=== PATIENT | female | born 1945 | race Caucasian/White ===

== ENCOUNTER 2016-06-19 21:03 | Emergency (ER) | payer MEDICARE, BC ==
[2016-06-19] MEDS ORDERED: ASPIRIN 81 MG CHEW TABLET As Ordered ONE (21:38)
[2016-06-19 21:44] LABS: MEAN CORPUSCULAR HEMOGLOBIN 30.6 pg (27.0-33.0); MEAN CORPUSCULAR HGB CONC 33.1 g/dl (32.0-36.5); MEAN CORPUSCULAR VOLUME 92.3 fl (80.0-96.0); RED CELL DISTRIBUTION WIDTH 12.3 % (11.5-14.5); WHITE BLOOD COUNT 8.7 K/mm3 (4.0-10.0)
[2016-06-19 21:48] LABS: INR 0.93
[2016-06-19 21:56] LABS: ANION GAP 6 MEQ/L (8-16); BLOOD UREA NITROGEN 14 MG/DL (7-18); CALCIUM LEVEL 8.6 MG/DL (8.8-10.2); CARBON DIOXIDE LEVEL 30 MEQ/L (21-32); CHLORIDE LEVEL 107 MEQ/L (98-107); CREATININE FOR GFR 0.75 MG/DL (0.55-1.02); GLOMERULAR FILTRATION RATE > 60.0 (>39); GLUCOSE, FASTING 93 MG/DL (83-110); SODIUM LEVEL 143 MEQ/L (136-145)
[2016-06-20] MEDS ORDERED: ISOVUE-370 76% 100ML VIAL (Q9967) As Ordered ONE (00:23)
--- NOTE | 2016-06-20 01:10 | REPUSA ---
CLINICAL HISTORY: Dyspnea, exclude PE. TECHNIQUE: Multiple incremental axial, coronal and oblique images are obtained from the thoracic inle t to the upper abdomen. Intravenous contrast material was administered as per pulmonary embolism prot ocol. COMMENTS: There is excellent opacification of pulmonary arterial system without evidence for pulmonary embolism . Aorta is of normal caliber without evidence for dissection or aneurysm. There is no evidence of pleural or parenchymal mass. Mild pulmonary emphysema. There are no pleural e ffusions. There is no evidence of hilar or mediastinal lymphadenopathy. The heart and great vessels a re within normal limits. Images of the upper abdomen demonstrate no evidence of adrenal mass. The bony structures are free of lytic or blastic lesions. Multilevel degenerative changes are seen in volving the visualized thoracolumbar spine. Scattered calcifications are seen involving the aorta and major branches compatible with atherosclero sis. 2.6 cm well-defined hypodense lesion of the right hepatic lobe. Small sliding hiatal hernia. IMPRESSION: No evidence for pulmonary embolism. Mild pulmonary emphysema. A well defined hypodense lesion of the right hepatic lobe. Thank you for your kind referral of this patient.
--- NOTE | 2016-06-20 03:08 | REP ---
Clinical: Acute chest pain . Comparison: 05/25/2016 . Technique: PA and lateral. Findings: The mediastinum and cardiac silhouette are normal. The lung [place] are relatively clear and without acute consolidation, effusion, or pneumothorax. The skeletal structures are intact and normal. Impression: 1. No acute cardiopulmonary process. Or focal consolidation appreciated. Signed by Tam Cunningham MD 06/20/2016 03:00 A
--- NOTE | 2016-06-20 04:07 | EDDOCDS ---
Nurse's Notes [facility] Name: Gaby Johnson Age: 71 yrs Sex: Female : 1945 Arrival Date: 06/19/2016 Time: 21:03 Bed OBSERVATION Private MD: Ally Sotelo L. Diagnosis: Chest pain, unspecified Presentation: 06/19 21:09 Presenting complaint: Patient states: chest pain radiating down left arm, intermittent af2 for 2-3 hours. denies n/v, SOB. Adult Sepsis Screening: The patient does not have new or worsening altered mentation. Patient's respiratory rate is less than 22. Systolic blood pressure is greater than 100. Patient has a qSOFA score of 0- Negative Sepsis Screen. Suicide/Homicide risk assessment- the patient denies having any suicidal and/or homicidal ideations and does not present with any other emotional, behavioral or mental health complaints. Status: Patient is not a service inspector or dependent. Transition of care: patient was not received from another setting of care. 21:09 Acuity: LUCIAN Level 2 af2 21:09 Method Of Arrival: Walkin/Carried/Asstd af2 21:13 Presenting complaint: pt states she was seen here for atrial fib last week. Aspirin was af2 not taken prior to arrival. Triage Assessment: 21:14 General: Appears in no apparent distress, Behavior is inappropriate for age. Pain: af2 Denies pain. Cardiovascular: Rhythm is sinus bradycardia No ectopy. Chest pain is denied. Respiratory: Airway is patent Respiratory effort is even, unlabored. GI: Denies nausea, vomiting. Derm: Skin is pink, warm & dry. Historical: - Allergies: Avelox (CHRISTENSEN); CEPHALOSPORINS; Ciprofloxacin (Swelling); Codeine Sulfate (Unknown); Crestor (hallucinations); Lipitor (hallucinations); Nitrofurantoin Macrocrystal (body aches); Novocain (heart races); Oxycodone-Acetaminophen; PENICILLINS; pravastatin (Anaphylaxis); SULFA (SULFONAMIDES) (Unknown); - Home Meds: 1. amlodipine 10 mg Oral tab 1 tab once daily 2. aspirin 81 mg Oral TbEC 1 tab once daily 3. atenolol 25 mg Oral tab 2 tabs 2 times per day 4. docusate sodium 100 mg Oral cap 1 cap once daily 5. Tylenol 325 mg Oral tab 2 tabs every 4-6 hours 6. wild yam 425 mg daily 7. Vitamin D3 1,000 unit oral chew 8. PreserVision Lutein 226-200-5-0.8 uh-bqno-hu-mg oral cap 9. nizatidine 150 mg oral cap 1 cap 2 times per day - PMHx: Asthma; Hypertension; Atrial Fib; - PSHx: Hysterectomy; Appendectomy; right foot; - Social history: Smoking status: Patient states former smoker of tobacco. No barriers to communication noted, The patient speaks fluent Czech. - Family history: Not pertinent. - : The pt / caregiver states he / she is not on anticoagulants. Home medication list is obtained from the patient. - Exposure Risk Screening:: None identified. Screenin:15 Screening information is obtained from the patient. Fall risk: At risk due to age. af2 Assistance ADL's: requires no assistance with activities of daily living. Abuse/DV Screen: The patient / caregiver reports he/she is: not in a situation that causes fear, pain or injury. Nutritional screening: No deficits noted. Advance Directives: There is no active DNR order. home support is adequate. Assessment: 21:16 General: Appears in no apparent distress, comfortable, Behavior is appropriate for age, af2 cooperative. Pain: Denies pain. Neurological: Level of Consciousness is awake, alert, obeys commands, Oriented to person, place, time. Cardiovascular: Heart tones S1 S2 present Rhythm is sinus bradycardia No ectopy. Respiratory: Airway is patent Respiratory effort is even, unlabored, Breath sounds are clear bilaterally. Derm: Skin is normal. 22:15 General: Appears in no apparent distress, comfortable, Behavior is appropriate for age, af2 cooperative. Neurological: Level of Consciousness is awake, alert, obeys commands, Oriented to person, place, time. Respiratory: Airway is patent Respiratory effort is even, unlabored. Derm: Skin is normal. 23:15 General: Appears in no apparent distress, comfortable, Behavior is appropriate for age, af2 cooperative. Neurological: Level of Consciousness is awake, alert, obeys commands, Oriented to person, place, time. Respiratory: Airway is patent Respiratory effort is even, unlabored. Derm: Skin is normal. 06/20 00:15 General: Appears in no apparent distress, comfortable, Behavior is appropriate for age, af2 cooperative. Neurological: Level of Consciousness is awake, alert, obeys commands, Oriented to person, place, time. Respiratory: Airway is patent Respiratory effort is even, unlabored. Derm: Skin is normal. 01:42 General: Appears in no apparent distress, comfortable, Behavior is appropriate for age, af2 cooperative. Neurological: Level of Consciousness is awake, alert, obeys commands, Oriented to person, place, time. Respiratory: Airway is patent Respiratory effort is even, unlabored. Derm: Skin is normal. 02:45 General: Appears in no apparent distress, comfortable, Behavior is agitated, pt states af2 she needs to leave soon, offered pt to leave AMA after speaking with provider. pt states she would like to stay for the rest of testing.. Cardiovascular: Rhythm is sinus bradycardia No ectopy. Respiratory: Airway is patent Respiratory effort is even, unlabored. Derm: Skin is normal. 04:05 General: Appears in no apparent distress, Discharge instructions reviewed with pt sls1 including medication use and follow up with cardiology, pt verbalizes understanding of all instructions . Pain: Denies pain. Neurological: Level of Consciousness is awake, alert. Respiratory: No deficits noted. Vital Signs: 06/19 20:48 BP 139 / 65 (auto/); af2 20:48 Pulse 84 MON; Pulse Ox 96% ; af2 21:04 BP 166 / 86; Pulse 57; Resp 18; Pulse Ox 100% on R/A; Weight 66.68 kg (R); Height 5 ft. elp 4 in. (162.56 cm) (R); Pain 5/10; 21:27 BP 154 / 71 (auto/); af2 21:27 Pulse 54 MON; Pulse Ox 99% ; af2 21:40 BP 166 / 67 (auto/); af2 21:40 Pulse 90 MON; Pulse Ox 93% ; af2 06/20 00:32 Pulse 54 MON; Pulse Ox 97% ; af2 02:13 BP 131 / 63 (auto/); af2 02:15 BP 131 / 63; salty 02:52 BP 150 / 118 (auto/); af2 02:52 Pulse 52 MON; Resp 18 S; Pulse Ox 96% on R/A; af2 03:55 BP 129 / 66; Pulse 58; Resp 18; Temp 97.0(TE); Pulse Ox 95% on R/A; Pain 0/10; salty 06/19 21:04 Body Mass Index 25.23 (66.68 kg, 162.56 cm) elp Vitals: 06/19 21:04 Log In Time: June 19, 2016 at 21:02. RN notified that patient meets Red Flag elp criteria. ED Course: 21:04 Patient visited by Rosa Maria Bertrand PCA. elp 21:04 Ally Sotelo is Private Physician. elp 21:04 Patient moved to Waiting elp 21:05 Magnolia Hernandez RN is Primary Nurse. cz 21:05 Patient moved to 6 cz 21:06 Jace Cramer DO is Attending Physician. cs11 21:06 Patient visited by Jace Cramer DO. cs11 21:11 Triage Initiated af2 21:12 EKG done. (by ED staff). Reviewed by Jace Cramer DO. salty 21:13 Pt greeted and oriented to ED. Patient advised of names of staff involved in care, salty location of call sanchez, wait times and NPO status. Patient has correct armband on for positive identification. Placed in gown. Bed in low position. Call light in reach. Side rails up X2. athletic monitor on. Pulse ox on. NIBP on. 21:16 The patient / caregiver is instructed regarding the plan of care and ED course. af2 21:18 Patient visited by Magnolia Hernandez RN. af2 21:39 Patient moved to OBSERVATION cs11 22:16 [facility] Payment Agreement was scanned into [facility] [employer] and attached to record. zo 22:56 Patient visited by Magnolia Hernandez RN. af2 06/20 01:20 CT Chest Angio R/O PE Returned. EDMS 01:43 Patient visited by Magnolia Hernandez RN. af2 02:12 Patient visited by Magnolia Hernandez RN. af2 02:54 Patient visited by Alicia Langford PCA. salty 02:54 CARDIAC MARKER PANEL Sent. salty 02:54 EKG done. (by ED staff). Reviewed by Jace Cramer DO. salty 03:19 Chest, 2 View (pa\E\lat) Returned. EDMS 03:34 Patient visited by Magnolia Hernandez RN. af2 03:50 Rodolfo Herndon is Referral Physician. cs11 03:55 Patient visited by Alicia Langford PCA. salty 04:05 No IV's were initiated during this patient's visit. No procedures done that require sls1 assistance. Administered Medications: 06/19 21:45 Drug: Aspirin 324 mg [aspirin 81 mg chewable tablet (4 tabs)] Route: PO; af2 Order Results: Lab Order: CBC; SPEC'M 06/19/16 21:17 Test: WHITE BLOOD COUNT; Value: 8.7; Range: 4.0-10.0; Units: K/mm3; Status: F Test: RED BLOOD COUNT; Value: 4.48; Range: 4.00-5.40; Units: M/mm3; Status: F Test: HEMOGLOBIN; Value: 13.7; Range: 12.0-16.0; Units: g/dl; Status: F Test: HEMATOCRIT; Value: 41.4; Range: 36.0-47.0; Units: %; Status: F Test: MEAN CORPUSCULAR VOLUME; Value: 92.3; Range: 80.0-96.0; Units: fl; Status: F Test: MEAN CORPUSCULAR HEMOGLOBIN; Value: 30.6; Range: 27.0-33.0; Units: pg; Status: F Test: MEAN CORPUSCULAR HGB CONC; Value: 33.1; Range: 32.0-36.5; Units: g/dl; Status: F Test: RED CELL DISTRIBUTION WIDTH; Value: 12.3; Range: 11.5-14.5; Units: %; Status: F Test: PLATELET COUNT, AUTOMATED; Value: 198; Range: 150-450; Units: k/mm3; Status: F Lab Order: MED Profile; SPEC'M 06/19/16 21:17 Test: GLUCOSE, FASTING; Value: 93; Range: 83-110; Units: MG/DL; Status: F Test: BLOOD UREA NITROGEN; Value: 14; Range: 7-18; Units: MG/DL; Status: F Test: CREATININE FOR GFR; Value: 0.75; Range: 0.55-1.02; Units: MG/DL; Status: F Test: GLOMERULAR FILTRATION RATE; Value: > 60.0; Range: >39; Status: F Test: SODIUM LEVEL; Value: 143; Range: 136-145; Units: MEQ/L; Status: F Test: POTASSIUM SERUM; Value: 4.0; Range: 3.5-5.1; Units: MEQ/L; Status: F Test: CHLORIDE LEVEL; Value: 107; Range: 98-107; Units: MEQ/L; Status: F Test: CARBON DIOXIDE LEVEL; Value: 30; Range: 21-32; Units: MEQ/L; Status: F Test: ANION GAP; Value: 6; Range: 8-16; Abnormal: Below low normal; Units: MEQ/L; Status: F Test: CALCIUM LEVEL; Value: 8.6; Range: 8.8-10.2; Abnormal: Below low normal; Units: MG/DL; Status: F Test Note: ; Units are mL/min/1.73 m2 Chronic Kidney Disease Staging per NKF: Stage I & II GFR >=60 Normal to Mildly Decreased Stage III GFR 30-59 Moderately Decreased Stage IV GFR 15-29 Severely Decreased Stage V GFR <15 Very Little GFR Left ESRD GFR <15 on SEARCH ENGINE MARKETING SPECIALIST Lab Order: Cardiac Marker Panel; SPEC'M 06/19/16 21:17 Test: CPK CREATINE PHOSPHOKINASE; Value: 96; Range: 26-192; Units: U/L; Status: F Test: CK-MB VALUE MASS; Value: 2.3; Range: 0.0-3.6; Units: NG/ML; Status: F Test: MB/CK RELATIVE INDEX; Value: 2.39; Range: < OR =4; Status: F Test: TROPONIN I; Value: < 0.02; Range: < 0.10; Units: NG/ML; Status: F Test Note: ; DIAGNOSIS CRITERIA MMB ng/ml Relative Index (RI) NON-AMI < or = 5 N/A SUNG ZONE > 5 < or = 4 AMI > 5 > 4 Lab Order: Pt & Aptt; SPEC'M 06/19/16 21:17 Test: PROTHROMBIN TIME; Value: 12.6; Range: 12.3-14.5; Units: SECONDS; Status: F Test: INR; Value: 0.93; Status: F Test: PARTIAL THROMBOPLASTIN TIME; Value: 28.2; Range: 26.6-37.1; Units: SECONDS; Status: F Test Note: ; THERAPUTIC HUMAN INR VALUES INDICATIONS NORMAL RANGES PROPHYLAXIS/TREATMENT OF: VENOUS THROMBOSIS 2.0-3.0 PULMONARY EMBOLISM 2.0-3.0 PREVENTION OF SYSTEMIC EMBOLISM FROM: TISSUE HEART VALVES 2.0-3.0 ACUTE MYOCARDIAL INFARCTION 2.0-3.0 VALVULAR HEART DISEASE 2.0-3.0 ATRIAL FIBRILLATION 2.0-3.0 MECHANICAL VALVES(HIGH RISK) 2.5-3.5 RECURRENT MYOCARDIAL INFARCTION 2.5-3.5 Lab Order: CARDIAC MARKER PANEL; SPEC'M 06/20/16 02:51 Test: CPK CREATINE PHOSPHOKINASE; Value: 76; Range: 26-192; Units: U/L; Status: F Test: CK-MB VALUE MASS; Value: 1.9; Range: 0.0-3.6; Units: NG/ML; Status: F Test: MB/CK RELATIVE INDEX; Value: 2.50; Range: < OR =4; Status: F Test: TROPONIN I; Value: < 0.02; Range: < 0.10; Units: NG/ML; Status: F Test Note: ; DIAGNOSIS CRITERIA MMB ng/ml Relative Index (RI) NON-AMI < or = 5 N/A SUNG ZONE > 5 < or = 4 AMI > 5 > 4 Radiology Order: Chest, 2 View (pa\E\lat) Test: Chest, 2 View (pa\E\lat) REASON FOR EXAMINATION: Chest Pain; Clinical: Acute chest pain .; ; Comparison: 05/25/2016 .; ; Technique: PA and lateral.; ; Findings:; The mediastinum and cardiac silhouette are normal. The lung [place] are; relatively clear and without acute consolidation, effusion, or pneumothorax. The; skeletal structures are intact and normal.; ; Impression:; 1. No acute cardiopulmonary process. Or focal consolidation appreciated.; ; ; Signed by; Tam Cunningham MD 06/20/2016 03:00 A; Radiology Order: CT Chest Angio R/O PE Test: CT Chest Angio R/O PE REASON FOR EXAMINATION: Chest Pain; ; CLINICAL HISTORY: Dyspnea, exclude PE.; TECHNIQUE: Multiple incremental axial, coronal and oblique images are obtained from the thoracic inle; t to the upper abdomen. Intravenous contrast material was administered as per pulmonary embolism prot; ocol.; COMMENTS:; There is excellent opacification of pulmonary arterial system without evidence for pulmonary embolism; . Aorta is of normal caliber without evidence for dissection or aneurysm.; There is no evidence of pleural or parenchymal mass. Mild pulmonary emphysema. There are no pleural e; ffusions. There is no evidence of hilar or mediastinal lymphadenopathy. The heart and great vessels a; re within normal limits.; Images of the upper abdomen demonstrate no evidence of adrenal mass.; The bony structures are free of lytic or blastic lesions. Multilevel degenerative changes are seen in; volving the visualized thoracolumbar spine.; Scattered calcifications are seen involving the aorta and major branches compatible with atherosclero; sis.; 2.6 cm well-defined hypodense lesion of the right hepatic lobe.; Small sliding hiatal hernia.; IMPRESSION:; No evidence for pulmonary embolism.; Mild pulmonary emphysema.; A well defined hypodense lesion of the right hepatic lobe.; Thank you for your kind referral of this patient.; ; Outcome: 06/20 03:51 Discharge ordered by Provider. 11 04:05 Discharge Assessment: Patient awake, alert and oriented x 3. No cognitive and/or sls1 functional deficits noted. Patient verbalized understanding of disposition instructions. patient administered narcotics - no. The following High Risk Discharge criteria are identified: None. Discharged to home ambulatory. Condition: stable. CT Study completed. Property :Personal belongings accompany Pt. 04:06 Patient left the ED. sls1 Signatures: Dispatcher [employer] EDMS Rupesh Carver RN RN cz Olin, Zoeann zo Ewald, Destiny, ACTIVITIES DIRECTOR SCOUTING ACTIVITIES DIRECTOR SCOUTING Jen Lopez RN RN sls1 Jace Carmer DO DO cs11 Rosa Maria Bertrand, ACTIVITIES DIRECTOR SCOUTING ACTIVITIES DIRECTOR SCOUTING Magnolia Mary RN RN af2 MTDD
--- NOTE | 2016-06-20 04:07 | EDDOCDS ---
Physician Documentation [facility] Name: Gaby Johnson Age: 71 yrs Sex: Female : 1945 Arrival Date: 06/19/2016 Time: 21:03 Bed OBSERVATION Private MD: Ally Sotelo L. Disposition: 06/20/16 03:51 Discharged to Home/Self Care. Impression: Chest pain, unspecified. - Condition is Stable. - Prescriptions for Aspirin 81 mg - take 1 tablet by ORAL route once daily; 90 tablet. - Medication Reconciliation, Local Pharmacy Hours form. - Follow up: Rodolfo Herndon; When: Call to arrange an appointment; Reason: Recheck today's complaints. - Problem is new. - Symptoms have improved. Historical: - Allergies: Avelox (CHRISTENSEN); CEPHALOSPORINS; Ciprofloxacin (Swelling); Codeine Sulfate (Unknown); Crestor (hallucinations); Lipitor (hallucinations); Nitrofurantoin Macrocrystal (body aches); Novocain (heart races); Oxycodone-Acetaminophen; PENICILLINS; pravastatin (Anaphylaxis); SULFA (SULFONAMIDES) (Unknown); - Home Meds: 1. amlodipine 10 mg Oral tab 1 tab once daily 2. aspirin 81 mg Oral TbEC 1 tab once daily 3. atenolol 25 mg Oral tab 2 tabs 2 times per day 4. docusate sodium 100 mg Oral cap 1 cap once daily 5. Tylenol 325 mg Oral tab 2 tabs every 4-6 hours 6. wild yam 425 mg daily 7. Vitamin D3 1,000 unit oral chew 8. PreserVision Lutein 226-200-5-0.8 fb-neft-zn-mg oral cap 9. nizatidine 150 mg oral cap 1 cap 2 times per day - PMHx: Asthma; Hypertension; Atrial Fib; - PSHx: Hysterectomy; Appendectomy; right foot; - Social history: Smoking status: Patient states former smoker of tobacco. No barriers to communication noted, The patient speaks fluent Macedonian. - Family history: Not pertinent. - : The pt / caregiver states he / she is not on anticoagulants. Home medication list is obtained from the patient. - Exposure Risk Screening:: None identified. Vital Signs: 06/19 20:48 BP 139 / 65 (auto/); af2 20:48 Pulse 84 MON; Pulse Ox 96% ; af2 21:04 BP 166 / 86; Pulse 57; Resp 18; Pulse Ox 100% on R/A; Weight 66.68 kg / 147 lbs (R); elp Height 5 ft. 4 in. (162.56 cm) (R); Pain 5/10; 21:27 BP 154 / 71 (auto/); af2 21:27 Pulse 54 MON; Pulse Ox 99% ; af2 21:40 BP 166 / 67 (auto/); af2 21:40 Pulse 90 MON; Pulse Ox 93% ; af2 06/20 00:32 Pulse 54 MON; Pulse Ox 97% ; af2 02:13 BP 131 / 63 (auto/); af2 02:15 BP 131 / 63; salty 02:52 BP 150 / 118 (auto/); af2 02:52 Pulse 52 MON; Resp 18 S; Pulse Ox 96% on R/A; af2 03:55 BP 129 / 66; Pulse 58; Resp 18; Temp 97.0(TE); Pulse Ox 95% on R/A; Pain 0/10; salty 06/19 21:04 Body Mass Index 25.23 (66.68 kg, 162.56 cm) elp MDM: 06/19 21:07 ECG WITH READING ER PHYS+CARDIAG ordered. EDMS 21:20 Aspirin 324 mg PO once ordered. cs11 21:22 Chest, 2 View (pa\E\lat) Ordered. EDMS 21:33 IV Saline Lock ordered. cs11 21:34 CBC Ordered. EDMS 21:34 MED Profile Ordered. EDMS 21:34 Cardiac Marker Panel Ordered. EDMS 21:34 Pt & Aptt Ordered. EDMS 22:15 Financial registration complete. zo 22:16 [facility] Payment Agreement was scanned into [employer] and attached to record. zo 23:01 MED Profile Reviewed. cs11 23:01 CBC Reviewed. cs11 23:01 Cardiac Marker Panel Reviewed. cs11 23:01 Pt & Aptt Reviewed. cs11 23:04 CT Chest Angio R/O PE Ordered. EDMS 06/20 02:44 Misc Sanitation Worker Hosing Machinery Order ordered. cs11 02:48 Misc Sanitation Worker Hosing Machinery Order complete. tmm1 02:48 ECG WITH READING ER PHYS ordered. EDMS 02:49 CARDIAC MARKER PANEL Ordered. EDMS 03:49 CARDIAC MARKER PANEL Reviewed. cs11 03:49 Chest, 2 View (pa\E\lat) Reviewed. cs11 03:49 CT Chest Angio R/O PE Reviewed. cs11 Administered Medications: 06/19 21:45 Drug: Aspirin 324 mg [aspirin 81 mg chewable tablet (4 tabs)] Route: PO; af2 Signatures: Dispatcher [employer] Radha Solorzaon Shannon RN RN sls1 Jace Cramer DO DO cs11 Kisha Ashford, BEAD PICKER BEAD PICKER tmm1 Magnolia Hernandez RN RN af2 The chart was reviewed and I authenticate all verbal orders and agree with the evaluation and treatment provided.Attachments: 22:16 [facility] [place] zo MTDD
--- NOTE | 2016-06-20 12:56 | ECGEPIP ---
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
--- NOTE | 2016-06-20 13:01 | ECGEPIP ---
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
--- NOTE | 2016-06-22 05:07 | EDDOCDS ---
Physician Documentation [facility] Name: Gaby Johnson Age: 71 yrs Sex: Female : 1945 Arrival Date: 06/19/2016 Time: 21:03 Bed OBSERVATION Private MD: Ally Clements L. Disposition: 06/20/16 03:51 Discharged to Home/Self Care. Impression: Chest pain, unspecified. - Condition is Stable. - Prescriptions for Aspirin 81 mg - take 1 tablet by ORAL route once daily; 90 tablet. - Medication Reconciliation, Local Pharmacy Hours form. - Follow up: Rodolfo Herndon; When: Call to arrange an appointment; Reason: Recheck today's complaints. - Problem is new. - Symptoms have improved. Historical: - Allergies: Avelox (CHRISTENSEN); CEPHALOSPORINS; Ciprofloxacin (Swelling); Codeine Sulfate (Unknown); Crestor (hallucinations); Lipitor (hallucinations); Nitrofurantoin Macrocrystal (body aches); Novocain (heart races); Oxycodone-Acetaminophen; PENICILLINS; pravastatin (Anaphylaxis); SULFA (SULFONAMIDES) (Unknown); - Home Meds: 1. amlodipine 10 mg Oral tab 1 tab once daily 2. aspirin 81 mg Oral TbEC 1 tab once daily 3. atenolol 25 mg Oral tab 2 tabs 2 times per day 4. docusate sodium 100 mg Oral cap 1 cap once daily 5. Tylenol 325 mg Oral tab 2 tabs every 4-6 hours 6. wild yam 425 mg daily 7. Vitamin D3 1,000 unit oral chew 8. PreserVision Lutein 226-200-5-0.8 rz-crnc-vj-mg oral cap 9. nizatidine 150 mg oral cap 1 cap 2 times per day - PMHx: Asthma; Hypertension; Atrial Fib; - PSHx: Hysterectomy; Appendectomy; right foot; - Social history: Smoking status: Patient states former smoker of tobacco. No barriers to communication noted, The patient speaks fluent Frisian. - Family history: Not pertinent. - : The pt / caregiver states he / she is not on anticoagulants. Home medication list is obtained from the patient. - Exposure Risk Screening:: None identified. Vital Signs: 06/19 20:48 BP 139 / 65 (auto/); af2 20:48 Pulse 84 MON; Pulse Ox 96% ; af2 21:04 BP 166 / 86; Pulse 57; Resp 18; Pulse Ox 100% on R/A; Weight 66.68 kg / 147 lbs (R); elp Height 5 ft. 4 in. (162.56 cm) (R); Pain 5/10; 21:27 BP 154 / 71 (auto/); af2 21:27 Pulse 54 MON; Pulse Ox 99% ; af2 21:40 BP 166 / 67 (auto/); af2 21:40 Pulse 90 MON; Pulse Ox 93% ; af2 06/20 00:32 Pulse 54 MON; Pulse Ox 97% ; af2 02:13 BP 131 / 63 (auto/); af2 02:15 BP 131 / 63; salty 02:52 BP 150 / 118 (auto/); af2 02:52 Pulse 52 MON; Resp 18 S; Pulse Ox 96% on R/A; af2 03:55 BP 129 / 66; Pulse 58; Resp 18; Temp 97.0(TE); Pulse Ox 95% on R/A; Pain 0/10; salty 06/19 21:04 Body Mass Index 25.23 (66.68 kg, 162.56 cm) elp MDM: 06/19 21:07 ECG WITH READING ER PHYS+CARDIAG ordered. EDMS 21:20 Aspirin 324 mg PO once ordered. cs11 21:22 Chest, 2 View (pa\E\lat) Ordered. EDMS 21:33 IV Saline Lock ordered. cs11 21:34 CBC Ordered. EDMS 21:34 MED Profile Ordered. EDMS 21:34 Cardiac Marker Panel Ordered. EDMS 21:34 Pt & Aptt Ordered. EDMS 22:15 Financial registration complete. zo 22:16 [facility] Payment Agreement was scanned into Pic[employer] and attached to record. zo 23:01 MED Profile Reviewed. cs11 23:01 CBC Reviewed. cs11 23:01 Cardiac Marker Panel Reviewed. cs11 23:01 Pt & Aptt Reviewed. cs11 23:04 CT Chest Angio R/O PE Ordered. EDMS 06/20 02:44 Misc Car Wash Manager Order ordered. cs11 02:48 Misc Car Wash Manager Order complete. tmm1 02:48 ECG WITH READING ER PHYS ordered. EDMS 02:49 CARDIAC MARKER PANEL Ordered. EDMS 03:49 CARDIAC MARKER PANEL Reviewed. cs11 03:49 Chest, 2 View (pa\E\lat) Reviewed. cs11 03:49 CT Chest Angio R/O PE Reviewed. cs11 12:41 T-Sheet-- Draft Copy was scanned into [employer] and attached to record. gb 12:41 ECG/EKG was scanned into MEDHOST and attached to record. gb 12:42 Radiology Report was scanned into MEDHOST and attached to record. gb 06/21 20:24 ED course: ally clements faxed formal report of cta for fu mlg. ml Administered Medications: 06/19 21:45 Drug: Aspirin 324 mg [aspirin 81 mg chewable tablet (4 tabs)] Route: PO; af2 Signatures: Dispatcher Med[employer] EDMS Faisal Bustamante MD MD ml Leslie Roblero, Reg Reg gb Radha He Shannon, RN RN sls1 Jace Cramer, DO cs11 Makeda, Kisha, ROLLER INSPECTOR AND MENDER ROLLER INSPECTOR AND MENDER tmm1 Magnolia Hernandez,RN RN af2 The chart was reviewed and I authenticate all verbal orders and agree with the evaluation and treatment provided.Attachments: 22:16 [facility] Payment Agreement zo 06/20 12:41 T-Sheet-- Draft Copy gb 12:41 ECG/EKG gb Chart Complete MTDD
--- NOTE | 2016-06-22 05:07 | EDDOCDS ---
Physician Documentation [facility] Name: Gaby Johnson Age: 71 yrs Sex: Female : 1945 Arrival Date: 06/19/2016 Time: 21:03 Bed OBSERVATION Private MD: Ally Clements L. Disposition: 06/20/16 03:51 Discharged to Home/Self Care. Impression: Chest pain, unspecified. - Condition is Stable. - Prescriptions for Aspirin 81 mg - take 1 tablet by ORAL route once daily; 90 tablet. - Medication Reconciliation, Local Pharmacy Hours form. - Follow up: Rodolfo Herndon; When: Call to arrange an appointment; Reason: Recheck today's complaints. - Problem is new. - Symptoms have improved. Historical: - Allergies: Avelox (CHRISTENSEN); CEPHALOSPORINS; Ciprofloxacin (Swelling); Codeine Sulfate (Unknown); Crestor (hallucinations); Lipitor (hallucinations); Nitrofurantoin Macrocrystal (body aches); Novocain (heart races); Oxycodone-Acetaminophen; PENICILLINS; pravastatin (Anaphylaxis); SULFA (SULFONAMIDES) (Unknown); - Home Meds: 1. amlodipine 10 mg Oral tab 1 tab once daily 2. aspirin 81 mg Oral TbEC 1 tab once daily 3. atenolol 25 mg Oral tab 2 tabs 2 times per day 4. docusate sodium 100 mg Oral cap 1 cap once daily 5. Tylenol 325 mg Oral tab 2 tabs every 4-6 hours 6. wild yam 425 mg daily 7. Vitamin D3 1,000 unit oral chew 8. PreserVision Lutein 226-200-5-0.8 fr-baow-zn-mg oral cap 9. nizatidine 150 mg oral cap 1 cap 2 times per day - PMHx: Asthma; Hypertension; Atrial Fib; - PSHx: Hysterectomy; Appendectomy; right foot; - Social history: Smoking status: Patient states former smoker of tobacco. No barriers to communication noted, The patient speaks fluent Korean. - Family history: Not pertinent. - : The pt / caregiver states he / she is not on anticoagulants. Home medication list is obtained from the patient. - Exposure Risk Screening:: None identified. Vital Signs: 06/19 20:48 BP 139 / 65 (auto/); af2 20:48 Pulse 84 MON; Pulse Ox 96% ; af2 21:04 BP 166 / 86; Pulse 57; Resp 18; Pulse Ox 100% on R/A; Weight 66.68 kg / 147 lbs (R); elp Height 5 ft. 4 in. (162.56 cm) (R); Pain 5/10; 21:27 BP 154 / 71 (auto/); af2 21:27 Pulse 54 MON; Pulse Ox 99% ; af2 21:40 BP 166 / 67 (auto/); af2 21:40 Pulse 90 MON; Pulse Ox 93% ; af2 06/20 00:32 Pulse 54 MON; Pulse Ox 97% ; af2 02:13 BP 131 / 63 (auto/); af2 02:15 BP 131 / 63; salty 02:52 BP 150 / 118 (auto/); af2 02:52 Pulse 52 MON; Resp 18 S; Pulse Ox 96% on R/A; af2 03:55 BP 129 / 66; Pulse 58; Resp 18; Temp 97.0(TE); Pulse Ox 95% on R/A; Pain 0/10; salty 06/19 21:04 Body Mass Index 25.23 (66.68 kg, 162.56 cm) elp MDM: 06/19 21:07 ECG WITH READING ER PHYS+CARDIAG ordered. EDMS 21:20 Aspirin 324 mg PO once ordered. cs11 21:22 Chest, 2 View (pa\E\lat) Ordered. EDMS 21:33 IV Saline Lock ordered. cs11 21:34 CBC Ordered. EDMS 21:34 MED Profile Ordered. EDMS 21:34 Cardiac Marker Panel Ordered. EDMS 21:34 Pt & Aptt Ordered. EDMS 22:15 Financial registration complete. zo 22:16 [facility] Payment Agreement was scanned into [employer] and attached to record. zo 23:01 MED Profile Reviewed. cs11 23:01 CBC Reviewed. cs11 23:01 Cardiac Marker Panel Reviewed. cs11 23:01 Pt & Aptt Reviewed. cs11 23:04 CT Chest Angio R/O PE Ordered. EDMS 06/20 02:44 Misc Transportation Maintenance Worker Order ordered. cs11 02:48 Misc Transportation Maintenance Worker Order complete. tmm1 02:48 ECG WITH READING ER PHYS ordered. EDMS 02:49 CARDIAC MARKER PANEL Ordered. EDMS 03:49 CARDIAC MARKER PANEL Reviewed. cs11 03:49 Chest, 2 View (pa\E\lat) Reviewed. cs11 03:49 CT Chest Angio R/O PE Reviewed. cs11 12:41 T-Sheet-- Draft Copy was scanned into [employer] and attached to record. gb 12:41 ECG/EKG was scanned into MEDHOST and attached to record. gb 12:42 Radiology Report was scanned into MEDHOST and attached to record. gb 06/21 20:24 ED course: ally clements faxed formal report of cta for fu mlg. ml Administered Medications: 06/19 21:45 Drug: Aspirin 324 mg [aspirin 81 mg chewable tablet (4 tabs)] Route: PO; af2 Signatures: Dispatcher Med[employer] EDMS Faisal Bustamante MD MD ml Leslie Roblero, Reg Reg gb Radha He Shannon, RN RN sls1 Jace Cramer, DO cs11 Makeda, Kisha, HEALTH AND SAFETY COORDINATOR HEALTH AND SAFETY COORDINATOR tmm1 Magnolia Hernandez,RN RN af2 The chart was reviewed and I authenticate all verbal orders and agree with the evaluation and treatment provided.Attachments: 22:16 [facility] Payment Agreement zo 06/20 12:41 T-Sheet-- Draft Copy gb 12:41 ECG/EKG gb Chart Complete MTDD
--- NOTE | 2016-06-22 05:07 | EDDOCDS ---
Nurse's Notes [facility] Name: Remigio Johnson Age: 71 yrs Sex: Female : 1945 Arrival Date: 06/19/2016 Time: 21:03 Bed OBSERVATION Private MD: Ally Sotelo L. Diagnosis: Chest pain, unspecified Presentation: 06/19 21:09 Presenting complaint: Patient states: chest pain radiating down left arm, intermittent af2 for 2-3 hours. denies n/v, SOB. Adult Sepsis Screening: The patient does not have new or worsening altered mentation. Patient's respiratory rate is less than 22. Systolic blood pressure is greater than 100. Patient has a qSOFA score of 0- Negative Sepsis Screen. Suicide/Homicide risk assessment- the patient denies having any suicidal and/or homicidal ideations and does not present with any other emotional, behavioral or mental health complaints. Status: Patient is not a claims customer service representative or dependent. Transition of care: patient was not received from another setting of care. 21:09 Acuity: LUCIAN Level 2 af2 21:09 Method Of Arrival: Walkin/Carried/Asstd af2 21:13 Presenting complaint: pt states she was seen here for atrial fib last week. Aspirin was af2 not taken prior to arrival. Triage Assessment: 21:14 General: Appears in no apparent distress, Behavior is inappropriate for age. Pain: af2 Denies pain. Cardiovascular: Rhythm is sinus bradycardia No ectopy. Chest pain is denied. Respiratory: Airway is patent Respiratory effort is even, unlabored. GI: Denies nausea, vomiting. Derm: Skin is pink, warm & dry. Historical: - Allergies: Avelox (CHRISTENSEN); CEPHALOSPORINS; Ciprofloxacin (Swelling); Codeine Sulfate (Unknown); Crestor (hallucinations); Lipitor (hallucinations); Nitrofurantoin Macrocrystal (body aches); Novocain (heart races); Oxycodone-Acetaminophen; PENICILLINS; pravastatin (Anaphylaxis); SULFA (SULFONAMIDES) (Unknown); - Home Meds: 1. amlodipine 10 mg Oral tab 1 tab once daily 2. aspirin 81 mg Oral TbEC 1 tab once daily 3. atenolol 25 mg Oral tab 2 tabs 2 times per day 4. docusate sodium 100 mg Oral cap 1 cap once daily 5. Tylenol 325 mg Oral tab 2 tabs every 4-6 hours 6. wild yam 425 mg daily 7. Vitamin D3 1,000 unit oral chew 8. PreserVision Lutein 226-200-5-0.8 kt-[id number]-[id number]-mg oral cap 9. nizatidine 150 mg oral cap 1 cap 2 times per day - PMHx: Asthma; Hypertension; Atrial Fib; - PSHx: Hysterectomy; Appendectomy; right foot; - Social history: Smoking status: Patient states former smoker of tobacco. No barriers to communication noted, The patient speaks fluent Japanese. - Family history: Not pertinent. - : The pt / caregiver states he / she is not on anticoagulants. Home medication list is obtained from the patient. - Exposure Risk Screening:: None identified. Screenin:15 Screening information is obtained from the patient. Fall risk: At risk due to age. af2 Assistance ADL's: requires no assistance with activities of daily living. Abuse/DV Screen: The patient / caregiver reports he/she is: not in a situation that causes fear, pain or injury. Nutritional screening: No deficits noted. Advance Directives: There is no active DNR order. home support is adequate. Assessment: 21:16 General: Appears in no apparent distress, comfortable, Behavior is appropriate for age, af2 cooperative. Pain: Denies pain. Neurological: Level of Consciousness is awake, alert, obeys commands, Oriented to person, place, time. Cardiovascular: Heart tones S1 S2 present Rhythm is sinus bradycardia No ectopy. Respiratory: Airway is patent Respiratory effort is even, unlabored, Breath sounds are clear bilaterally. Derm: Skin is normal. 22:15 General: Appears in no apparent distress, comfortable, Behavior is appropriate for age, af2 cooperative. Neurological: Level of Consciousness is awake, alert, obeys commands, Oriented to person, place, time. Respiratory: Airway is patent Respiratory effort is even, unlabored. Derm: Skin is normal. 23:15 General: Appears in no apparent distress, comfortable, Behavior is appropriate for age, af2 cooperative. Neurological: Level of Consciousness is awake, alert, obeys commands, Oriented to person, place, time. Respiratory: Airway is patent Respiratory effort is even, unlabored. Derm: Skin is normal. 06/20 00:15 General: Appears in no apparent distress, comfortable, Behavior is appropriate for age, af2 cooperative. Neurological: Level of Consciousness is awake, alert, obeys commands, Oriented to person, place, time. Respiratory: Airway is patent Respiratory effort is even, unlabored. Derm: Skin is normal. 01:42 General: Appears in no apparent distress, comfortable, Behavior is appropriate for age, af2 cooperative. Neurological: Level of Consciousness is awake, alert, obeys commands, Oriented to person, place, time. Respiratory: Airway is patent Respiratory effort is even, unlabored. Derm: Skin is normal. 02:45 General: Appears in no apparent distress, comfortable, Behavior is agitated, pt states af2 she needs to leave soon, offered pt to leave AMA after speaking with provider. pt states she would like to stay for the rest of testing.. Cardiovascular: Rhythm is sinus bradycardia No ectopy. Respiratory: Airway is patent Respiratory effort is even, unlabored. Derm: Skin is normal. 04:05 General: Appears in no apparent distress, Discharge instructions reviewed with pt sls1 including medication use and follow up with cardiology, pt verbalizes understanding of all instructions . Pain: Denies pain. Neurological: Level of Consciousness is awake, alert. Respiratory: No deficits noted. Vital Signs: 06/19 20:48 BP 139 / 65 (auto/); af2 20:48 Pulse 84 MON; Pulse Ox 96% ; af2 21:04 BP 166 / 86; Pulse 57; Resp 18; Pulse Ox 100% on R/A; Weight 66.68 kg (R); Height 5 ft. elp 4 in. (162.56 cm) (R); Pain 5/10; 21:27 BP 154 / 71 (auto/); af2 21:27 Pulse 54 MON; Pulse Ox 99% ; af2 21:40 BP 166 / 67 (auto/); af2 21:40 Pulse 90 MON; Pulse Ox 93% ; af2 06/20 00:32 Pulse 54 MON; Pulse Ox 97% ; af2 02:13 BP 131 / 63 (auto/); af2 02:15 BP 131 / 63; salty 02:52 BP 150 / 118 (auto/); af2 02:52 Pulse 52 MON; Resp 18 S; Pulse Ox 96% on R/A; af2 03:55 BP 129 / 66; Pulse 58; Resp 18; Temp 97.0(TE); Pulse Ox 95% on R/A; Pain 0/10; salty 06/19 21:04 Body Mass Index 25.23 (66.68 kg, 162.56 cm) elp Vitals: 06/19 21:04 Log In Time: June 19, 2016 at 21:02. RN notified that patient meets Red Flag elp criteria. ED Course: 21:04 Patient visited by Rosa Maria Bertrand PCA. elp 21:04 Ally Sotelo is Private Physician. elp 21:04 Patient moved to Waiting elp 21:05 Magnolia Hernandez RN is Primary Nurse. cz 21:05 Patient moved to 6 cz 21:06 Van Díaz DO is Attending Physician. cs11 21:06 Patient visited by Van Díaz DO. cs11 21:11 Triage Initiated af2 21:12 EKG done. (by ED staff). Reviewed by Van Díaz DO. salty 21:13 Pt greeted and oriented to ED. Patient advised of names of staff involved in care, salty location of call sanchez, wait times and NPO status. Patient has correct armband on for positive identification. Placed in gown. Bed in low position. Call light in reach. Side rails up X2. magazine publisher on. Pulse ox on. NIBP on. 21:16 The patient / caregiver is instructed regarding the plan of care and ED course. af2 21:18 Patient visited by Magnolia Hernandez RN. af2 21:39 Patient moved to OBSERVATION cs11 22:16 [facility] Payment Agreement was scanned into [employer] and attached to record. zo 22:56 Patient visited by Magnolia Hernandez RN. af2 06/20 01:20 CT Chest Angio R/O PE Returned. EDMS 01:43 Patient visited by Magnolia Hernandez RN. af2 02:12 Patient visited by Magnolia Hernandez RN. af2 02:54 Patient visited by Alicia Langford PCA. salty 02:54 CARDIAC MARKER PANEL Sent. salty 02:54 EKG done. (by ED staff). Reviewed by Van Díaz DO. salty 03:19 Chest, 2 View (pa\E\lat) Returned. EDMS 03:34 Patient visited by Magnolia Hernandez RN. af2 03:50 Rodolfo Herndon is Referral Physician. cs11 03:55 Patient visited by Alicia Langford PCA. salty 04:05 No IV's were initiated during this patient's visit. No procedures done that require sls1 assistance. 12:41 T-Sheet-- Draft Copy was scanned into [employer] and attached to record. gb 12:41 ECG/EKG was scanned into [employer] and attached to record. gb 12:42 Radiology Report was scanned into [employer] and attached to record. gb 13:09 EKG-ADULT Returned. EDMS 13:09 ECG WITH READING ER PHYS Returned. EDMS Administered Medications: 06/19 21:45 Drug: Aspirin 324 mg [aspirin 81 mg chewable tablet (4 tabs)] Route: PO; af2 Order Results: Lab Order: CBC; SPEC'M 06/19/16 21:17 Test: WHITE BLOOD COUNT; Value: 8.7; Range: 4.0-10.0; Units: K/mm3; Status: F Test: RED BLOOD COUNT; Value: 4.48; Range: 4.00-5.40; Units: M/mm3; Status: F Test: HEMOGLOBIN; Value: 13.7; Range: 12.0-16.0; Units: g/dl; Status: F Test: HEMATOCRIT; Value: 41.4; Range: 36.0-47.0; Units: %; Status: F Test: MEAN CORPUSCULAR VOLUME; Value: 92.3; Range: 80.0-96.0; Units: fl; Status: F Test: MEAN CORPUSCULAR HEMOGLOBIN; Value: 30.6; Range: 27.0-33.0; Units: pg; Status: F Test: MEAN CORPUSCULAR HGB CONC; Value: 33.1; Range: 32.0-36.5; Units: g/dl; Status: F Test: RED CELL DISTRIBUTION WIDTH; Value: 12.3; Range: 11.5-14.5; Units: %; Status: F Test: PLATELET COUNT, AUTOMATED; Value: 198; Range: 150-450; Units: k/mm3; Status: F Lab Order: MED Profile; SPEC'M 06/19/16 21:17 Test: GLUCOSE, FASTING; Value: 93; Range: 83-110; Units: MG/DL; Status: F Test: BLOOD UREA NITROGEN; Value: 14; Range: 7-18; Units: MG/DL; Status: F Test: CREATININE FOR GFR; Value: 0.75; Range: 0.55-1.02; Units: MG/DL; Status: F Test: GLOMERULAR FILTRATION RATE; Value: > 60.0; Range: >39; Status: F Test: SODIUM LEVEL; Value: 143; Range: 136-145; Units: MEQ/L; Status: F Test: POTASSIUM SERUM; Value: 4.0; Range: 3.5-5.1; Units: MEQ/L; Status: F Test: CHLORIDE LEVEL; Value: 107; Range: 98-107; Units: MEQ/L; Status: F Test: CARBON DIOXIDE LEVEL; Value: 30; Range: 21-32; Units: MEQ/L; Status: F Test: ANION GAP; Value: 6; Range: 8-16; Abnormal: Below low normal; Units: MEQ/L; Status: F Test: CALCIUM LEVEL; Value: 8.6; Range: 8.8-10.2; Abnormal: Below low normal; Units: MG/DL; Status: F Test Note: ; Units are mL/min/1.73 m2 Chronic Kidney Disease Staging per NKF: Stage I & II GFR >=60 Normal to Mildly Decreased Stage III GFR 30-59 Moderately Decreased Stage IV GFR 15-29 Severely Decreased Stage V GFR <15 Very Little GFR Left ESRD GFR <15 on CUTCH CLEANER Lab Order: Cardiac Marker Panel; SPEC'M 06/19/16 21:17 Test: CPK CREATINE PHOSPHOKINASE; Value: 96; Range: 26-192; Units: U/L; Status: F Test: CK-MB VALUE MASS; Value: 2.3; Range: 0.0-3.6; Units: NG/ML; Status: F Test: MB/CK RELATIVE INDEX; Value: 2.39; Range: < OR =4; Status: F Test: TROPONIN I; Value: < 0.02; Range: < 0.10; Units: NG/ML; Status: F Test Note: ; DIAGNOSIS CRITERIA MMB ng/ml Relative Index (RI) NON-AMI < or = 5 N/A SUNG ZONE > 5 < or = 4 AMI > 5 > 4 Lab Order: Pt & Aptt; SPEC'M 06/19/16 21:17 Test: PROTHROMBIN TIME; Value: 12.6; Range: 12.3-14.5; Units: SECONDS; Status: F Test: INR; Value: 0.93; Status: F Test: PARTIAL THROMBOPLASTIN TIME; Value: 28.2; Range: 26.6-37.1; Units: SECONDS; Status: F Test Note: ; THERAPUTIC HUMAN INR VALUES INDICATIONS NORMAL RANGES PROPHYLAXIS/TREATMENT OF: VENOUS THROMBOSIS 2.0-3.0 PULMONARY EMBOLISM 2.0-3.0 PREVENTION OF SYSTEMIC EMBOLISM FROM: TISSUE HEART VALVES 2.0-3.0 ACUTE MYOCARDIAL INFARCTION 2.0-3.0 VALVULAR HEART DISEASE 2.0-3.0 ATRIAL FIBRILLATION 2.0-3.0 MECHANICAL VALVES(HIGH RISK) 2.5-3.5 RECURRENT MYOCARDIAL INFARCTION 2.5-3.5 Lab Order: CARDIAC MARKER PANEL; [facility]' 06/20/16 02:51 Test: CPK CREATINE PHOSPHOKINASE; Value: 76; Range: 26-192; Units: U/L; Status: F Test: CK-MB VALUE MASS; Value: 1.9; Range: 0.0-3.6; Units: NG/ML; Status: F Test: MB/CK RELATIVE INDEX; Value: 2.50; Range: < OR =4; Status: F Test: TROPONIN I; Value: < 0.02; Range: < 0.10; Units: NG/ML; Status: F Test Note: ; DIAGNOSIS CRITERIA MMB ng/ml Relative Index (RI) NON-AMI < or = 5 N/A SUNG ZONE > 5 < or = 4 AMI > 5 > 4 Radiology Order: EKG-ADULT Test: EKG-ADULT REASON FOR EXAMINATION: Chest Pain; Stationary ECG Study; [facility] - ED; ; Test Date: 2016-06-19; Pat Name: REMIGIO JOHNSON Department:; Room: -; Gender: F 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; : 1945 Requested By: VAN DÍAZ; Order Number: [id number] Reading MD: Nimisha Pittman; Measurements; Intervals [place]; Rate: 55 P: 48; CO: 164 QRS: 28; QRSD: 88 T: 34; QT: 421; QTc: 403; Interpretive Statements; SINUS BRADYCARDIA; MODERATE ST DEPRESSION; SIMILAR 05/26/16; Electronically Signed On 06-20-2016 12:56:18 EST by Nimisha Pittman; Radiology Order: Chest, 2 View (pa\E\lat) Test: Chest, 2 View (pa\E\lat) REASON FOR EXAMINATION: Chest Pain; Clinical: Acute chest pain .; ; Comparison: 05/25/2016 .; ; Technique: PA and lateral.; ; Findings:; The mediastinum and cardiac silhouette are normal. The lung [place] are; relatively clear and without acute consolidation, effusion, or pneumothorax. The; skeletal structures are intact and normal.; ; Impression:; 1. No acute cardiopulmonary process. Or focal consolidation appreciated.; ; ; Signed by; Tam Cunningham MD 06/20/2016 03:00 A; Radiology Order: CT Chest Angio R/O PE Test: CT Chest Angio R/O PE REASON FOR EXAMINATION: Chest Pain; ; CLINICAL HISTORY: Dyspnea, exclude PE.; TECHNIQUE: Multiple incremental axial, coronal and oblique images are obtained from the thoracic inle; t to the upper abdomen. Intravenous contrast material was administered as per pulmonary embolism prot; ocol.; COMMENTS:; There is excellent opacification of pulmonary arterial system without evidence for pulmonary embolism; . Aorta is of normal caliber without evidence for dissection or aneurysm.; There is no evidence of pleural or parenchymal mass. Mild pulmonary emphysema. There are no pleural e; ffusions. There is no evidence of hilar or mediastinal lymphadenopathy. The heart and great vessels a; re within normal limits.; Images of the upper abdomen demonstrate no evidence of adrenal mass.; The bony structures are free of lytic or blastic lesions. Multilevel degenerative changes are seen in; volving the visualized thoracolumbar spine.; Scattered calcifications are seen involving the aorta and major branches compatible with atherosclero; sis.; 2.6 cm well-defined hypodense lesion of the right hepatic lobe.; Small sliding hiatal hernia.; IMPRESSION:; No evidence for pulmonary embolism.; Mild pulmonary emphysema.; A well defined hypodense lesion of the right hepatic lobe.; Thank you for your kind referral of this patient.; ; Radiology Order: ECG WITH READING ER PHYS Test: ECG WITH READING ER PHYS REASON FOR EXAMINATION: CHEST PAIN; Stationary ECG Study; [facility] - ED; ; Test Date: 2016-06-20; Pat Name: REMIGIO JOHNSON Department:; Room: -; Gender: F 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 cs11 04:05 Discharge Assessment: Patient awake, alert and oriented x 3. No cognitive and/or sls1 functional deficits noted. Patient verbalized understanding of disposition instructions. patient administered narcotics - no. The following High Risk Discharge criteria are identified: None. Discharged to home ambulatory. Condition: stable. CT Study completed. Property :Personal belongings accompany Pt. 04:06 Patient left the ED. sls1 Signatures: Dispatcher [employer] EDMS Rupesh Carver, BERTA RN Leslie Martínez, Roque Reg Radha Vickers Destiny, COAL TRAMMER COAL TRAMMER Jen Lopez RN RN sls1 Van Díaz, DO cs11 Rosa Maria Bertrand, COAL TRAMMER COAL TRAMMER Magnolia MayrRN RN af2 Chart Complete MTDD
== END 2016-06-20 04:06 | disposition home or self-care (01) ==
LOC: M ED 21:03
DX: R07.9 Chest pain, unspecified (principal); I10 Essential (primary) hypertension; I48.91 Unspecified atrial fibrillation; J45.909 Unspecified asthma, uncomplicated; Z79.899 Other long term (current) drug therapy; Z79.82 Long term (current) use of aspirin; Z88.0 Allergy status to penicillin; Z88.1 Allergy status to other antibiotic agents; Z88.2 Allergy status to sulfonamides; Z88.5 Allergy status to narcotic agent; Z88.6 Allergy status to analgesic agent; Z88.8 Allergy status to other drugs, medicaments and biological substances; Z87.891 Personal history of nicotine dependence
CPT/HCPCS: 36415; 71020; 71275; 80048; 82550; 82553; 84484; 85027; 85610; 85730; 93005; 99285; Q9967

== ENCOUNTER 2016-06-27 09:58 | Emergency (ER) | payer OTHER, MEDICARE, BC ==
--- NOTE | 2016-06-27 11:54 | EDDOCDS ---
Physician Documentation [facility] Name: Gaby Johnson Age: 71 yrs Sex: Female : 1945 Arrival Date: 06/27/2016 Time: 09:58 Bed TR8 Private MD: Ally Sotelo L. Disposition: 06/27/16 11:07 Discharged to Home/Self Care. Impression: Strain of muscle and tendon of back wall of thorax. - Condition is Stable. - Discharge Instructions: Muscle Strain. - Prescriptions for Cyclobenzaprine 5 mg Oral Tablet - take 1 tablet by ORAL route 3 times per day As needed; 15 tablet. - Medication Reconciliation, Local Pharmacy Hours, Work Release Form - 3 day form. - Follow up: Ally Sotelo; When: As previously arranged; Reason: Recheck today's complaints, Continuance of care. Follow up: Alirio Viramontes; When: As needed; Reason: Recheck today's complaints. - Problem is new. - Symptoms are unchanged. - Notes: avoid ibuprofen, naproxen or other NSAIDS because of the blood thinners you are taking. Historical: - Allergies: Avelox (CHRISTENSEN); CEPHALOSPORINS; Ciprofloxacin (Swelling); Codeine Sulfate (Unknown); Crestor (hallucinations); Lipitor (hallucinations); Nitrofurantoin Macrocrystal (body aches); Novocain (heart races); Oxycodone-Acetaminophen; PENICILLINS; pravastatin (Anaphylaxis); SULFA (SULFONAMIDES) (Unknown); - Home Meds: 1. aspirin 81 mg Oral TbEC 1 tab twice a day 2. atenolol 25 mg Oral tab 0.5 tab 2 times per day 3. PreserVision Lutein 226-200-5-0.8 ek-kacg-hn-mg oral cap 4. Vitamin D3 1,000 unit oral chew 5. Tylenol 325 mg Oral tab 2 tabs every 4-6 hours (Last dose: 06/26/2016 08:00) 6. docusate sodium 100 mg Oral cap 1 cap once daily 7. amlodipine 10 mg Oral tab 1 tab once daily 8. nizatidine 150 mg oral cap 1 cap 2 times per day 9. Eliquis 5 mg oral tab 1 tab 2 times per day has not started taking it - PMHx: Asthma; Atrial Fib; Hypertension; - PSHx: Hysterectomy; Appendectomy; right foot; - Social history: Smoking status: Patient states former smoker of tobacco. No barriers to communication noted, The patient speaks fluent Setswana, Speaks appropriately for age. - Family history: Not pertinent. - : The pt / caregiver states he / she is not on anticoagulants. Home medication list is obtained from the patient. - Exposure Risk Screening:: None identified. Vital Signs: 06/27 10:01 BP 138 / 68 RA Sitting (auto/reg); Pulse 59; Resp 18; Temp 96.5(O); Pulse Ox 100% ; jrd Weight 65.77 kg / 145 lbs; Height 5 ft. 3 in. (160.02 cm); Pain 9/10; 11:25 BP 133 / 84; Pulse 62; Resp 18; Pulse Ox 98% on R/A; Pain 2/10; ml6 10:01 Body Mass Index 25.69 (65.77 kg, 160.02 cm) jrd MDM: 11:39 Financial registration complete. lg 11:40 [facility] Payment Agreement was scanned into [employer] and attached to record. [id number] Signatures: John Stevens, Reg Reg lg Nestor Emery, LIZZIE SAMUEL ar2 Justin Andrade RN RN ml6 Tracy Stephenson RN RN hs1 Reese Becerra mm15 The chart was reviewed and I authenticate all verbal orders and agree with the evaluation and treatment provided.Attachments: 11:40 [facility] Payment Agreement mm15 MTDD
--- NOTE | 2016-06-27 11:54 | EDDOCDS ---
Nurse's Notes [facility] Name: Gaby Johnson Age: 71 yrs Sex: Female : 1945 Arrival Date: 06/27/2016 Time: 09:58 Bed TR8 Private MD: Ally Sotelo L. Diagnosis: Strain of muscle and tendon of back wall of thorax Presentation: 06/27 10:06 Presenting complaint: Patient states: patient was working at the [employer] and hs1 patient pulled on a clothing rack and then her back started hurting. Patient reports pain between shoulder blades and describes pain as burning. Acute neurological deficits are not present. Mechanism of Injury: pulling. Adult Sepsis Screening: The patient does not have new or worsening altered mentation. Patient's respiratory rate is less than 22. Systolic blood pressure is greater than 100. Patient has a qSOFA score of 0- Negative Sepsis Screen. Suicide/Homicide risk assessment- the patient denies having any suicidal and/or homicidal ideations and does not present with any other emotional, behavioral or mental health complaints. 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 Transition of care: patient was not received from another setting of care. 10:06 Acuity: LUCIAN Level 4 hs1 10:06 Method Of Arrival: Walkin/Carried/Asstd hs1 Triage Assessment: 10:13 General: Appears in no apparent distress, Behavior is appropriate for age, cooperative. hs1 Pain: Location: thoracic area Pain currently is 7 out of 10 on a pain scale. Quality of pain is described as aching. Musculoskeletal: Reports Pain is 7 out of 10 on a pain scale. Historical: - Allergies: Avelox (CHRISTENSEN); CEPHALOSPORINS; Ciprofloxacin (Swelling); Codeine Sulfate (Unknown); Crestor (hallucinations); Lipitor (hallucinations); Nitrofurantoin Macrocrystal (body aches); Novocain (heart races); Oxycodone-Acetaminophen; PENICILLINS; pravastatin (Anaphylaxis); SULFA (SULFONAMIDES) (Unknown); - Home Meds: 1. aspirin 81 mg Oral TbEC 1 tab twice a day 2. atenolol 25 mg Oral tab 0.5 tab 2 times per day 3. PreserVision Lutein 226-200-5-0.8 ah-zbyx-lj-mg oral cap 4. Vitamin D3 1,000 unit oral chew 5. Tylenol 325 mg Oral tab 2 tabs every 4-6 hours (Last dose: 06/26/2016 08:00) 6. docusate sodium 100 mg Oral cap 1 cap once daily 7. amlodipine 10 mg Oral tab 1 tab once daily 8. nizatidine 150 mg oral cap 1 cap 2 times per day 9. Eliquis 5 mg oral tab 1 tab 2 times per day has not started taking it - PMHx: Asthma; Atrial Fib; Hypertension; - PSHx: Hysterectomy; Appendectomy; right foot; - Social history: Smoking status: Patient states former smoker of tobacco. No barriers to communication noted, The patient speaks fluent Sudanese, Speaks appropriately for age. - Family history: Not pertinent. - : The pt / caregiver states he / she is not on anticoagulants. Home medication list is obtained from the patient. - Exposure Risk Screening:: None identified. Screenin:14 Screening information is obtained from the patient. Fall risk: No risks identified. hs1 Assistance ADL's: requires no assistance with activities of daily living. Abuse/DV Screen: The patient / caregiver reports he/she is: not in a situation that causes fear, pain or injury. Nutritional screening: No deficits noted. Advance Directives: There is no active DNR order. home support is adequate. Assessment: 11:25 General: Appears in no apparent distress, Behavior is appropriate for age, cooperative. ml6 Pain: Denies pain. Neurological: No deficits noted. Level of Consciousness is awake, alert, Oriented to person, place, time. Cardiovascular: No deficits noted. Capillary refill < 3 seconds is brisk in bilateral fingers toes. Respiratory: No deficits noted. Airway is patent Respiratory effort is even, unlabored, Respiratory pattern is regular, symmetrical, Breath sounds are clear bilaterally. GI: No deficits noted. Vital Signs: 10:01 BP 138 / 68 RA Sitting (auto/reg); Pulse 59; Resp 18; Temp 96.5(O); Pulse Ox 100% ; jrd Weight 65.77 kg; Height 5 ft. 3 in. (160.02 cm); Pain 9/10; 11:25 BP 133 / 84; Pulse 62; Resp 18; Pulse Ox 98% on R/A; Pain 2/10; ml6 10:01 Body Mass Index 25.69 (65.77 kg, 160.02 cm) d Vitals: 10:01 Log In Time: June 27, 2016 at 09:55. jrd ED Course: 09:59 Patient visited by Wang Felder PCA. jrd 09:59 Patient moved to Waiting jrd 10:00 Ally Sotelo is Private Physician. jrd 10:02 Patient visited by Wang Felder PCA. jrd 10:02 Patient moved to Pre RCE jrd 10:09 Triage Initiated hs1 10:25 Patient moved to Triage 2 hs1 10:29 Nestor Emery PA-C is PHCP. ar2 10:29 Faisal Bustamante MD is Attending Physician. ar2 10:47 Patient visited by Nestor Emery PA-C. ar2 11:06 Ally Sotelo is Referral Physician. ar2 11:06 Alirio Viramontes is Referral Physician. ar2 11:30 Patient moved to TR8 ml6 11:40 [facility] Payment Agreement was scanned into [employer] and attached to record. mm15 11:52 The patient / caregiver is instructed regarding the plan of care and ED course. ml6 11:52 No IV's were initiated during this patient's visit. No procedures done that require ml6 assistance. Order Results: There are currently no results for this order. Outcome: 11:07 Discharge ordered by Provider. ar2 11:52 Discharge Assessment: patient administered narcotics - no. The following High Risk ml6 Discharge criteria are identified: None. Discharged to home ambulatory. Condition: improved. Discharge instructions given to patient, Instructed on discharge instructions, follow up and referral plans. medication usage, no driving heavy equipment, Demonstrated understanding of instructions, medications, Prescriptions given X 1, Work note provided to patient. No special radiology studies were completed. Property sent home with patient. :Personal belongings accompany Pt. 11:53 Patient left the ED. ml6 Signatures: Nestor Emery PA-C PA-C ar2 Justin Andrade RN RN ml6 Tracy Stephenson RN RN hs1 Reese Becerra mm15 Wang Felder PCA PCA jrd MTDD
--- NOTE | 2016-06-29 12:54 | EDDOCDS ---
Physician Documentation [facility] Name: Gaby Johnson Age: 71 yrs Sex: Female : 1945 Arrival Date: 06/27/2016 Time: 09:58 Bed TR8 Private MD: Ally Sotelo L. Disposition: 06/27/16 11:07 Discharged to Home/Self Care. Impression: Strain of muscle and tendon of back wall of thorax. - Condition is Stable. - Discharge Instructions: Muscle Strain. - Prescriptions for Cyclobenzaprine 5 mg Oral Tablet - take 1 tablet by ORAL route 3 times per day As needed; 15 tablet. - Medication Reconciliation, Local Pharmacy Hours, Work Release Form - 3 day form. - Follow up: Ally Sotelo; When: As previously arranged; Reason: Recheck today's complaints, Continuance of care. Follow up: Alirio Viramontes; When: As needed; Reason: Recheck today's complaints. - Problem is new. - Symptoms are unchanged. - Notes: avoid ibuprofen, naproxen or other NSAIDS because of the blood thinners you are taking. Historical: - Allergies: Avelox (CHRISTENSEN); CEPHALOSPORINS; Ciprofloxacin (Swelling); Codeine Sulfate (Unknown); Crestor (hallucinations); Lipitor (hallucinations); Nitrofurantoin Macrocrystal (body aches); Novocain (heart races); Oxycodone-Acetaminophen; PENICILLINS; pravastatin (Anaphylaxis); SULFA (SULFONAMIDES) (Unknown); - Home Meds: 1. aspirin 81 mg Oral TbEC 1 tab twice a day 2. atenolol 25 mg Oral tab 0.5 tab 2 times per day 3. PreserVision Lutein 226-200-5-0.8 tv-ivbg-wn-mg oral cap 4. Vitamin D3 1,000 unit oral chew 5. Tylenol 325 mg Oral tab 2 tabs every 4-6 hours (Last dose: 06/26/2016 08:00) 6. docusate sodium 100 mg Oral cap 1 cap once daily 7. amlodipine 10 mg Oral tab 1 tab once daily 8. nizatidine 150 mg oral cap 1 cap 2 times per day 9. Eliquis 5 mg oral tab 1 tab 2 times per day has not started taking it - PMHx: Asthma; Atrial Fib; Hypertension; - PSHx: Hysterectomy; Appendectomy; right foot; - Social history: Smoking status: Patient states former smoker of tobacco. No barriers to communication noted, The patient speaks fluent German, Speaks appropriately for age. - Family history: Not pertinent. - : The pt / caregiver states he / she is not on anticoagulants. Home medication list is obtained from the patient. - Exposure Risk Screening:: None identified. Vital Signs: 06/27 10:01 BP 138 / 68 RA Sitting (auto/reg); Pulse 59; Resp 18; Temp 96.5(O); Pulse Ox 100% ; jrd Weight 65.77 kg / 145 lbs; Height 5 ft. 3 in. (160.02 cm); Pain 9/10; 11:25 BP 133 / 84; Pulse 62; Resp 18; Pulse Ox 98% on R/A; Pain 2/10; ml6 10:01 Body Mass Index 25.69 (65.77 kg, 160.02 cm) jrd MDM: 11:39 Financial registration complete. lg 11:40 [facility] Payment Agreement was scanned into [employer] and attached to record. mm15 14:26 T-Sheet-- Draft Copy was scanned into [employer] and attached to record. gb Signatures: Leslie Roblero, Reg Reg gb John Stevens, Reg Reg lg Nestor Emery PA-C PA-C ar2 Justin Andrade, RN RN ml6 Tracy Stephenson RN RN hs1 Reese Becerra mm15 The chart was reviewed and I authenticate all verbal orders and agree with the evaluation and treatment provided.Attachments: 11:40 [facility] Payment Agreement mm15 14:26 T-Sheet-- Draft Copy gb Chart Complete MTDD
--- NOTE | 2016-06-29 12:54 | EDDOCDS ---
Nurse's Notes [facility] Name: Gaby Johnson Age: 71 yrs Sex: Female : 1945 Arrival Date: 06/27/2016 Time: 09:58 Bed TR8 Private MD: Ally Sotelo L. Diagnosis: Strain of muscle and tendon of back wall of thorax Presentation: 06/27 10:06 Presenting complaint: Patient states: patient was working at the [employer] and hs1 patient pulled on a clothing rack and then her back started hurting. Patient reports pain between shoulder blades and describes pain as burning. Acute neurological deficits are not present. Mechanism of Injury: pulling. Adult Sepsis Screening: The patient does not have new or worsening altered mentation. Patient's respiratory rate is less than 22. Systolic blood pressure is greater than 100. Patient has a qSOFA score of 0- Negative Sepsis Screen. Suicide/Homicide risk assessment- the patient denies having any suicidal and/or homicidal ideations and does not present with any other emotional, behavioral or mental health complaints. 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 Transition of care: patient was not received from another setting of care. 10:06 Acuity: LUCIAN Level 4 hs1 10:06 Method Of Arrival: Walkin/Carried/Asstd hs1 Triage Assessment: 10:13 General: Appears in no apparent distress, Behavior is appropriate for age, cooperative. hs1 Pain: Location: thoracic area Pain currently is 7 out of 10 on a pain scale. Quality of pain is described as aching. Musculoskeletal: Reports Pain is 7 out of 10 on a pain scale. Historical: - Allergies: Avelox (CHRISTENSEN); CEPHALOSPORINS; Ciprofloxacin (Swelling); Codeine Sulfate (Unknown); Crestor (hallucinations); Lipitor (hallucinations); Nitrofurantoin Macrocrystal (body aches); Novocain (heart races); Oxycodone-Acetaminophen; PENICILLINS; pravastatin (Anaphylaxis); SULFA (SULFONAMIDES) (Unknown); - Home Meds: 1. aspirin 81 mg Oral TbEC 1 tab twice a day 2. atenolol 25 mg Oral tab 0.5 tab 2 times per day 3. PreserVision Lutein 226-200-5-0.8 se-utbg-kc-mg oral cap 4. Vitamin D3 1,000 unit oral chew 5. Tylenol 325 mg Oral tab 2 tabs every 4-6 hours (Last dose: 06/26/2016 08:00) 6. docusate sodium 100 mg Oral cap 1 cap once daily 7. amlodipine 10 mg Oral tab 1 tab once daily 8. nizatidine 150 mg oral cap 1 cap 2 times per day 9. Eliquis 5 mg oral tab 1 tab 2 times per day has not started taking it - PMHx: Asthma; Atrial Fib; Hypertension; - PSHx: Hysterectomy; Appendectomy; right foot; - Social history: Smoking status: Patient states former smoker of tobacco. No barriers to communication noted, The patient speaks fluent Tuvaluan, Speaks appropriately for age. - Family history: Not pertinent. - : The pt / caregiver states he / she is not on anticoagulants. Home medication list is obtained from the patient. - Exposure Risk Screening:: None identified. Screenin:14 Screening information is obtained from the patient. Fall risk: No risks identified. hs1 Assistance ADL's: requires no assistance with activities of daily living. Abuse/DV Screen: The patient / caregiver reports he/she is: not in a situation that causes fear, pain or injury. Nutritional screening: No deficits noted. Advance Directives: There is no active DNR order. home support is adequate. Assessment: 11:25 General: Appears in no apparent distress, Behavior is appropriate for age, cooperative. ml6 Pain: Denies pain. Neurological: No deficits noted. Level of Consciousness is awake, alert, Oriented to person, place, time. Cardiovascular: No deficits noted. Capillary refill < 3 seconds is brisk in bilateral fingers toes. Respiratory: No deficits noted. Airway is patent Respiratory effort is even, unlabored, Respiratory pattern is regular, symmetrical, Breath sounds are clear bilaterally. GI: No deficits noted. Vital Signs: 10:01 BP 138 / 68 RA Sitting (auto/reg); Pulse 59; Resp 18; Temp 96.5(O); Pulse Ox 100% ; jrd Weight 65.77 kg; Height 5 ft. 3 in. (160.02 cm); Pain 9/10; 11:25 BP 133 / 84; Pulse 62; Resp 18; Pulse Ox 98% on R/A; Pain 2/10; ml6 10:01 Body Mass Index 25.69 (65.77 kg, 160.02 cm) [facility] Vitals: 10:01 Log In Time: June 27, 2016 at 09:55. jrd ED Course: 09:59 Patient visited by Wang Felder PCA. jrd 09:59 Patient moved to Waiting jrd 10:00 Ally Sotelo is Private Physician. jrd 10:02 Patient visited by Wang Felder PCA. jrd 10:02 Patient moved to Pre RCE jrd 10:09 Triage Initiated hs1 10:25 Patient moved to Triage 2 hs1 10:29 Nestor Emery PA-C is PHCP. ar2 10:29 Faisal Bustamante MD is Attending Physician. ar2 10:47 Patient visited by Nestor Emery PA-C. ar2 11:06 Ally Sotelo is Referral Physician. ar2 11:06 Alirio Viramontes is Referral Physician. ar2 11:30 Patient moved to TR8 ml6 11:40 [facility] Payment Agreement was scanned into [employer] and attached to record. mm15 11:52 The patient / caregiver is instructed regarding the plan of care and ED course. ml6 11:52 No IV's were initiated during this patient's visit. No procedures done that require ml6 assistance. 14:26 T-Sheet-- Draft Copy was scanned into [employer] and attached to record. gb Order Results: There are currently no results for this order. Outcome: 11:07 Discharge ordered by Provider. ar2 11:52 Discharge Assessment: patient administered narcotics - no. The following High Risk ml6 Discharge criteria are identified: None. Discharged to home ambulatory. Condition: improved. Discharge instructions given to patient, Instructed on discharge instructions, follow up and referral plans. medication usage, no driving heavy equipment, Demonstrated understanding of instructions, medications, Prescriptions given X 1, Work note provided to patient. No special radiology studies were completed. Property sent home with patient. :Personal belongings accompany Pt. 11:53 Patient left the ED. ml6 Signatures: Leslie Roblero, Reg Reg gb Nestor Emery PA-C PA-C ar2 Justin Andrade RN RN ml6 Tracy Stephenson RN RN hs1 Reese Becerra mm15 Bradford, Wang, TECHNICAL COMMUNICATION TEACHER TECHNICAL COMMUNICATION TEACHER jrd Chart Complete MTDD
--- NOTE | 2016-06-29 12:54 | EDDOCDS ---
Physician Documentation [facility] Name: Gaby Johnson Age: 71 yrs Sex: Female : 1945 Arrival Date: 06/27/2016 Time: 09:58 Bed TR8 Private MD: Ally Sotelo L. Disposition: 06/27/16 11:07 Discharged to Home/Self Care. Impression: Strain of muscle and tendon of back wall of thorax. - Condition is Stable. - Discharge Instructions: Muscle Strain. - Prescriptions for Cyclobenzaprine 5 mg Oral Tablet - take 1 tablet by ORAL route 3 times per day As needed; 15 tablet. - Medication Reconciliation, Local Pharmacy Hours, Work Release Form - 3 day form. - Follow up: Ally Sotelo; When: As previously arranged; Reason: Recheck today's complaints, Continuance of care. Follow up: Alirio Viramontes; When: As needed; Reason: Recheck today's complaints. - Problem is new. - Symptoms are unchanged. - Notes: avoid ibuprofen, naproxen or other NSAIDS because of the blood thinners you are taking. Historical: - Allergies: Avelox (CHRISTENSEN); CEPHALOSPORINS; Ciprofloxacin (Swelling); Codeine Sulfate (Unknown); Crestor (hallucinations); Lipitor (hallucinations); Nitrofurantoin Macrocrystal (body aches); Novocain (heart races); Oxycodone-Acetaminophen; PENICILLINS; pravastatin (Anaphylaxis); SULFA (SULFONAMIDES) (Unknown); - Home Meds: 1. aspirin 81 mg Oral TbEC 1 tab twice a day 2. atenolol 25 mg Oral tab 0.5 tab 2 times per day 3. PreserVision Lutein 226-200-5-0.8 ke-zklc-lp-mg oral cap 4. Vitamin D3 1,000 unit oral chew 5. Tylenol 325 mg Oral tab 2 tabs every 4-6 hours (Last dose: 06/26/2016 08:00) 6. docusate sodium 100 mg Oral cap 1 cap once daily 7. amlodipine 10 mg Oral tab 1 tab once daily 8. nizatidine 150 mg oral cap 1 cap 2 times per day 9. Eliquis 5 mg oral tab 1 tab 2 times per day has not started taking it - PMHx: Asthma; Atrial Fib; Hypertension; - PSHx: Hysterectomy; Appendectomy; right foot; - Social history: Smoking status: Patient states former smoker of tobacco. No barriers to communication noted, The patient speaks fluent Hebrew, Speaks appropriately for age. - Family history: Not pertinent. - : The pt / caregiver states he / she is not on anticoagulants. Home medication list is obtained from the patient. - Exposure Risk Screening:: None identified. Vital Signs: 06/27 10:01 BP 138 / 68 RA Sitting (auto/reg); Pulse 59; Resp 18; Temp 96.5(O); Pulse Ox 100% ; jrd Weight 65.77 kg / 145 lbs; Height 5 ft. 3 in. (160.02 cm); Pain 9/10; 11:25 BP 133 / 84; Pulse 62; Resp 18; Pulse Ox 98% on R/A; Pain 2/10; ml6 10:01 Body Mass Index 25.69 (65.77 kg, 160.02 cm) jrd MDM: 11:39 Financial registration complete. lg 11:40 [facility] Payment Agreement was scanned into [employer] and attached to record. mm15 14:26 T-Sheet-- Draft Copy was scanned into [employer] and attached to record. gb Signatures: Leslie Roblero, Reg Reg gb John Stevens, Reg Reg lg Nestor Emery PA-C PA-C ar2 Justin Andrade, RN RN ml6 Tracy Stephenson RN RN hs1 Reese Becerra mm15 The chart was reviewed and I authenticate all verbal orders and agree with the evaluation and treatment provided.Attachments: 11:40 [facility] Payment Agreement mm15 14:26 T-Sheet-- Draft Copy gb Chart Complete MTDD
== END 2016-06-27 11:53 | disposition home or self-care (01) ==
LOC: M ED 09:58
DX: S29.012A Strain of muscle and tendon of back wall of thorax, initial encounter (principal); X58.XXXA Exposure to other specified factors, initial encounter; Y92.89 Other specified places as the place of occurrence of the external cause; Y93.89 Activity, other specified; Y99.0 Civilian activity done for income or pay; I10 Essential (primary) hypertension; I48.91 Unspecified atrial fibrillation; J45.909 Unspecified asthma, uncomplicated; Z90.79 Acquired absence of other genital organ(s); Z90.89 Acquired absence of other organs; Z87.891 Personal history of nicotine dependence; Z79.01 Long term (current) use of anticoagulants; Z79.82 Long term (current) use of aspirin; Z79.899 Other long term (current) drug therapy; Z88.0 Allergy status to penicillin; Z88.1 Allergy status to other antibiotic agents; Z88.2 Allergy status to sulfonamides; Z88.5 Allergy status to narcotic agent; Z88.4 Allergy status to anesthetic agent; Z88.8 Allergy status to other drugs, medicaments and biological substances

== ENCOUNTER 2016-06-30 09:08 | Emergency (ER) | payer OTHER, MEDICARE, BC ==
--- NOTE | 2016-06-30 10:14 | REP ---
THORACIC SPINE, THREE VIEWS: HISTORY: Back pain. There is no acute fracture or subluxation. There is loss of height of several mid and lower thoracic intervertebral discs. Osteophytes are present in the mid and lower thoracic spine. 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 The bony structures is osteopenic. IMPRESSION: Degenerative change as described above. Signed by Kade Grijalva MD 06/30/2016 10:19 A
--- NOTE | 2016-06-30 10:31 | EDDOCDS ---
Nurse's Notes [facility] Name: Gaby Johnson Age: 71 yrs Sex: Female : 1945 Arrival Date: 06/30/2016 Time: 09:08 Bed PR Private MD: Ally Sotelo L. Diagnosis: Strain of muscle and tendon of back wall of bbnnyp-vnmzgua-P/C Presentation: 06/30 09:18 Presenting complaint: Patient states: Continued mid back pain since injuring it about 4 dwg days ago, seen here 06/27/16 for same, has not taken any of the prescribed Flexeril. Acute neurological deficits are not present. Mechanism of Injury: Pulling motion. Adult Sepsis Screening: The patient does not have new or worsening altered mentation. Patient's respiratory rate is less than 22. Systolic blood pressure is greater than 100. Patient has a qSOFA score of 0- Negative Sepsis Screen. Suicide/Homicide risk assessment- the patient denies having any suicidal and/or homicidal ideations and does not present with any other emotional, behavioral or mental health complaints. Status: Patient is not a cashier self service gasoline or dependent. Transition of care: patient was not received from another setting of care. 09:18 Acuity: LUCIAN Level 5 dwg 09:18 Method Of Arrival: Walkin/Carried/Asstd dwg Triage Assessment: 09:23 General: Appears in no apparent distress. Pain: Pain currently is 7 out of 10 on a pain dwg scale. Historical: - Allergies: Avelox (CHRISTENSEN); CEPHALOSPORINS; Ciprofloxacin (Swelling); Codeine Sulfate (Unknown); Crestor (hallucinations); Lipitor (hallucinations); Nitrofurantoin Macrocrystal (body aches); Novocain (heart races); Oxycodone-Acetaminophen; PENICILLINS; pravastatin (Anaphylaxis); SULFA (SULFONAMIDES) (Unknown); - Home Meds: 1. amlodipine 10 mg Oral tab 1 tab once daily (Last dose: 06/30/2016) 2. atenolol 25 mg Oral tab 0.5 tab 2 times per day (Last dose: 06/30/2016) 3. docusate sodium 100 mg Oral cap 1 cap once daily (Last dose: 06/30/2016) 4. Eliquis 5 mg oral tab 1 tab 2 times per day has not started taking it (Last dose: 06/30/2016) 5. Vitamin D3 1,000 unit oral chew daily (Last dose: 06/30/2016) 6. nizatidine 150 mg oral cap 1 cap 2 times per day (Last dose: 06/30/2016) - PMHx: Asthma; Atrial Fib; Hypertension; - PSHx: Appendectomy; ; Hysterectomy; - Social history: Smoking status: Patient states former smoker of tobacco. No barriers to communication noted, The patient speaks fluent Marshallese. - Family history: Not pertinent. - : The pt / caregiver states he / she is on anticoagulants: Eliquis Home medication list is obtained from the patient. - Exposure Risk Screening:: None identified. Screenin:52 Screening information is obtained from the patient. Fall risk: No risks identified. dwg Assistance ADL's: requires no assistance with activities of daily living. Abuse/DV Screen: The patient / caregiver reports he/she is: not in a situation that causes fear, pain or injury. Nutritional screening: No deficits noted. Advance Directives: Currently, there is no health care proxy. There is no active DNR order. There is no living will. There is no Power of Paint Process Engineer. Advance directive information has not previously been placed in an [facility] medical record. Further advance directive information is declined. home support is adequate. Assessment: 09:51 General: Appears in no apparent distress, Behavior is cooperative, pleasant. Pain: Pain dwg currently is 6 out of 10 on a pain scale. Neurological: Level of Consciousness is awake, alert, Oriented to person, place, time, Real Estate Utilization Officer are equal bilaterally Gait is steady. Respiratory: Airway is patent Respiratory effort is even, unlabored, Respiratory pattern is regular, symmetrical, Breath sounds are clear bilaterally. Musculoskeletal: Slight abrasion noted to mid back. 09:55 General: To radiology. dwg Vital Signs: 09:12 BP 164 / 80; Pulse 57; Resp 20; Temp 96.8(O); Pulse Ox 100% on R/A; Weight 65.77 kg elp (R); Height 5 ft. 3 in. (160.02 cm) (R); Pain 8/10; 10:28 BP 145 / 68; Pulse 62; Resp 20; Temp 97.1(T); Pulse Ox 99% on R/A; dwg 09:12 Body Mass Index 25.69 (65.77 kg, 160.02 cm) [facility] Vitals: 09:12 Log In Time: June 30, 2016 at 09:10. [facility] ED Course: 09:10 Patient visited by Rosa Maria Bertrand PCA. elp 09:10 Ally Sotelo is Private Physician. elp 09:10 Patient moved to Waiting elp 09:12 Patient visited by Rosa Maria Bertrand PCA. elp 09:12 Patient moved to Pre RCE elp 09:20 Triage Initiated dwg 09:23 [facility] cc[facility] 09:23 Nimisha Pittman MD is Attending Physician. cc10 09:24 Patient moved to Triage 3 dwg 09:25 Patient visited by Perez Alarcon PA-C. cc10 09:25 Patient visited by Perez Alarcon PA-C. cc10 09:54 Patient moved to TR2 dwg 09:55 Patient visited by Reilly Tamayo RN. dwg 09:55 Patient moved to Radiology 4 09:59 Patient moved to TR2 4 10:10 Patient moved to PR1 / 25 [facility] 10:22 Ally Sotelo is Referral Physician. cc10 10:29 The patient / caregiver is instructed regarding the plan of care and ED course. dwg 10:29 No IV's were initiated during this patient's visit. No procedures done that require dwg assistance. 10:30 Patient visited by Reilly Tamayo RN. dwg Order Results: There are currently no results for this order. Outcome: 10:22 Discharge ordered by Provider. cc10 10:29 Discharge Assessment: Patient awake, alert and oriented x 3. No cognitive and/or dwg functional deficits noted. Patient verbalized understanding of disposition instructions. patient administered narcotics - no. The following High Risk Discharge criteria are identified: None. Discharged to home ambulatory. Condition: good Condition: stable Condition: unchanged. No special radiology studies were completed. Property sent home with patient. 10:30 Patient left the ED. dwg Signatures: Reilly Tamayo RN RN Юлия Iglesias RN RN [place] [id number] Rosa Maria Bertrand PCA PUBLIC HEALTH VETERINARIAN elp [place], Perez, PA-C PA-C cc10 MTDD
--- NOTE | 2016-06-30 10:31 | EDDOCDS ---
Physician Documentation [facility] Name: Gaby Johnson Age: 71 yrs Sex: Female : 1945 Arrival Date: 06/30/2016 Time: 09:08 Bed PR Private MD: Ally Sotelo L. Disposition: 06/30/16 10:22 Discharged to Home/Self Care. Impression: Strain of muscle and tendon of back wall of thorax - recheck-W/C. - Condition is Stable. - Discharge Instructions: Muscle Strain. - Medication Reconciliation, Work Release Form - 3 day form. - Follow up: Ally Sotelo; When: Call to arrange an appointment; Reason: Wound/Symptom Recheck, Recheck today's complaints, Worsening of conditions, Continuance of care. - Problem is an ongoing problem. - Symptoms are unchanged. 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 Historical: - Allergies: Avelox (CHRISTENSEN); CEPHALOSPORINS; Ciprofloxacin (Swelling); Codeine Sulfate (Unknown); Crestor (hallucinations); Lipitor (hallucinations); Nitrofurantoin Macrocrystal (body aches); Novocain (heart races); Oxycodone-Acetaminophen; PENICILLINS; pravastatin (Anaphylaxis); SULFA (SULFONAMIDES) (Unknown); - Home Meds: 1. amlodipine 10 mg Oral tab 1 tab once daily (Last dose: 06/30/2016) 2. atenolol 25 mg Oral tab 0.5 tab 2 times per day (Last dose: 06/30/2016) 3. docusate sodium 100 mg Oral cap 1 cap once daily (Last dose: 06/30/2016) 4. Eliquis 5 mg oral tab 1 tab 2 times per day has not started taking it (Last dose: 06/30/2016) 5. Vitamin D3 1,000 unit oral chew daily (Last dose: 06/30/2016) 6. nizatidine 150 mg oral cap 1 cap 2 times per day (Last dose: 06/30/2016) - PMHx: Asthma; Atrial Fib; Hypertension; - PSHx: Appendectomy; ; Hysterectomy; - Social history: Smoking status: Patient states former smoker of tobacco. No barriers to communication noted, The patient speaks fluent Jordanian. - Family history: Not pertinent. - : The pt / caregiver states he / she is on anticoagulants: Eliquis Home medication list is obtained from the patient. - Exposure Risk Screening:: None identified. Vital Signs: 06/30 09:12 BP 164 / 80; Pulse 57; Resp 20; Temp 96.8(O); Pulse Ox 100% on R/A; Weight 65.77 kg / elp 145 lbs (R); Height 5 ft. 3 in. (160.02 cm) (R); Pain 8/10; 10:28 BP 145 / 68; Pulse 62; Resp 20; Temp 97.1(T); Pulse Ox 99% on R/A; dwg 09:12 Body Mass Index 25.69 (65.77 kg, 160.02 cm) elp MDM: 09:29 Spine, Thoracic 3 Views Ordered. EDMS 09:44 Financial registration complete. lg Signatures: Dispatcher [employer] Reilly Pena RN RN John Fields Reg Reg Perez Alarcon PA-C PARhiannon cc10 MARKD
--- NOTE | 2016-07-02 11:31 | EDDOCDS ---
Physician Documentation [facility] Name: Gaby Johnson Age: 71 yrs Sex: Female : 1945 Arrival Date: 06/30/2016 Time: 09:08 Bed PR Private MD: Ally Sotelo L. Disposition: 06/30/16 10:22 Discharged to Home/Self Care. Impression: Strain of muscle and tendon of back wall of thorax - recheck-W/C. - Condition is Stable. - Discharge Instructions: Muscle Strain. - Medication Reconciliation, Work Release Form - 3 day form. - Follow up: Ally Sotelo; When: Call to arrange an appointment; Reason: Wound/Symptom Recheck, Recheck today's complaints, Worsening of conditions, Continuance of care. - Problem is an ongoing problem. - Symptoms are unchanged. - Notes: Please scrap picker the flexeril as prescribed last visit. Historical: - Allergies: Avelox (CHRISTENSEN); CEPHALOSPORINS; Ciprofloxacin (Swelling); Codeine Sulfate (Unknown); Crestor (hallucinations); Lipitor (hallucinations); Nitrofurantoin Macrocrystal (body aches); Novocain (heart races); Oxycodone-Acetaminophen; PENICILLINS; pravastatin (Anaphylaxis); SULFA (SULFONAMIDES) (Unknown); - Home Meds: 1. amlodipine 10 mg Oral tab 1 tab once daily (Last dose: 06/30/2016) 2. atenolol 25 mg Oral tab 0.5 tab 2 times per day (Last dose: 06/30/2016) 3. docusate sodium 100 mg Oral cap 1 cap once daily (Last dose: 06/30/2016) 4. Eliquis 5 mg oral tab 1 tab 2 times per day has not started taking it (Last dose: 06/30/2016) 5. Vitamin D3 1,000 unit oral chew daily (Last dose: 06/30/2016) 6. nizatidine 150 mg oral cap 1 cap 2 times per day (Last dose: 06/30/2016) - PMHx: Asthma; Atrial Fib; Hypertension; - PSHx: Appendectomy; ; Hysterectomy; - Social history: Smoking status: Patient states former smoker of tobacco. No barriers to communication noted, The patient speaks fluent Greek. - Family history: Not pertinent. - : The pt / caregiver states he / she is on anticoagulants: Eliquis Home medication list is obtained from the patient. - Exposure Risk Screening:: None identified. Vital Signs: 06/30 09:12 BP 164 / 80; Pulse 57; Resp 20; Temp 96.8(O); Pulse Ox 100% on R/A; Weight 65.77 kg / elp 145 lbs (R); Height 5 ft. 3 in. (160.02 cm) (R); Pain 8/10; 10:28 BP 145 / 68; Pulse 62; Resp 20; Temp 97.1(T); Pulse Ox 99% on R/A; dwg 09:12 Body Mass Index 25.69 (65.77 kg, 160.02 cm) elp MDM: 09:29 Spine, Thoracic 3 Views Ordered. EDCA 09:44 Financial registration complete. lg 10:41 [facility] Payment Agreement was scanned into [employer] and attached to record. lg 14:45 T-Sheet-- Draft Copy was scanned into [employer] and attached to record. gb Signatures: Dispatcher [employer] EDCA Reilly Tamayo, RN RN dwg Leslie Roblero, Reg Reg gb John Stevens, Reg Reg lg Perez Alarcon, LIZZIE SAMUEL cc10 The chart was reviewed and I authenticate all verbal orders and agree with the evaluation and treatment provided.Attachments: 10:41 [facility] Payment Agreement lg 14:45 T-Sheet-- Draft Copy gb Chart Complete MTDD
--- NOTE | 2016-07-02 11:31 | EDDOCDS ---
Physician Documentation [facility] Name: Gaby Johnson Age: 71 yrs Sex: Female : 1945 Arrival Date: 06/30/2016 Time: 09:08 Bed PR Private MD: Ally Sotelo L. Disposition: 06/30/16 10:22 Discharged to Home/Self Care. Impression: Strain of muscle and tendon of back wall of thorax - recheck-W/C. - Condition is Stable. - Discharge Instructions: Muscle Strain. - Medication Reconciliation, Work Release Form - 3 day form. - Follow up: Ally Sotelo; When: Call to arrange an appointment; Reason: Wound/Symptom Recheck, Recheck today's complaints, Worsening of conditions, Continuance of care. - Problem is an ongoing problem. - Symptoms are unchanged. 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 Historical: - Allergies: Avelox (CHRISTENSEN); CEPHALOSPORINS; Ciprofloxacin (Swelling); Codeine Sulfate (Unknown); Crestor (hallucinations); Lipitor (hallucinations); Nitrofurantoin Macrocrystal (body aches); Novocain (heart races); Oxycodone-Acetaminophen; PENICILLINS; pravastatin (Anaphylaxis); SULFA (SULFONAMIDES) (Unknown); - Home Meds: 1. amlodipine 10 mg Oral tab 1 tab once daily (Last dose: 06/30/2016) 2. atenolol 25 mg Oral tab 0.5 tab 2 times per day (Last dose: 06/30/2016) 3. docusate sodium 100 mg Oral cap 1 cap once daily (Last dose: 06/30/2016) 4. Eliquis 5 mg oral tab 1 tab 2 times per day has not started taking it (Last dose: 06/30/2016) 5. Vitamin D3 1,000 unit oral chew daily (Last dose: 06/30/2016) 6. nizatidine 150 mg oral cap 1 cap 2 times per day (Last dose: 06/30/2016) - PMHx: Asthma; Atrial Fib; Hypertension; - PSHx: Appendectomy; ; Hysterectomy; - Social history: Smoking status: Patient states former smoker of tobacco. No barriers to communication noted, The patient speaks fluent Ecuadorean. - Family history: Not pertinent. - : The pt / caregiver states he / she is on anticoagulants: Eliquis Home medication list is obtained from the patient. - Exposure Risk Screening:: None identified. Vital Signs: 06/30 09:12 BP 164 / 80; Pulse 57; Resp 20; Temp 96.8(O); Pulse Ox 100% on R/A; Weight 65.77 kg / elp 145 lbs (R); Height 5 ft. 3 in. (160.02 cm) (R); Pain 8/10; 10:28 BP 145 / 68; Pulse 62; Resp 20; Temp 97.1(T); Pulse Ox 99% on R/A; dwg 09:12 Body Mass Index 25.69 (65.77 kg, 160.02 cm) elp MDM: 09:29 Spine, Thoracic 3 Views Ordered. EDOR 09:44 Financial registration complete. lg 10:41 [facility] Payment Agreement was scanned into [employer] and attached to record. lg 14:45 T-Sheet-- Draft Copy was scanned into [employer] and attached to record. gb Signatures: Dispatcher [employer] EDOR Reilly Tamayo, RN RN dwg Leslie Roblero, Reg Reg gb John Stevens, Reg Reg lg Perez Alarcon, LIZZIE SAMUEL cc10 The chart was reviewed and I authenticate all verbal orders and agree with the evaluation and treatment provided.Attachments: 10:41 [facility] Payment Agreement lg 14:45 T-Sheet-- Draft Copy gb Chart Complete MTDD
--- NOTE | 2016-07-02 11:31 | EDDOCDS ---
Nurse's Notes [facility] Name: Gaby Johnson Age: 71 yrs Sex: Female : 1945 Arrival Date: 06/30/2016 Time: 09:08 Bed PR Private MD: Ally Sotelo L. Diagnosis: Strain of muscle and tendon of back wall of dfsrlb-[id number]-O/C Presentation: 06/30 09:18 Presenting complaint: Patient states: Continued mid back pain since injuring it about 4 dwg days ago, seen here 06/27/16 for same, has not taken any of the prescribed Flexeril. Acute neurological deficits are not present. Mechanism of Injury: Pulling motion. Adult Sepsis Screening: The patient does not have new or worsening altered mentation. Patient's respiratory rate is less than 22. Systolic blood pressure is greater than 100. Patient has a qSOFA score of 0- Negative Sepsis Screen. Suicide/Homicide risk assessment- the patient denies having any suicidal and/or homicidal ideations and does not present with any other emotional, behavioral or mental health complaints. Status: Patient is not a branch service representative or dependent. Transition of care: patient was not received from another setting of care. 09:18 Acuity: LUCIAN Level 5 dwg 09:18 Method Of Arrival: Walkin/Carried/Asstd dwg Triage Assessment: 09:23 General: Appears in no apparent distress. Pain: Pain currently is 7 out of 10 on a pain dwg scale. Historical: - Allergies: Avelox (CHRISTENSEN); CEPHALOSPORINS; Ciprofloxacin (Swelling); Codeine Sulfate (Unknown); Crestor (hallucinations); Lipitor (hallucinations); Nitrofurantoin Macrocrystal (body aches); Novocain (heart races); Oxycodone-Acetaminophen; PENICILLINS; pravastatin (Anaphylaxis); SULFA (SULFONAMIDES) (Unknown); - Home Meds: 1. amlodipine 10 mg Oral tab 1 tab once daily (Last dose: 06/30/2016) 2. atenolol 25 mg Oral tab 0.5 tab 2 times per day (Last dose: 06/30/2016) 3. docusate sodium 100 mg Oral cap 1 cap once daily (Last dose: 06/30/2016) 4. Eliquis 5 mg oral tab 1 tab 2 times per day has not started taking it (Last dose: 06/30/2016) 5. Vitamin D3 1,000 unit oral chew daily (Last dose: 06/30/2016) 6. nizatidine 150 mg oral cap 1 cap 2 times per day (Last dose: 06/30/2016) - PMHx: Asthma; Atrial Fib; Hypertension; - PSHx: Appendectomy; ; Hysterectomy; - Social history: Smoking status: Patient states former smoker of tobacco. No barriers to communication noted, The patient speaks fluent [place] Citizen. - Family history: Not pertinent. - : The pt / caregiver states he / she is on anticoagulants: Eliquis Home medication list is obtained from the patient. - Exposure Risk Screening:: None identified. Screenin:52 Screening information is obtained from the patient. Fall risk: No risks identified. dwg Assistance ADL's: requires no assistance with activities of daily living. Abuse/DV Screen: The patient / caregiver reports he/she is: not in a situation that causes fear, pain or injury. Nutritional screening: No deficits noted. Advance Directives: Currently, there is no health care proxy. There is no active DNR order. There is no living will. There is no Power of Sheriff Officer. Advance directive information has not previously been placed in an [facility] medical record. Further advance directive information is declined. home support is adequate. Assessment: 09:51 General: Appears in no apparent distress, Behavior is cooperative, pleasant. Pain: Pain dwg currently is 6 out of 10 on a pain scale. Neurological: Level of Consciousness is awake, alert, Oriented to person, place, time, Plastic And Reconstructive Surgeon are equal bilaterally Gait is steady. Respiratory: Airway is patent Respiratory effort is even, unlabored, Respiratory pattern is regular, symmetrical, Breath sounds are clear bilaterally. Musculoskeletal: Slight abrasion noted to mid back. 09:55 General: To radiology. dwg Vital Signs: 09:12 BP 164 / 80; Pulse 57; Resp 20; Temp 96.8(O); Pulse Ox 100% on R/A; Weight 65.77 kg elp (R); Height 5 ft. 3 in. (160.02 cm) (R); Pain 8/10; 10:28 BP 145 / 68; Pulse 62; Resp 20; Temp 97.1(T); Pulse Ox 99% on R/A; dwg 09:12 Body Mass Index 25.69 (65.77 kg, 160.02 cm) [facility] Vitals: 09:12 Log In Time: June 30, 2016 at 09:10. [facility] ED Course: 09:10 Patient visited by Rosa Maria Bertrand PCA. elp 09:10 Ally Sotelo is Private Physician. elp 09:10 Patient moved to Waiting elp 09:12 Patient visited by Rosa Maria Bertrand PCA. elp 09:12 Patient moved to Pre RCE elp 09:20 Triage Initiated dwg 09:23 Perez Alarcon PA-C is PHCP. cc10 09:23 Nimisha Pittman MD is Attending Physician. cc10 09:24 Patient moved to Triage 3 dwg 09:25 Patient visited by Perez Alarcon PA-C. cc10 09:25 Patient visited by Perez Alarcon PA-C. cc10 09:54 Patient moved to TR2 dwg 09:55 Patient visited by Reilly Tamayo RN. dwg 09:55 Patient moved to Radiology 4 09:59 Patient moved to TR2 bh4 10:10 Patient moved to PR1 / 25 srm 10:22 Ally Sotelo is Referral Physician. cc10 10:29 The patient / caregiver is instructed regarding the plan of care and ED course. dwg 10:29 No IV's were initiated during this patient's visit. No procedures done that require dwg assistance. 10:30 Patient visited by Reilly Tamayo RN. dwg 10:34 Spine, Thoracic 3 Views Returned. EDMS 10:41 [facility] Payment Agreement was scanned into [employer] and attached to record. 14:45 T-Sheet-- Draft Copy was scanned into [employer] and attached to record. gb Order Results: Radiology Order: Spine, Thoracic 3 Views Test: Spine, Thoracic 3 Views REASON FOR EXAMINATION: pain; THORACIC SPINE, THREE VIEWS:; ; HISTORY: Back pain.; ; There is no acute fracture or subluxation. There is loss of height of several; mid and lower thoracic intervertebral discs. Osteophytes are present in the mid; and lower thoracic spine. 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 The bony; structures is osteopenic.; ; IMPRESSION:; ; Degenerative change as described above.; ; ; Signed by; Kade Grijalva MD 06/30/2016 10:19 A; Outcome: 10:22 Discharge ordered by Provider. cc10 10:29 Discharge Assessment: Patient awake, alert and oriented x 3. No cognitive and/or dwg functional deficits noted. Patient verbalized understanding of disposition instructions. patient administered narcotics - no. The following High Risk Discharge criteria are identified: None. Discharged to home ambulatory. Condition: good Condition: stable Condition: unchanged. No special radiology studies were completed. Property sent home with patient. 10:30 Patient left the ED. dwg Signatures: Dispatcher [employer] EDReilly Davis RN RN dwЮлия Iglesias, BERTA RN [facility] Osbaldo, Leslie, Reg Reg gb John Stevens, Reg Reg lg [place], [facility]4 Rosa Maria Bertrand, TOMOGRAPHY TECHNOLOGIST TOMOGRAPHY TECHNOLOGIST elp Perez Alarcon, PA-C PA-C cc10 Chart Complete MTDD
== END 2016-06-30 10:30 | disposition home or self-care (01) ==
LOC: M ED 09:08
DX: S29.012D Strain of muscle and tendon of back wall of thorax, subsequent encounter (principal); X58.XXXD Exposure to other specified factors, subsequent encounter; I10 Essential (primary) hypertension; J45.909 Unspecified asthma, uncomplicated; I48.91 Unspecified atrial fibrillation; Z79.899 Other long term (current) drug therapy; Z79.01 Long term (current) use of anticoagulants; Z88.8 Allergy status to other drugs, medicaments and biological substances; Z88.1 Allergy status to other antibiotic agents; Z88.5 Allergy status to narcotic agent; Z88.4 Allergy status to anesthetic agent; Z88.0 Allergy status to penicillin; Z88.2 Allergy status to sulfonamides; Z87.891 Personal history of nicotine dependence

== ENCOUNTER 2016-08-12 01:38 | Emergency (ER) | payer MEDICARE, BC ==
[~2016-08-12] VITALS: Ht 160 cm; Wt 65.8 kg
[2016-08-12 01:44] VITALS: BP 191/81
== END 2016-08-12 02:17 | disposition left against medical advice (07) ==
LOC: M ED 02:00
DX: Z53.21 Procedure and treatment not carried out due to patient leaving prior to being seen by health care provider (principal)

== ENCOUNTER 2016-08-14 10:17 | Emergency (ER) | payer MEDICARE, BC ==
[~2016-08-14] VITALS: Ht 160 cm; Wt 65.8 kg
[2016-08-14] MEDS ORDERED: AZIT250T3 PO ×2 (10:44→12:19)
[2016-08-14] MEDS ORDERED: QVAR80AE7 INH (10:44)
[2016-08-14] MEDS ORDERED: ELIQ5TAB PO (10:44)
[2016-08-14] MEDS ORDERED: AMLO10TA2 PO (10:44)
[2016-08-14] MEDS ORDERED: ATEN25TA PO (10:44)
[2016-08-14] MEDS ORDERED: NIZA150C4 PO (10:44)
[2016-08-14] MEDS ORDERED: IPRATROPIUM 0.5MG/ALBUTEROL 2.5MG INH SOL UD 3ML (DUONEB)(J7620) As Ordered ONE (11:10)
[2016-08-14] MEDS ORDERED: IPRATROPIUM 0.5MG/ALBUTEROL 2.5MG INH SOL UD 3ML (DUONEB)(J7620) NEB ONE (11:15)
[2016-08-14] MEDS ORDERED: AZITHROMYCIN 250 MG TAB PO ONE (12:15)
[2016-08-14] MEDS ORDERED: ALBU17IN INH (12:22)
[2016-08-14 12:26] VITALS: BP 148/90
--- NOTE | 2016-08-15 05:53 | REP ---
TWO VIEW CHEST: REASON: Cough. COMPARISON: 06/19/2016. FINDINGS: The superior mediastinal structures are midline. The cardiac silhouette is unremarkable in size, shape, and position. The diaphragmatic surfaces of the lungs are regular, and the costophrenic angles are clear. The pulmonary [place] are clear. The imaged osseous structures are intact. IMPRESSION: There is no acute cardiopulmonary disease. No significant change from the prior exam. The lung [place] are somewhat hyperexpanded. Signed by Gilson Lombardo DO 08/15/2016 12:04 P
== END 2016-08-14 12:41 | disposition home or self-care (01) ==
LOC: M ED 11:12
DX: J01.90 Acute sinusitis, unspecified (principal); J20.9 Acute bronchitis, unspecified; I48.0 Paroxysmal atrial fibrillation; I10 Essential (primary) hypertension; E78.00 Pure hypercholesterolemia, unspecified; J45.909 Unspecified asthma, uncomplicated; I87.2 Venous insufficiency (chronic) (peripheral); K57.92 Diverticulitis of intestine, part unspecified, without perforation or abscess without bleeding; K21.9 Gastro-esophageal reflux disease without esophagitis; N39.41 Urge incontinence; M54.9 Dorsalgia, unspecified; M25.551 Pain in right hip; M25.552 Pain in left hip; Z87.891 Personal history of nicotine dependence; Z88.0 Allergy status to penicillin; Z88.2 Allergy status to sulfonamides; Z88.5 Allergy status to narcotic agent; Z88.1 Allergy status to other antibiotic agents; Z88.8 Allergy status to other drugs, medicaments and biological substances; Z91.030 Bee allergy status; Z91.010 Allergy to peanuts; Z91.09 Other allergy status, other than to drugs and biological substances; Z91.018 Allergy to other foods; Z79.899 Other long term (current) drug therapy; Z79.01 Long term (current) use of anticoagulants; Z79.2 Long term (current) use of antibiotics

== ENCOUNTER → 2016-09-24 | Outpatient (CLI) | payer MEDICARE, BC ==
[~2016-09-24] MED LIST: ALBU17IN INH; AMLO10TA2 PO; ATEN25TA PO; AZIT250T3 PO; ELIQ5TAB PO; NIZA150C4 PO; QVAR80AE7 INH
[2016-09-24 17:52] LABS: MEAN CORPUSCULAR HEMOGLOBIN 31.1 pg (27.0-33.0); MEAN CORPUSCULAR HGB CONC 33.5 g/dl (32.0-36.5); MEAN CORPUSCULAR VOLUME 92.8 fl (80.0-96.0); RED CELL DISTRIBUTION WIDTH 11.7 % (11.5-14.5); WHITE BLOOD COUNT 6.2 K/mm3 (4.0-10.0)
[2016-09-24 18:00] LABS: ALBUMIN 3.9 GM/DL (3.2-5.2); ALBUMIN/GLOBULIN RATIO 1.22 (1.00-1.93); ALKALINE PHOSPHATASE 84 U/L (45-117); ALT/SGPT 25 U/L (12-78); ANION GAP 9 MEQ/L (8-16); AST/SGOT 15 U/L (15-37); BILIRUBIN,TOTAL 0.8 MG/DL (0.2-1.0); BLOOD UREA NITROGEN 16 MG/DL (7-18); CALCIUM LEVEL 8.7 MG/DL (8.8-10.2); CARBON DIOXIDE LEVEL 31 MEQ/L (21-32); CHLORIDE LEVEL 110 MEQ/L (98-107); CHOLESTEROL LEVEL 208 MG/DL (<200); CREATININE FOR GFR 0.77 MG/DL (0.55-1.02); GLOMERULAR FILTRATION RATE > 60.0 (>39); GLUCOSE, FASTING 102 MG/DL (83-110); POTASSIUM SERUM 4.5 MEQ/L (3.5-5.1); SODIUM LEVEL 150 MEQ/L (136-145); TOTAL PROTEIN 7.1 GM/DL (6.4-8.2); TRIGLYCERIDES LEVEL 58 MG/DL (<150)
== END ==
LOC: M WUC 08:55
PROVIDERS: ATTEND Nurse Practitioner Adult Health
DX: Z00.00 Encounter for general adult medical examination without abnormal findings (principal); E55.9 Vitamin D deficiency, unspecified; E78.00 Pure hypercholesterolemia, unspecified

== ENCOUNTER → 2016-11-08 | Outpatient (CLI) | payer MEDICARE, BC ==
[2016-11-08 17:59] LABS: MEAN CORPUSCULAR HEMOGLOBIN 30.4 pg (27.0-33.0); MEAN CORPUSCULAR HGB CONC 33.1 g/dl (32.0-36.5); MEAN CORPUSCULAR VOLUME 91.8 fl (80.0-96.0); RED CELL DISTRIBUTION WIDTH 11.9 % (11.5-14.5)
[2016-11-08 18:53] LABS: ALBUMIN 3.8 GM/DL (3.2-5.2); ANION GAP 6 MEQ/L (8-16); BLOOD UREA NITROGEN 14 MG/DL (7-18); CARBON DIOXIDE LEVEL 29 MEQ/L (21-32); CHLORIDE LEVEL 104 MEQ/L (98-107); CREATININE FOR GFR 0.83 MG/DL (0.55-1.02); GLOMERULAR FILTRATION RATE > 60.0 (>39); GLUCOSE, FASTING 123 MG/DL (83-110); PHOSPHORUS LEVEL 4.2 MG/DL (2.5-4.9); POTASSIUM SERUM 4.4 MEQ/L (3.5-5.1); SODIUM LEVEL 139 MEQ/L (136-145)
== END ==
LOC: M WUC 13:14
PROVIDERS: ATTEND Physician Assistant
DX: I48.0 Paroxysmal atrial fibrillation (principal); I11.9 Hypertensive heart disease without heart failure

== ENCOUNTER 2016-11-15 08:51 | Emergency (ER) | payer MEDICARE, BC ==
[~2016-11-15] VITALS: Ht 160 cm; Wt 64.2 kg
--- NOTE | 2016-11-15 11:24 | REP ---
TWO VIEWS CHEST: COMPARISON: 08/14/2016. There is no acute infiltrate. The lungs are clear. The heart is normal in size. There is some calcification and tortuosity of the thoracic aorta. The mediastinal silhouette is unchanged. There are mild degenerative changes of the spine. IMPRESSION: No active pulmonary disease. Signed by Reilly Suh MD 11/15/2016 01:49 P
[2016-11-15 11:59] LABS: BASO # 0.1 K/mm3 (0.0-0.2); BASO % 1.2 % (0.0-1.0); EOS # 0.2 K/mm3 (0.0-0.50); EOS % 2.8 % (0.0-3.0); LARGE UNSTAINED CELL # 0.1 K/mm3 (0.0-0.4); LARGE UNSTAINED CELL % 1.7 % (0.0-4.0); LYMPH % 13.9 % (24.0-44.0); MEAN CORPUSCULAR HEMOGLOBIN 30.7 pg (27.0-33.0); MEAN CORPUSCULAR HGB CONC 33.7 g/dl (32.0-36.5); MEAN CORPUSCULAR VOLUME 91.1 fl (80.0-96.0); MONO # 0.4 K/mm3 (0.0-0.8); MONO % 5.9 % (0.0-5.0); NEUTROPHILS # 4.6 K/mm3 (1.8-7.7); NEUTROPHILS % 74.5 % (36.0-66.0); PLATELET COUNT, AUTOMATED 186 k/mm3 (150-450); WHITE BLOOD COUNT 6.2 K/mm3 (4.0-10.0)
[2016-11-15 12:04] LABS: ANION GAP 5 MEQ/L (8-16); BLOOD UREA NITROGEN 12 MG/DL (7-18); CALCIUM LEVEL 9.2 MG/DL (8.8-10.2); CARBON DIOXIDE LEVEL 30 MEQ/L (21-32); CHLORIDE LEVEL 102 MEQ/L (98-107); CREATININE FOR GFR 0.72 MG/DL (0.55-1.02); GLOMERULAR FILTRATION RATE > 60.0 (>39); GLUCOSE, FASTING 98 MG/DL (83-110); POTASSIUM SERUM 4.1 MEQ/L (3.5-5.1); SODIUM LEVEL 137 MEQ/L (136-145)
[2016-11-15 13:00] VITALS: BP 123/59
--- NOTE | 2016-11-16 16:05 | ECGEPIP ---
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
== END 2016-11-15 13:01 | disposition home or self-care (01) ==
LOC: M ED 09:56
DX: M79.602 Pain in left arm (principal); I10 Essential (primary) hypertension; I48.91 Unspecified atrial fibrillation; K57.90 Diverticulosis of intestine, part unspecified, without perforation or abscess without bleeding; J45.909 Unspecified asthma, uncomplicated; E78.00 Pure hypercholesterolemia, unspecified; Z90.89 Acquired absence of other organs; Z79.01 Long term (current) use of anticoagulants; Z88.0 Allergy status to penicillin; Z88.1 Allergy status to other antibiotic agents; Z88.2 Allergy status to sulfonamides; Z88.5 Allergy status to narcotic agent; Z88.8 Allergy status to other drugs, medicaments and biological substances; Z91.013 Allergy to seafood; Z91.010 Allergy to peanuts; Z91.09 Other allergy status, other than to drugs and biological substances; Z87.891 Personal history of nicotine dependence

== ENCOUNTER 2017-01-16 08:45 | Day surgery (SDC) | payer MEDICARE, BC ==
[~2017-01-16] VITALS: Ht 162.6 cm; Wt 62.1 kg
[~2017-01-16 08:45] MED LIST changes: +ACETAMINOPHEN 325 MG TAB PO PRN; +AZIT-12 PO; -AZIT250T3 PO; +BSS with VANC/TOB/EPI for EYE CASES IR ONE; +CYCLOPENTOLATE 2% OPHTH SOLN 2ML BTL OD ONE; +HEALON DUET (HEALON 10MG/ML 0.55ML & HEALON ENDOCOAT 30MG/ML 0.85ML) As Ordered ONE; +LIDOCAINE 1% SDV 5 ML VIAL As Ordered ONE; +LIDOCAINE 3.5 % 1ML OPHTH TOPICAL GEL OU ONE; +MIDAZOLAM INJ 2 MG/2 ML VIAL (J2250) As Ordered ONE; +MOXIFLOXACIN IN BSS 0.25MG/0.25ML INTRACAMERAL INJ (OR EYE ONLY)(J2280) As Ordered ONE; +PHENYLEPHRINE 2.5% OPHTH SOL 2ML OD ONE; +POVIDONE-IODINE 5% OPHTH PREP SOL 30ML As Ordered ONE; +PROPARACAINE 0.5% OPHTH SOL 15ML OD PRN; +QVAR1AER2 INH; -QVAR80AE7 INH; +TOBRAMYCIN 0.3% OPHTH SOLN 5 ML OD ONE; +TRIAMCINOLONE PRES FR 40 MG/ML 1ML(TRIESENCE)(OR EYE ONLY)(J3300 PER 1MG) As Ordered ONE; +TROPICAMIDE 1% OPHTH SOLN 2ML OD ONE
[2017-01-16] MEDS ORDERED: LR 1,000 ML IV ONE (09:15)
[2017-01-16] MEDS ORDERED: fentaNYL 100 MCG/2 ML INJECTION (J3010) As Ordered ONE (11:54)
[2017-01-16] MEDS ORDERED: LR 1,000 ML IV SCH (12:30)
[2017-01-16] MEDS ORDERED: TRIMETHOBENZAMIDE 300 MG CAP PO PRN (12:30)
[2017-01-16] MEDS ORDERED: ONDANSETRON 4MG/2ML VIAL (J2405) IV PRN (12:30)
[2017-01-16] MEDS ORDERED: KETOROLAC 0.5% OPHTH SOLN OD ONE (12:30)
[2017-01-16 12:40] VITALS: BP 147/67
== END 2017-01-16 12:50 | disposition home or self-care (01) ==
LOC: M SDC 08:45
PROVIDERS: ATTEND Ophthalmology
DX: H25.11 Age-related nuclear cataract, right eye (principal); I48.91 Unspecified atrial fibrillation; I10 Essential (primary) hypertension; E78.5 Hyperlipidemia, unspecified; K21.9 Gastro-esophageal reflux disease without esophagitis; J45.909 Unspecified asthma, uncomplicated; Z79.899 Other long term (current) drug therapy; Z79.02 Long term (current) use of antithrombotics/antiplatelets; Z91.040 Latex allergy status; Z88.2 Allergy status to sulfonamides; Z88.0 Allergy status to penicillin; Z91.010 Allergy to peanuts; Z91.013 Allergy to seafood; Z91.030 Bee allergy status
CPT/HCPCS: 66984; J2250; J3010; J3300; V2632

== ENCOUNTER → 2017-01-26 | Outpatient (CLI) | payer MEDICARE, BC ==
[~2017-01-26] MED LIST changes: -ACETAMINOPHEN 325 MG TAB PO PRN; -BSS with VANC/TOB/EPI for EYE CASES IR ONE; -CYCLOPENTOLATE 2% OPHTH SOLN 2ML BTL OD ONE; -HEALON DUET (HEALON 10MG/ML 0.55ML & HEALON ENDOCOAT 30MG/ML 0.85ML) As Ordered ONE; -LIDOCAINE 1% SDV 5 ML VIAL As Ordered ONE; -LIDOCAINE 3.5 % 1ML OPHTH TOPICAL GEL OU ONE; -MIDAZOLAM INJ 2 MG/2 ML VIAL (J2250) As Ordered ONE; -MOXIFLOXACIN IN BSS 0.25MG/0.25ML INTRACAMERAL INJ (OR EYE ONLY)(J2280) As Ordered ONE; -PHENYLEPHRINE 2.5% OPHTH SOL 2ML OD ONE; -POVIDONE-IODINE 5% OPHTH PREP SOL 30ML As Ordered ONE; +PRED1SUS; -PROPARACAINE 0.5% OPHTH SOL 15ML OD PRN; -TOBRAMYCIN 0.3% OPHTH SOLN 5 ML OD ONE; -TRIAMCINOLONE PRES FR 40 MG/ML 1ML(TRIESENCE)(OR EYE ONLY)(J3300 PER 1MG) As Ordered ONE; -TROPICAMIDE 1% OPHTH SOLN 2ML OD ONE
--- NOTE | 2017-01-26 13:30 | REP ---
RIGHT TIBIA/FIBULA, TWO VIEWS: HISTORY: Pain. There is no acute fracture or dislocation. The joint spaces are normal in appearance. Osteophytes are present on the patella. IMPRESSION: There is no acute fracture or dislocation. Signed by Kade Grijalva MD 01/26/2017 01:34 P
== END ==
LOC: M WUC 12:43
PROVIDERS: ATTEND Physician Assistant
DX: M79.661 Pain in right lower leg (principal)

== ENCOUNTER 2017-02-25 07:31 | Emergency (ER) | payer MEDICARE, BC ==
[~2017-02-25] VITALS: Ht 160 cm; Wt 62.7 kg
[~2017-02-25 07:31] MED LIST changes: -PRED1SUS
[2017-02-25] MEDS ORDERED: PRED1SUS (07:49)
[2017-02-25] MEDS ORDERED: ASPIRIN 81 MG CHEW TABLET PO ONE (08:15)
[2017-02-25 08:32] LABS: ANION GAP 3 MEQ/L (8-16); BLOOD UREA NITROGEN 13 MG/DL (7-18); CALCIUM LEVEL 8.5 MG/DL (8.8-10.2); CARBON DIOXIDE LEVEL 29 MEQ/L (21-32); CHLORIDE LEVEL 111 MEQ/L (98-107); CREATININE FOR GFR 0.68 MG/DL (0.55-1.02); GLOMERULAR FILTRATION RATE > 60.0 (>39); GLUCOSE, FASTING 86 MG/DL (83-110); POTASSIUM SERUM 4.1 MEQ/L (3.5-5.1); SODIUM LEVEL 143 MEQ/L (136-145)
[2017-02-25 08:39] LABS: BASO # 0.1 K/mm3 (0.0-0.2); BASO % 0.9 % (0.0-1.0); EOS # 0.2 K/mm3 (0.0-0.50); EOS % 3.2 % (0.0-3.0); LARGE UNSTAINED CELL # 0.2 K/mm3 (0.0-0.4); LARGE UNSTAINED CELL % 3.2 % (0.0-4.0); LYMPH # 0.9 K/mm3 (1.5-4.5); MEAN CORPUSCULAR HEMOGLOBIN 30.8 pg (27.0-33.0); MEAN CORPUSCULAR HGB CONC 34.4 g/dl (32.0-36.5); MEAN CORPUSCULAR VOLUME 89.8 fl (80.0-96.0); MONO # 0.5 K/mm3 (0.0-0.8); MONO % 7.4 % (0.0-5.0); NEUTROPHILS # 4.7 K/mm3 (1.8-7.7); NEUTROPHILS % 71.3 % (36.0-66.0); PLATELET COUNT, AUTOMATED 195 k/mm3 (150-450); RED CELL DISTRIBUTION WIDTH 11.9 % (11.5-14.5); WHITE BLOOD COUNT 6.6 K/mm3 (4.0-10.0)
--- NOTE | 2017-02-25 10:42 | REP ---
PORTABLE CHEST: AP portable view of the chest is performed and compared to prior study of 11/15/2016. Cardiac silhouette is prominent and probably magnified. Mediastinal silhouette is unremarkable. There are bibasilar fibroatelectatic changes without evidence of acute infiltrate. IMPRESSION: No acute infiltrate. Stable chronic findings. Signed by Reilly Suh MD 02/25/2017 07:30 P
[2017-02-25 13:02] VITALS: BP 121/64
--- NOTE | 2017-02-26 05:58 | ECGEPIP ---
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
--- NOTE | 2017-02-26 05:59 | ECGEPIP ---
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
== END 2017-02-25 13:04 | disposition home or self-care (01) ==
LOC: M ED 07:31
DX: R07.9 Chest pain, unspecified (principal); R00.1 Bradycardia, unspecified; R94.31 Abnormal electrocardiogram [ECG] [EKG]; I48.91 Unspecified atrial fibrillation; I10 Essential (primary) hypertension; E78.5 Hyperlipidemia, unspecified; J45.909 Unspecified asthma, uncomplicated; F17.200 Nicotine dependence, unspecified, uncomplicated; Z79.899 Other long term (current) drug therapy; Z91.040 Latex allergy status; Z88.8 Allergy status to other drugs, medicaments and biological substances; Z91.030 Bee allergy status; Z88.1 Allergy status to other antibiotic agents; Z88.5 Allergy status to narcotic agent; Z91.010 Allergy to peanuts; Z88.0 Allergy status to penicillin; Z91.013 Allergy to seafood; Z88.2 Allergy status to sulfonamides

== ENCOUNTER → 2017-03-17 | Outpatient (CLI) | payer MEDICARE, BC ==
[~2017-03-17] MED LIST changes: +PRED1SUS
--- NOTE | 2017-03-18 14:39 | REP ---
Left shoulder series: Three views. History: Left shoulder pain. Findings: The left glenohumeral and acromioclavicular joints are normally aligned. There is diffuse osteopenia. Minimal hypertrophy is seen at the AC joint. No erosive changes seen. Impression: Minimal AC joint hypertrophy. Diffuse osteopenia. Otherwise negative. Signed by Edmar Banegas MD 03/18/2017 03:27 P
== END ==
LOC: M WUC 18:13
PROVIDERS: ATTEND Nurse Practitioner Adult Health
DX: M25.512 Pain in left shoulder (principal)

== ENCOUNTER 2017-05-26 14:14 | Emergency (ER) | payer MEDICARE, BC ==
[~2017-05-26] VITALS: Ht 160 cm; Wt 63.2 kg
[2017-05-26 14:14] VITALS: BP 136/63
--- NOTE | 2017-05-26 15:56 | REP ---
RIGHT RIB SERIES: Four views of the right ribs were performed. No fracture or bone lesion is seen. An accompanying view of the chest demonstrates no acute infiltrate, pneumothorax or pleural effusion. There is mild pleural parenchymal scarring in the right base. IMPRESSION: No evidence of right rib fracture. Signed by Reilly Suh MD 05/26/2017 03:57 P
== END 2017-05-26 16:31 | disposition home or self-care (01) ==
LOC: M ED 14:14
DX: S20.211A Contusion of right front wall of thorax, initial encounter (principal); W01.10XA Fall on same level from slipping, tripping and stumbling with subsequent striking against unspecified object, initial encounter; Y92.099 Unspecified place in other non-institutional residence as the place of occurrence of the external cause; Y93.9 Activity, unspecified; Y99.9 Unspecified external cause status; I48.91 Unspecified atrial fibrillation; I10 Essential (primary) hypertension; J45.909 Unspecified asthma, uncomplicated; Z87.891 Personal history of nicotine dependence; Z79.899 Other long term (current) drug therapy; Z91.040 Latex allergy status; Z88.8 Allergy status to other drugs, medicaments and biological substances; Z91.030 Bee allergy status; Z88.1 Allergy status to other antibiotic agents; Z88.5 Allergy status to narcotic agent; J30.89 Other allergic rhinitis; Z91.89 Other specified personal risk factors, not elsewhere classified; Z91.010 Allergy to peanuts; Z88.0 Allergy status to penicillin; Z88.2 Allergy status to sulfonamides

== ENCOUNTER 2017-05-29 11:16 | Emergency (ER) | payer MEDICARE, BC | END 2017-05-29 12:55 | disposition home or self-care (01) | LOC: M ED 11:16 | DX: R07.89 Other chest pain (principal); I10 Essential (primary) hypertension; J45.909 Unspecified asthma, uncomplicated; Z79.899 Other long term (current) drug therapy; Z88.5 Allergy status to narcotic agent; Z88.8 Allergy status to other drugs, medicaments and biological substances; Z88.0 Allergy status to penicillin; Z88.2 Allergy status to sulfonamides; Z88.1 Allergy status to other antibiotic agents; Z91.030 Bee allergy status; Z91.040 Latex allergy status; Z91.010 Allergy to peanuts; Z91.013 Allergy to seafood; Z91.048 Other nonmedicinal substance allergy status; Z87.19 Personal history of other diseases of the digestive system | CPT/HCPCS: 99283 ==

== ENCOUNTER → 2017-06-21 | Outpatient (CLI) | payer MEDICARE, BC | LOC: M RAD 14:20 | DX: F17.210 Nicotine dependence, cigarettes, uncomplicated (principal) | CPT/HCPCS: G0297 ==

== ENCOUNTER 2017-06-29 04:15 | Emergency (ER) | payer MEDICARE, BC ==
[2017-06-29 05:24] LABS: HEMATOCRIT 41.8 % (36.0-47.0); HEMOGLOBIN 13.9 g/dl (12.0-16.0); MEAN CORPUSCULAR HEMOGLOBIN 29.7 pg (27.0-33.0); MEAN CORPUSCULAR HGB CONC 33.3 g/dl (32.0-36.5); MEAN CORPUSCULAR VOLUME 89.3 fl (80.0-96.0); PLATELET COUNT, AUTOMATED 172 10^3/uL (150-450); RED BLOOD COUNT 4.68 10^6/uL (4.00-5.40); WHITE BLOOD COUNT 5.7 10^3/uL (4.0-10.0)
[2017-06-29 05:37] LABS: ANION GAP 6 MEQ/L (8-16); BLOOD UREA NITROGEN 18 MG/DL (7-18); CALCIUM LEVEL 8.6 MG/DL (8.8-10.2); CARBON DIOXIDE LEVEL 27 MEQ/L (21-32); CHLORIDE LEVEL 107 MEQ/L (98-107); CPK CREATINE PHOSPHOKINASE 82 U/L (26-192); GLOMERULAR FILTRATION RATE > 60.0 (>39); GLUCOSE, FASTING 98 MG/DL (70-100); MAGNESIUM LEVEL 2.1 MG/DL (1.8-2.4); POTASSIUM SERUM 3.9 MEQ/L (3.5-5.1); SODIUM LEVEL 140 MEQ/L (136-145); TROPONIN I < 0.02 NG/ML (< 0.10)
[2017-06-29 05:43] LABS: CK-MB VALUE MASS 2.3 NG/ML (0.0-3.6)
== END 2017-06-29 06:07 | disposition home or self-care (01) ==
LOC: M ED 04:15
DX: I48.0 Paroxysmal atrial fibrillation (principal); R00.1 Bradycardia, unspecified; I48.91 Unspecified atrial fibrillation; I10 Essential (primary) hypertension; J45.909 Unspecified asthma, uncomplicated; J30.89 Other allergic rhinitis; Z79.01 Long term (current) use of anticoagulants; Z79.899 Other long term (current) drug therapy; Z91.040 Latex allergy status; Z91.030 Bee allergy status; Z88.8 Allergy status to other drugs, medicaments and biological substances; Z88.1 Allergy status to other antibiotic agents; Z88.5 Allergy status to narcotic agent; Z88.0 Allergy status to penicillin; Z88.2 Allergy status to sulfonamides; Z91.013 Allergy to seafood; Z91.010 Allergy to peanuts; Z91.89 Other specified personal risk factors, not elsewhere classified
CPT/HCPCS: 93005

== ENCOUNTER → 2017-07-03 | Outpatient (CLI) | payer MEDICARE, BC ==
[~2017-07-03] MED LIST changes: -ALBU17IN INH; -AMLO10TA2 PO; -ATEN25TA PO; -AZIT-12 PO; -ELIQ5TAB PO; +ISOVUE-370 76% 100ML VIAL (Q9967) As Ordered; -NIZA150C4 PO; -PRED1SUS; -QVAR1AER2 INH
== END ==
LOC: M RAD 13:02
DX: Z12.31 Encounter for screening mammogram for malignant neoplasm of breast (principal); Z78.0 Asymptomatic menopausal state; Z92.23 Personal history of estrogen therapy; Z92.89 Personal history of other medical treatment; D18.03 Hemangioma of intra-abdominal structures; J98.4 Other disorders of lung
CPT/HCPCS: Q9967

== ENCOUNTER → 2017-07-03 | Outpatient (CLI) | payer MEDICARE, BC | LOC: M WHC 15:07 | DX: Z12.31 Encounter for screening mammogram for malignant neoplasm of breast (principal); Z78.0 Asymptomatic menopausal state; Z92.23 Personal history of estrogen therapy; Z92.89 Personal history of other medical treatment ==

== ENCOUNTER 2017-08-03 15:17 | Emergency (ER) | payer MEDICARE, BC ==
[2017-08-03] MEDS: predniSONE 20 MG TAB PO (17:29)
[2017-08-03] MEDS: FAMOTIDINE 20 MG TAB PO (17:29)
== END 2017-08-03 18:05 | disposition home or self-care (01) ==
LOC: M ED 15:17
DX: R09.89 Other specified symptoms and signs involving the circulatory and respiratory systems (principal); T41.3X5A Adverse effect of local anesthetics, initial encounter; I10 Essential (primary) hypertension; J45.909 Unspecified asthma, uncomplicated; K21.9 Gastro-esophageal reflux disease without esophagitis; E78.5 Hyperlipidemia, unspecified; Z79.899 Other long term (current) drug therapy; Z79.01 Long term (current) use of anticoagulants; Z88.0 Allergy status to penicillin; Z88.1 Allergy status to other antibiotic agents; Z88.5 Allergy status to narcotic agent; Z88.8 Allergy status to other drugs, medicaments and biological substances; Z91.010 Allergy to peanuts; Z91.030 Bee allergy status; Z91.048 Other nonmedicinal substance allergy status; Z87.891 Personal history of nicotine dependence
CPT/HCPCS: 99283

== ENCOUNTER 2017-08-06 20:35 | Emergency (ER) | payer MEDICARE, BC ==
[2017-08-06] MEDS ORDERED: VERAPAMIL HCL 5 MG/2 ML VIAL IV (21:13)
[2017-08-06] MEDS: NS 500 ML IV (21:15)
[2017-08-06 21:17] LABS: BASO # 0.1 10^3/uL (0.0-0.2); BASO % 1.3 % (0.0-1.0); EOS # 0.3 10^3/uL (0.0-0.50); EOS % 3.5 % (0.0-3.0); HEMATOCRIT 44.7 % (36.0-47.0); HEMOGLOBIN 14.8 g/dl (12.0-16.0); IMMATURE GRANULOCYTE % 0.3 % (0-3.0); LYMPH # 1.7 10^3/uL (1.5-4.5); LYMPH % 22.7 % (24.0-44.0); MEAN CORPUSCULAR HEMOGLOBIN 29.7 pg (27.0-33.0); MEAN CORPUSCULAR HGB CONC 33.1 g/dl (32.0-36.5); MEAN CORPUSCULAR VOLUME 89.8 fl (80.0-96.0); MONO # 0.8 10^3/uL (0.0-0.8); MONO % 10.2 % (0.0-5.0); NEUTROPHILS # 4.7 10^3/uL (1.8-7.7); PLATELET COUNT, AUTOMATED 217 10^3/uL (150-450); RED BLOOD COUNT 4.98 10^6/uL (4.00-5.40); RED CELL DISTRIBUTION WIDTH 11.9 % (11.5-14.5); WHITE BLOOD COUNT 7.7 10^3/uL (4.0-10.0)
[2017-08-06 21:21] LABS: INR 1.09; PROTHROMBIN TIME 14.3 SECONDS (12.4-14.5)
[2017-08-06 21:31] LABS: ANION GAP 6 MEQ/L (8-16); BLOOD UREA NITROGEN 14 MG/DL (7-18); CALCIUM LEVEL 9.1 MG/DL (8.8-10.2); CARBON DIOXIDE LEVEL 28 MEQ/L (21-32); CHLORIDE LEVEL 107 MEQ/L (98-107); CK-MB VALUE MASS 2.6 NG/ML (0.0-3.6); CPK CREATINE PHOSPHOKINASE 82 U/L (26-192); CREATININE FOR GFR 0.73 MG/DL (0.55-1.30); GLOMERULAR FILTRATION RATE > 60.0 (>39); GLUCOSE, FASTING 131 MG/DL (70-100); MB/CK RELATIVE INDEX 3.17 (< OR =4); POTASSIUM SERUM 3.8 MEQ/L (3.5-5.1); SODIUM LEVEL 141 MEQ/L (136-145); TROPONIN I < 0.02 NG/ML (< 0.10)
[2017-08-06] MEDS: amLODIPine 5 MG TAB PO (21:33)
== END 2017-08-06 22:31 | disposition home or self-care (01) ==
LOC: M ED 20:35
DX: I48.91 Unspecified atrial fibrillation (principal); I10 Essential (primary) hypertension; I25.10 Atherosclerotic heart disease of native coronary artery without angina pectoris; Z79.899 Other long term (current) drug therapy; Z79.01 Long term (current) use of anticoagulants; Z88.0 Allergy status to penicillin; Z88.5 Allergy status to narcotic agent; Z88.6 Allergy status to analgesic agent; Z88.8 Allergy status to other drugs, medicaments and biological substances; Z91.010 Allergy to peanuts; Z91.030 Bee allergy status; Z91.048 Other nonmedicinal substance allergy status; J30.1 Allergic rhinitis due to pollen
CPT/HCPCS: 71046

== ENCOUNTER → 2017-10-10 | Outpatient (CLI) | payer MEDICARE, BC | LOC: M WUC 12:18 | DX: M77.32 Calcaneal spur, left foot (principal) | CPT/HCPCS: 73650 ==

== ENCOUNTER → 2017-10-17 | Outpatient (CLI) | payer MEDICARE, BC ==
[2017-10-17 17:05] LABS: ANION GAP 6 MEQ/L (8-16); BLOOD UREA NITROGEN 15 MG/DL (7-18); CALCIUM LEVEL 8.9 MG/DL (8.8-10.2); CARBON DIOXIDE LEVEL 26 MEQ/L (21-32); CHLORIDE LEVEL 108 MEQ/L (98-107); CREATININE FOR GFR 0.77 MG/DL (0.55-1.30); GLOMERULAR FILTRATION RATE > 60.0 (>39); GLUCOSE, FASTING 91 MG/DL (70-100); POTASSIUM SERUM 4.4 MEQ/L (3.5-5.1); SODIUM LEVEL 140 MEQ/L (136-145)
== END ==
LOC: M WUC 13:25
DX: I10 Essential (primary) hypertension (principal)
CPT/HCPCS: 80048

== ENCOUNTER → 2017-10-19 | Outpatient (CLI) | payer MEDICARE, BC | LOC: M RAD 14:58 | DX: R93.8 Abnormal findings on diagnostic imaging of other specified body structures (principal) | CPT/HCPCS: Q9967 ==

== ENCOUNTER 2017-12-12 07:05 | Emergency (ER) | payer MEDICARE, BC ==
[2017-12-12 09:02] LABS: HEMATOCRIT 45.1 % (36.0-47.0); HEMOGLOBIN 14.8 g/dl (12.0-15.5); MEAN CORPUSCULAR HEMOGLOBIN 29.5 pg (27.0-33.0); MEAN CORPUSCULAR HGB CONC 32.8 g/dl (32.0-36.5); MEAN CORPUSCULAR VOLUME 89.8 fl (80.0-96.0); PLATELET COUNT, AUTOMATED 187 10^3/uL (150-450); RED BLOOD COUNT 5.02 10^6/uL (4.00-5.40); RED CELL DISTRIBUTION WIDTH 12.2 % (11.5-14.5); WHITE BLOOD COUNT 5.9 10^3/uL (4.0-10.0)
[2017-12-12 09:25] LABS: ANION GAP 5 MEQ/L (8-16); BLOOD UREA NITROGEN 13 MG/DL (7-18); CALCIUM LEVEL 8.6 MG/DL (8.8-10.2); CARBON DIOXIDE LEVEL 29 MEQ/L (21-32); CHLORIDE LEVEL 109 MEQ/L (98-107); CPK CREATINE PHOSPHOKINASE 91 U/L (26-192); CREATININE FOR GFR 0.69 MG/DL (0.55-1.30); GLOMERULAR FILTRATION RATE > 60.0 (>39); GLUCOSE, FASTING 102 MG/DL (70-100); POTASSIUM SERUM 4.2 MEQ/L (3.5-5.1); SODIUM LEVEL 143 MEQ/L (136-145); TROPONIN I < 0.02 NG/ML (< 0.10)
[2017-12-12 09:30] LABS: CK-MB VALUE MASS 2.7 NG/ML (<3.6); MB/CK RELATIVE INDEX 2.96 (< OR =4); THYROID STIMULATING HORMONE 0.035 uIU/ML (0.358-3.740)
[2017-12-12 10:12] LABS: FREE T4 1.16 NG/DL (0.76-1.46)
[2017-12-12] MEDS: AMIODARONE HCL 150 MG in APPROPRIATE DILUENT 1 EA IV ×2 (11:31→14:04)
[2017-12-12] MEDS: METOPROLOL TART 25 MG TABLET PO (12:42)
[2017-12-12] MEDS: METOPROLOL 5 MG/5 ML VIAL IV ×3 (12:43→13:08)
== END 2017-12-12 16:59 | disposition home or self-care (01) ==
LOC: M ED 07:05
DX: I48.91 Unspecified atrial fibrillation (principal); I10 Essential (primary) hypertension; J44.9 Chronic obstructive pulmonary disease, unspecified; F17.200 Nicotine dependence, unspecified, uncomplicated; J30.1 Allergic rhinitis due to pollen; J30.89 Other allergic rhinitis; Z88.5 Allergy status to narcotic agent; Z88.8 Allergy status to other drugs, medicaments and biological substances; Z88.4 Allergy status to anesthetic agent; Z88.1 Allergy status to other antibiotic agents; Z88.0 Allergy status to penicillin; Z88.2 Allergy status to sulfonamides; Z91.010 Allergy to peanuts; Z91.048 Other nonmedicinal substance allergy status; Z91.040 Latex allergy status; Z91.030 Bee allergy status; Z91.013 Allergy to seafood; Z79.899 Other long term (current) drug therapy; Z79.01 Long term (current) use of anticoagulants; Z79.51 Long term (current) use of inhaled steroids
CPT/HCPCS: 93005

== ENCOUNTER 2018-01-01 08:47 | Emergency (ER) | payer MEDICARE, BC ==
[2018-01-01] MEDS: DIGOXIN 0.25 MG TAB PO (09:42)
== END 2018-01-01 10:16 | disposition home or self-care (01) ==
LOC: M ED 08:47
DX: I48.0 Paroxysmal atrial fibrillation (principal); Z79.899 Other long term (current) drug therapy; Z79.01 Long term (current) use of anticoagulants; Z88.0 Allergy status to penicillin; Z88.2 Allergy status to sulfonamides; Z88.5 Allergy status to narcotic agent; Z88.1 Allergy status to other antibiotic agents; Z88.4 Allergy status to anesthetic agent; Z91.040 Latex allergy status; Z91.030 Bee allergy status; Z91.010 Allergy to peanuts; J30.89 Other allergic rhinitis; J30.1 Allergic rhinitis due to pollen
CPT/HCPCS: 93005

== ENCOUNTER → 2018-01-20 | Outpatient (CLI) | payer MEDICARE, BC | LOC: M WUC 15:47 | DX: M79.645 Pain in left finger(s) (principal) | CPT/HCPCS: 73140 ==

== ENCOUNTER 2018-03-03 09:05 | Emergency (ER) | payer MEDICARE, BC ==
[2018-03-03 11:23] LABS: APPEARANCE, URINE CLEAR (CLEAR); BACTERIA, URINE AUTO NEGATIVE (NEGATIVE); BILIRUBIN, URINE AUTO NEGATIVE (NEGATIVE); BLOOD, URINE BLOOD NEGATIVE (NEGATIVE); COLOR, URINE STRAW (YELLOW); GLUCOSE, URINE (UA) AUTO NEGATIVE (NEGATIVE); KETONE, URINE AUTO NEGATIVE (NEGATIVE); LEUKOCYTE ESTERASE, URINE AUTO TRACE (NEGATIVE); NITRITE, URINE AUTO NEGATIVE (NEGATIVE); PROTEIN, URINE AUTO NEGATIVE (NEGATIVE); RBC, URINE AUTO 1 /HPF (0-3); SPECIFIC GRAVITY URINE AUTO 1.005 (1.002-1.035); SQUAMOUS EPITHELIAL CELL UR AU 0 /HPF (0-6); UROBILINOGEN, URINE AUTO 0.2 mg/dL (0.0-2.0); WBC, URINE AUTO 0 /HPF (0-3)
== END 2018-03-03 11:13 | disposition home or self-care (01) ==
LOC: M ED 09:05
DX: N81.10 Cystocele, unspecified (principal); I10 Essential (primary) hypertension; E78.5 Hyperlipidemia, unspecified; J45.909 Unspecified asthma, uncomplicated; K21.9 Gastro-esophageal reflux disease without esophagitis; J30.89 Other allergic rhinitis; Z87.891 Personal history of nicotine dependence; Z79.899 Other long term (current) drug therapy; Z88.8 Allergy status to other drugs, medicaments and biological substances; Z88.5 Allergy status to narcotic agent; Z88.0 Allergy status to penicillin; Z88.1 Allergy status to other antibiotic agents; Z88.2 Allergy status to sulfonamides; Z91.040 Latex allergy status; Z91.030 Bee allergy status; Z91.89 Other specified personal risk factors, not elsewhere classified; Z91.010 Allergy to peanuts
CPT/HCPCS: 81001

== ENCOUNTER → 2018-04-08 | Outpatient (CLI) | payer MEDICARE, BC | LOC: M WUC 15:32 | DX: S13.4XXA Sprain of ligaments of cervical spine, initial encounter (principal); X58.XXXA Exposure to other specified factors, initial encounter; Y92.9 Unspecified place or not applicable; M50.322 Other cervical disc degeneration at C5-C6 level | CPT/HCPCS: 72052 ==

== ENCOUNTER 2018-04-12 06:00 | Emergency (ER) | payer MEDICARE, OTHER, BC | END 2018-04-12 07:52 | disposition home or self-care (01) | LOC: M ED 06:00 | DX: S63.502A Unspecified sprain of left wrist, initial encounter (principal); W01.0XXA Fall on same level from slipping, tripping and stumbling without subsequent striking against object, initial encounter; Y92.89 Other specified places as the place of occurrence of the external cause; Y99.0 Civilian activity done for income or pay; I48.91 Unspecified atrial fibrillation; E78.00 Pure hypercholesterolemia, unspecified; J45.909 Unspecified asthma, uncomplicated; K21.9 Gastro-esophageal reflux disease without esophagitis; K57.92 Diverticulitis of intestine, part unspecified, without perforation or abscess without bleeding; M54.9 Dorsalgia, unspecified; Z88.5 Allergy status to narcotic agent; Z88.8 Allergy status to other drugs, medicaments and biological substances; Z88.4 Allergy status to anesthetic agent; Z88.1 Allergy status to other antibiotic agents; Z91.040 Latex allergy status; Z91.030 Bee allergy status; Z88.0 Allergy status to penicillin; Z88.2 Allergy status to sulfonamides; Z91.010 Allergy to peanuts; Z79.899 Other long term (current) drug therapy; Z79.01 Long term (current) use of anticoagulants | CPT/HCPCS: 73100 ==

== ENCOUNTER 2018-04-28 09:58 | Emergency (ER) | payer OTHER, MEDICARE, BC | END 2018-04-28 11:27 | disposition home or self-care (01) | LOC: M ED 09:58 | DX: M19.041 Primary osteoarthritis, right hand (principal); M19.042 Primary osteoarthritis, left hand; M19.071 Primary osteoarthritis, right ankle and foot; J45.909 Unspecified asthma, uncomplicated; I48.91 Unspecified atrial fibrillation; K21.9 Gastro-esophageal reflux disease without esophagitis; Z79.899 Other long term (current) drug therapy; Z79.01 Long term (current) use of anticoagulants; Z88.0 Allergy status to penicillin; Z88.1 Allergy status to other antibiotic agents; Z88.5 Allergy status to narcotic agent; Z88.8 Allergy status to other drugs, medicaments and biological substances; Z91.010 Allergy to peanuts; Z91.030 Bee allergy status; Z91.040 Latex allergy status ==

== ENCOUNTER 2018-04-28 15:20 | Emergency (ER) | payer MEDICARE, BC, OTHER ==
[2018-04-28 16:04] LABS: KETONE, URINE AUTO RFX NEGATIVE (NEGATIVE); NITRITE, URINE AUTO RFX NEGATIVE (NEGATIVE); RBC, URINE AUTO RFX 7 /HPF (0-3); SPECIFIC GRAVITY UR AUTO RFX 1.015 (1.002-1.035); SQUAM EPITHELIAL CELL UR AURFX 1 /HPF (0-6); WBC, URINE AUTO RFX 1 /HPF (0-3)
[2018-04-28 16:17] LABS: LEUKOCYTE ESTERASE UR AUTO RFX TRACE (NEGATIVE)
== END 2018-04-28 19:58 | disposition home or self-care (01) ==
LOC: M ED 15:20
DX: I48.0 Paroxysmal atrial fibrillation (principal); L25.9 Unspecified contact dermatitis, unspecified cause; J45.909 Unspecified asthma, uncomplicated; Z79.899 Other long term (current) drug therapy; Z79.01 Long term (current) use of anticoagulants; Z88.0 Allergy status to penicillin; Z88.1 Allergy status to other antibiotic agents; Z88.5 Allergy status to narcotic agent; Z88.8 Allergy status to other drugs, medicaments and biological substances; Z91.010 Allergy to peanuts; Z91.030 Bee allergy status; Z91.040 Latex allergy status; Z87.891 Personal history of nicotine dependence
CPT/HCPCS: 73130

== ENCOUNTER 2018-04-29 13:35 | Emergency (ER) | payer MEDICARE, BC | END 2018-04-29 15:42 | disposition home or self-care (01) | LOC: M ED 13:35 | DX: I48.91 Unspecified atrial fibrillation (principal) | CPT/HCPCS: 93005 ==

== ENCOUNTER → 2018-05-03 | Outpatient (REF) | payer MEDICARE, BC ==
[2018-05-03 13:38] LABS: BASO # 0.1 10^3/uL (0.0-0.2); BASO % 0.8 % (0.0-1.0); EOS # 0.1 10^3/uL (0.0-0.50); EOS % 1.6 % (0.0-3.0); HEMATOCRIT 37.4 % (36.0-47.0); HEMOGLOBIN 12.3 g/dl (12.0-15.5); IMMATURE GRANULOCYTE % 0.3 % (0-3.0); LYMPH # 1.4 10^3/uL (1.5-4.5); LYMPH % 15.7 % (24.0-44.0); MEAN CORPUSCULAR HEMOGLOBIN 30.3 pg (27.0-33.0); MEAN CORPUSCULAR HGB CONC 32.9 g/dl (32.0-36.5); MEAN CORPUSCULAR VOLUME 92.1 fl (80.0-96.0); MONO # 0.9 10^3/uL (0.0-0.8); MONO % 10.1 % (0.0-5.0); NEUTROPHILS # 6.2 10^3/uL (1.8-7.7); NEUTROPHILS % 71.5 % (36.0-66.0); PLATELET COUNT, AUTOMATED 283 10^3/uL (150-450); RED BLOOD COUNT 4.06 10^6/uL (4.00-5.40); RED CELL DISTRIBUTION WIDTH 12.1 % (11.5-14.5); WHITE BLOOD COUNT 8.6 10^3/uL (4.0-10.0)
[2018-05-03 14:17] LABS: ERYTHROCYTE SEDIMENTATION RATE 53 mm/hr (0-30)
[2018-05-03 14:47] LABS: C REACTIVE PROTEIN QUANTITATIV 4.44 MG/DL (0.00-0.30)
[2018-05-03 14:47] LABS: RHEUMATOID FACTOR QUANT < 10.0 IU/ML (<15.0)
[2018-05-05 00:58] LABS: ANTINUCLEAR ANTIBODIES DIRECT Negative (Negative); Lyme Disease IgG/IgM Antibodie <0.91 ISR (0.00-0.90); Lyme Disease IgM Ab Quantitati <0.80 index (0.00-0.79)
== END ==
LOC: M LABDRAW1 12:16
DX: M19.042 Primary osteoarthritis, left hand (principal)
CPT/HCPCS: 86140

== ENCOUNTER 2018-05-08 14:22 | Emergency (ER) | payer MEDICARE, BC ==
[~2018-05-08] VITALS: Ht 160 cm; Wt 62.3 kg
[~2018-05-08 14:22] MED LIST changes: +ALBU17IN INH; +AMLO10TA5 PO; +ATEN25TA PO; +AZIT-12 PO; +DESI13CR2 TOP; +DIGO0.12 PO; +ELIQ5TAB PO; -ISOVUE-370 76% 100ML VIAL (Q9967) As Ordered; +NIZA150C4 PO; +PRED1SUS2; +QVAR80AE10 INH; +VITA200038 PO
[2018-05-08 17:04] LABS: BASO # 0.1 10^3/uL (0.0-0.2); EOS # 0.2 10^3/uL (0.0-0.50); EOS % 2.5 % (0.0-3.0); HEMATOCRIT 39.4 % (36.0-47.0); HEMOGLOBIN 12.8 g/dl (12.0-15.5); LYMPH # 1.3 10^3/uL (1.5-4.5); LYMPH % 17.1 % (24.0-44.0); MEAN CORPUSCULAR HEMOGLOBIN 29.6 pg (27.0-33.0); MEAN CORPUSCULAR HGB CONC 32.5 g/dl (32.0-36.5); MEAN CORPUSCULAR VOLUME 91.2 fl (80.0-96.0); MONO # 0.8 10^3/uL (0.0-0.8); MONO % 11.3 % (0.0-5.0); NEUTROPHILS % 67.7 % (36.0-66.0); PLATELET COUNT, AUTOMATED 284 10^3/uL (150-450); RED BLOOD COUNT 4.32 10^6/uL (4.00-5.40); WHITE BLOOD COUNT 7.3 10^3/uL (4.0-10.0)
[2018-05-08 17:18] LABS: ALBUMIN 3.5 GM/DL (3.2-5.2); ALT/SGPT 21 U/L (12-78); BILIRUBIN,TOTAL 0.3 MG/DL (0.2-1.0); BLOOD UREA NITROGEN 14 MG/DL (7-18); CALCIUM LEVEL 8.6 MG/DL (8.8-10.2); CARBON DIOXIDE LEVEL 26 MEQ/L (21-32); CHLORIDE LEVEL 106 MEQ/L (98-107); CREATININE FOR GFR 0.67 MG/DL (0.55-1.30); GLOMERULAR FILTRATION RATE > 60.0 (>39); GLUCOSE, FASTING 101 MG/DL (70-100); POTASSIUM SERUM 4.2 MEQ/L (3.5-5.1); SODIUM LEVEL 141 MEQ/L (136-145)
[2018-05-08] MEDS ORDERED: PRED50TA PO (17:49)
[2018-05-08] MEDS ORDERED: CLIN150C14 PO (17:49)
[2018-05-08 17:52] VITALS: BP 155/70
[2018-05-08] MEDS ORDERED: predniSONE 20 MG TAB PO ONE (18:00)
[2018-05-08] MEDS ORDERED: CLINDAMYCIN 150 MG CAP PO ONE (18:00)
== END 2018-05-08 18:01 | disposition home or self-care (01) ==
LOC: M ED 14:22
DX: M06.341 Rheumatoid nodule, right hand (principal); M06.342 Rheumatoid nodule, left hand; L08.9 Local infection of the skin and subcutaneous tissue, unspecified; I48.91 Unspecified atrial fibrillation; E78.00 Pure hypercholesterolemia, unspecified; I10 Essential (primary) hypertension; J45.909 Unspecified asthma, uncomplicated; K21.9 Gastro-esophageal reflux disease without esophagitis; K57.30 Diverticulosis of large intestine without perforation or abscess without bleeding; Z87.891 Personal history of nicotine dependence; Z79.01 Long term (current) use of anticoagulants; Z79.899 Other long term (current) drug therapy; Z91.040 Latex allergy status; Z91.030 Bee allergy status; J30.89 Other allergic rhinitis; Z91.89 Other specified personal risk factors, not elsewhere classified; Z91.013 Allergy to seafood; Z88.2 Allergy status to sulfonamides; Z88.8 Allergy status to other drugs, medicaments and biological substances; Z88.0 Allergy status to penicillin; Z91.010 Allergy to peanuts; Z88.1 Allergy status to other antibiotic agents; Z88.5 Allergy status to narcotic agent

== ENCOUNTER → 2018-05-20 | Outpatient (REF) | payer MEDICARE, BC ==
[~2018-05-20] MED LIST changes: +AMLO10TA4 PO; -AMLO10TA5 PO; +CLIN150C14 PO; +PRED1SUS; -PRED1SUS2; +PRED50TA PO
== END ==
LOC: M WUC 12:41
PROVIDERS: ATTEND Physician Assistant
DX: J02.9 Acute pharyngitis, unspecified (principal)

== ENCOUNTER → 2018-07-03 | Outpatient (CLI) | payer MEDICARE, BC ==
[~2018-07-03] MED LIST changes: -AMLO10TA4 PO; +AMLO10TA5 PO; -PRED1SUS; +PRED1SUS2
--- NOTE | 2018-07-03 10:44 | REPMRS ---
Patient History The patient states she has not had a clinical breast exam in over a year. Family history of colorectal cancer at age 80 in maternal uncle. Benign US guided breast biopsy of both breasts. Took hormonal contraceptives for 2 months. Took estrogen for 5 years. 3D TOMOSYNTHESIS WAS PERFORMED. Digital Mammo Screening Bilat: July 03, 2018 - Exam #: [id number] Bilateral CC and MLO view(s) were taken. Technologist: Kayleigh Key, Technologist Prior study comparison: July 03, 2017, digital woman screen mammo, performed at [facility]. May 10, 2016, bilateral digital mammo screening bilat performed at [facility]. FINDINGS: There are scattered fibroglandular densities. There has been no change in the appearance of the mammogram from the prior studies. There is a mild amount of residual fibroglandular tissue which is fairly symmetric. There is no interval development of dominant mass, architectural distortion, or clustered microcalcification suggestive of malignancy. Assessment: BI-RADS/ACR category 1 mammogram. Negative Mammogram. Recommendation Routine screening mammogram in 1 year (for women over age 40). This mammogram was interpreted with the aid of an FDA-approved computer-aided dectection system. Electronically Signed By: Reilly Suh MD 07/03/18 2330
== END ==
LOC: M RAD 09:28
PROVIDERS: ATTEND Nurse Practitioner Adult Health
DX: Z12.31 Encounter for screening mammogram for malignant neoplasm of breast (principal); Z80.0 Family history of malignant neoplasm of digestive organs

== ENCOUNTER → 2018-07-31 | Outpatient (CLI) | payer MEDICARE, BC ==
--- NOTE | 2018-07-31 15:03 | REP ---
Clinical: Pain. Contusion. Technique: AP, lateral, bilateral oblique and sunrise views of the left knee. Findings: Age-related degenerative changes are appreciated. No acute fracture dislocation. No effusion. Pelham view suggests mild anterior swelling. Impression: Mild swelling. No acute fracture or dislocation. Electronically Signed by Tam Cunningham MD 07/31/2018 02:54 P
--- NOTE | 2018-07-31 15:20 | REP ---
UNILATERAL RIGHT RIBS, PA CHEST: HISTORY: Contusion. COMPARISON: 08/06/2017 The lungs are clear. The heart is normal in size. The pulmonary vasculature is normal in appearance. The bony structure is intact. IMPRESSION: No acute disease. Electronically Signed by Kade Grijalva MD 07/31/2018 03:22 P
== END ==
LOC: M WUC 14:12
PROVIDERS: ATTEND Physician Assistant
DX: S20.211A Contusion of right front wall of thorax, initial encounter (principal); S80.02XA Contusion of left knee, initial encounter; X58.XXXA Exposure to other specified factors, initial encounter; Y92.9 Unspecified place or not applicable

== ENCOUNTER → 2018-08-03 | Outpatient (REF) | payer MEDICARE, BC | LOC: M LABDRAW1 15:59 | PROVIDERS: ATTEND Physical Medicine & Rehabilitation | DX: M54.2 Cervicalgia (principal) ==

== ENCOUNTER 2018-08-27 09:38 | Emergency (ER) | payer MEDICARE, BC ==
[~2018-08-27] VITALS: Ht 160 cm; Wt 63.2 kg
[2018-08-27 10:22] LABS: BASO # 0.1 10^3/uL (0.0-0.2); BASO % 0.9 % (0.0-1.0); EOS # 0.3 10^3/uL (0.0-0.50); EOS % 3.9 % (0.0-3.0); HEMATOCRIT 39.2 % (36.0-47.0); HEMOGLOBIN 12.4 g/dl (12.0-15.5); LYMPH # 1.1 10^3/uL (1.5-4.5); LYMPH % 15.4 % (24.0-44.0); MEAN CORPUSCULAR HEMOGLOBIN 28.4 pg (27.0-33.0); MEAN CORPUSCULAR HGB CONC 31.6 g/dl (32.0-36.5); MEAN CORPUSCULAR VOLUME 89.9 fl (80.0-96.0); MONO # 0.7 10^3/uL (0.0-0.8); MONO % 9.7 % (0.0-5.0); NEUTROPHILS # 5.2 10^3/uL (1.8-7.7); NEUTROPHILS % 69.8 % (36.0-66.0); PLATELET COUNT, AUTOMATED 218 10^3/uL (150-450); RED BLOOD COUNT 4.36 10^6/uL (4.00-5.40); WHITE BLOOD COUNT 7.4 10^3/uL (4.0-10.0)
--- NOTE | 2018-08-27 10:45 | REP ---
Chest x-ray: Two views. History: Chest pain. Comparison study: July 31, 2018 and August 06, 2017. Findings: Cardiac enlargement is noted. Cardiothoracic ratio is measured at 53.5%. This appears slightly more prominent than on August 06, 2017. The aorta is tortuous. There is no evidence of pulmonary edema or pleural effusion. There is discoid atelectasis in the left lower lobe. There is a linear fibrotic density in the right lower lobe unchanged from the comparison study. No new infiltrate. Impression: Cardiomegaly, a little more prominent than on the 2018 prior study. Linear fibrosis right base. No new infiltrate. Electronically Signed by Edmar Banegas MD 08/27/2018 12:08 P
[2018-08-27 10:46] LABS: BLOOD UREA NITROGEN 13 MG/DL (7-18); CALCIUM LEVEL 8.6 MG/DL (8.8-10.2); CARBON DIOXIDE LEVEL 26 MEQ/L (21-32); CHLORIDE LEVEL 105 MEQ/L (98-107); CPK CREATINE PHOSPHOKINASE 41 U/L (26-192); CREATININE FOR GFR 0.82 MG/DL (0.55-1.30); GLOMERULAR FILTRATION RATE > 60.0 (>39); GLUCOSE, FASTING 96 MG/DL (70-100); MB/CK RELATIVE INDEX 2.68 (< OR =4); POTASSIUM SERUM 4.3 MEQ/L (3.5-5.1); SODIUM LEVEL 138 MEQ/L (136-145); TROPONIN I 0.21 NG/ML (< 0.10)
[2018-08-27] MEDS ORDERED: IBUPROFEN 800 MG TAB PO ONE (11:30)
[2018-08-27 16:05] LABS: CK-MB VALUE MASS < 1.0 NG/ML (<3.6); CPK CREATINE PHOSPHOKINASE 47 U/L (26-192); MB/CK RELATIVE INDEX 2.13 (< OR =4); TROPONIN I 0.19 NG/ML (< 0.10)
[2018-08-27 16:41] VITALS: BP 119/79
--- NOTE | 2018-08-27 21:11 | ECGEPIP ---
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
--- NOTE | 2018-08-27 21:19 | ECGEPIP ---
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
== END 2018-08-27 16:43 | disposition home or self-care (01) ==
LOC: M ED 09:38
DX: R07.9 Chest pain, unspecified (principal); R00.1 Bradycardia, unspecified; I10 Essential (primary) hypertension; J45.909 Unspecified asthma, uncomplicated; M19.90 Unspecified osteoarthritis, unspecified site; Z87.891 Personal history of nicotine dependence; Z91.010 Allergy to peanuts; Z91.048 Other nonmedicinal substance allergy status; Z86.79 Personal history of other diseases of the circulatory system; Z79.899 Other long term (current) drug therapy; Z79.51 Long term (current) use of inhaled steroids; Z79.01 Long term (current) use of anticoagulants

== ENCOUNTER 2018-09-10 13:44 | Emergency (ER) | payer MEDICARE, BC ==
[~2018-09-10] VITALS: Ht 162.6 cm; Wt 63.6 kg
--- NOTE | 2018-09-10 18:05 | REP ---
CT of the abdomen pelvis without IV and oral contrast for right lower quadrant pain: Comparison is 04/07/2010. The the patient has an appendectomy, bladder suspension and hysterectomy. The visualized lung [place] demonstrate discoid atelectasis in the right lower lobe but are otherwise are normal. There are two hypodense lesions inferiorly in the right lobe of the liver. The smaller measuring 1.8 cm in diameter and the larger measures 2.4 cm in diameter. These are unchanged from the prior study. The hepatic parenchyma is otherwise unremarkable. The gallbladder is unremarkable. There is fullness in the body/tail of the pancreas, however this is unchanged. There are are calcifications in the body/tail of the pancreas as an interval change, possibly from previous pancreatitis. The spleen is unremarkable. The adrenals are unremarkable. There is no hydronephrosis. There are is a 5 mm calcification in the pelvis on the right on image 87, similar to the comparison study, likely a phlebolith in the absence of hydronephrosis. The left kidney is unremarkable. The bladder is unremarkable. The abdominal aorta is unremarkable except for calcified atheroma and is unchanged. There is no retroperitoneal adenopathy. There is no ascites. There is no bowel distension or obstruction. There is diverticulosis without CT evidence of diverticulitis. Pelvis: The vaginal cuff and adnexa are unremarkable. The bladder is unremarkable. There is no ascites or adenopathy. Impression: 5 ml calcification in the pelvis on the right without hydronephrosis, unchanged from the prior study, likely a phlebolith. Two stable hypodense lesions in the liver, unchanged from the comparison study. Appendectomy, bladder suspension and hysterectomy. Pancreatic calcification as an interval change, possibly from the antrum pancreatitis. Electronically Signed by Reilly Oliveira MD 09/10/2018 05:56 P
[2018-09-10 18:13] VITALS: BP 156/78
== END 2018-09-10 18:16 | disposition home or self-care (01) ==
LOC: M ED 13:44
DX: R10.31 Right lower quadrant pain (principal); Z98.890 Other specified postprocedural states; I48.91 Unspecified atrial fibrillation; I10 Essential (primary) hypertension; E78.00 Pure hypercholesterolemia, unspecified; J45.909 Unspecified asthma, uncomplicated; K57.90 Diverticulosis of intestine, part unspecified, without perforation or abscess without bleeding; M25.551 Pain in right hip; M25.552 Pain in left hip; Z87.891 Personal history of nicotine dependence; Z88.0 Allergy status to penicillin; Z88.2 Allergy status to sulfonamides; Z88.5 Allergy status to narcotic agent; Z88.8 Allergy status to other drugs, medicaments and biological substances; Z88.1 Allergy status to other antibiotic agents; Z88.4 Allergy status to anesthetic agent; Z91.030 Bee allergy status; Z91.010 Allergy to peanuts; Z91.040 Latex allergy status; Z91.048 Other nonmedicinal substance allergy status; Z79.899 Other long term (current) drug therapy; Z79.01 Long term (current) use of anticoagulants; Z79.51 Long term (current) use of inhaled steroids

== ENCOUNTER → 2018-09-26 | Outpatient (CLI) | payer MEDICARE, BC ==
--- NOTE | 2018-09-26 19:14 | REP ---
KUB, ONE VIEW: HISTORY: Right lower quadrant pain. A small amount of air is present in the intestine. There are no air fluid levels or dilated loops of intestine. There is no pneumoperitoneum. A moderate amount of stool is present in the colon. IMPRESSION:Nonspecific bowel gas pattern. Electronically Signed by Kade Grijalva MD 09/26/2018 07:24 P
[2018-09-26 20:06] LABS: BASO # 0.1 10^3/uL (0.0-0.2); BASO % 1.4 % (0.0-1.0); EOS # 0.3 10^3/uL (0.0-0.50); EOS % 3.6 % (0.0-3.0); HEMOGLOBIN 13.2 g/dl (12.0-15.5); LYMPH # 1.7 10^3/uL (1.5-4.5); LYMPH % 23.2 % (24.0-44.0); MEAN CORPUSCULAR HEMOGLOBIN 28.6 pg (27.0-33.0); MEAN CORPUSCULAR HGB CONC 31.4 g/dl (32.0-36.5); MEAN CORPUSCULAR VOLUME 91.1 fl (80.0-96.0); MONO # 0.8 10^3/uL (0.0-0.8); MONO % 10.3 % (0.0-5.0); NEUTROPHILS # 4.5 10^3/uL (1.8-7.7); NEUTROPHILS % 61.4 % (36.0-66.0); PLATELET COUNT, AUTOMATED 245 10^3/uL (150-450); RED BLOOD COUNT 4.61 10^6/uL (4.00-5.40); WHITE BLOOD COUNT 7.3 10^3/uL (4.0-10.0)
[2018-09-26 20:24] LABS: ALBUMIN 3.9 GM/DL (3.2-5.2); ALT/SGPT 21 U/L (12-78); BILIRUBIN,TOTAL 0.4 MG/DL (0.2-1.0); BLOOD UREA NITROGEN 18 MG/DL (7-18); CALCIUM LEVEL 8.8 MG/DL (8.8-10.2); CARBON DIOXIDE LEVEL 27 MEQ/L (21-32); CHLORIDE LEVEL 107 MEQ/L (98-107); CREATININE FOR GFR 0.75 MG/DL (0.55-1.30); GLOMERULAR FILTRATION RATE > 60.0 (>39); GLUCOSE, FASTING 92 MG/DL (70-100); POTASSIUM SERUM 3.7 MEQ/L (3.5-5.1); SODIUM LEVEL 140 MEQ/L (136-145); TOTAL PROTEIN 7.1 GM/DL (6.4-8.2)
== END ==
LOC: M WUC 17:24
PROVIDERS: ATTEND Physician Assistant
DX: R14.3 Flatulence (principal)

== ENCOUNTER → 2018-09-26 | Outpatient (REF) | payer MEDICARE, BC | LOC: M LAB REF 19:17 | PROVIDERS: ATTEND Physician Assistant | DX: R10.31 Right lower quadrant pain (principal) ==

== ENCOUNTER → 2018-10-01 | Outpatient (REF) | payer MEDICARE, BC | LOC: M SFHCPLAZ 15:50 | PROVIDERS: ATTEND Nurse Practitioner Adult Health | DX: Z83.3 Family history of diabetes mellitus (principal); Z53.8 Procedure and treatment not carried out for other reasons ==

== ENCOUNTER → 2018-10-13 | Outpatient (CLI) | payer MEDICARE, BC ==
[2018-10-13 19:13] LABS: HEMOGLOBIN A1c 5.9 %
== END ==
LOC: M WUC 12:12
PROVIDERS: ATTEND Nurse Practitioner Adult Health
DX: Z83.3 Family history of diabetes mellitus (principal)

== ENCOUNTER → 2018-12-16 | Outpatient (CLI) | payer MEDICARE, BC ==
[~2018-12-16] MED LIST changes: -DIGO0.12 PO; +DIGO0.123 PO; +QVAR80AE8 INH; +VENTAER INH; +VITA-157 PO; +VITA500079 PO; +[UNRECOGNIZED DRUG - CODE] PO
--- NOTE | 2018-12-16 09:37 | REP ---
Right rib series: Five views. History: Contusion right side of the chest. Injury in a fall. Comparison chest x-ray: August 27, 2018. Findings: PA chest radiograph shows mild cardiac enlargement unchanged. There is no evidence of pneumothorax or hydrothorax. Mediastinum is not widened. The aorta is calcific and somewhat tortuous as before. The lung [place] are clear. Vascular calcifications noted in the carotid arteries bilaterally. There is diffuse osteopenia. Multiple views of the right ribcage show no bony destructive lesion or rib fracture. Impression: No rib fracture noted. Diffuse osteopenia. Cardiomegaly. Vascular calcification. Electronically Signed by Emdar Banegas MD 12/16/2018 09:29 A
== END ==
LOC: M WUC 08:49
PROVIDERS: ATTEND Physician Assistant
DX: S20.211A Contusion of right front wall of thorax, initial encounter (principal); X58.XXXA Exposure to other specified factors, initial encounter; Y92.89 Other specified places as the place of occurrence of the external cause; I51.7 Cardiomegaly; M85.80 Other specified disorders of bone density and structure, unspecified site; I70.0 Atherosclerosis of aorta

== ENCOUNTER → 2019-03-12 | Outpatient (CLI) | payer MEDICARE, BC ==
[~2019-03-12] MED LIST changes: +DIGO0.12 PO; -DIGO0.123 PO; -QVAR80AE8 INH; -VENTAER INH; -VITA-157 PO; -VITA500079 PO; -[UNRECOGNIZED DRUG - CODE] PO
--- NOTE | 2019-03-12 10:46 | REP ---
Low-dose lung screening CT of the chest: The study is performed without IV contrast. The images are presented at lung windowing only. Comparisons are the most recent prior study of 10/19/2017 and the most remote study of 07/25/2011. There is a new right lower lobe, 2.2 a centimeter ground-glass density on image 61 as an interval change. There are no other lung nodules or masses. There are no infiltrates or pleural effusions. There are two tiny stable pleural plaques along the minor fissure, unchanged. Impression: The new 2.2 cm ground-glass density in the right lower lobe is a category II lesion with the probability of malignancy 1% - 2%. Follow-up low-dose lung screening CT in 6 months is recommended for further evaluation. Electronically Signed by Reilly Oliveira MD 03/12/2019 10:38 A
== END ==
LOC: M RAD 09:38
PROVIDERS: ATTEND Nurse Practitioner Adult Health
DX: Z12.2 Encounter for screening for malignant neoplasm of respiratory organs (principal); F17.201 Nicotine dependence, unspecified, in remission; R91.8 Other nonspecific abnormal finding of lung field

== ENCOUNTER → 2019-03-25 | Outpatient (REF) | payer MEDICARE, BC | LOC: M LABDRAW1 15:35 | PROVIDERS: ATTEND Physician Assistant Medical | DX: M47.892 Other spondylosis, cervical region (principal) ==

== ENCOUNTER → 2019-04-03 | Outpatient (REF) | payer MEDICARE, BC ==
[2019-04-03 15:45] LABS: ALBUMIN 3.8 GM/DL (3.2-5.2); ALT/SGPT 24 U/L (12-78); BILIRUBIN,TOTAL 0.6 MG/DL (0.2-1.0); BLOOD UREA NITROGEN 17 MG/DL (7-18); CARBON DIOXIDE LEVEL 30 MEQ/L (21-32); CHLORIDE LEVEL 105 MEQ/L (98-107); CHOLESTEROL LEVEL 206 MG/DL (<200); CHOLESTEROL RISK RATIO 2.985 (<5); CREATININE FOR GFR 0.77 MG/DL (0.55-1.30); GLOMERULAR FILTRATION RATE > 60.0 (>39); GLUCOSE, FASTING 106 MG/DL (70-100); HDL CHOLESTEROL 69 MG/DL (>40); HEMATOCRIT 44.9 % (36.0-47.0); HEMOGLOBIN 14.4 g/dl (12.0-15.5); LDL CHOLESTEROL 112 MG/DL (<100); MEAN CORPUSCULAR HEMOGLOBIN 30.3 pg (27.0-33.0); MEAN CORPUSCULAR HGB CONC 32.1 g/dl (32.0-36.5); MEAN CORPUSCULAR VOLUME 94.5 fl (80.0-96.0); NON-HDL-C 137 MG/DL; PLATELET COUNT, AUTOMATED 251 10^3/uL (150-450); POTASSIUM SERUM 4.7 MEQ/L (3.5-5.1); RED BLOOD COUNT 4.75 10^6/uL (4.00-5.40); SODIUM LEVEL 139 MEQ/L (136-145); TOTAL PROTEIN 7.5 GM/DL (6.4-8.2); TRIGLYCERIDES LEVEL 126 MG/DL (<150); WHITE BLOOD COUNT 7.8 10^3/uL (4.0-10.0)
[2019-04-04 12:47] LABS: ALBUMIN 4.41 GM/DL (3.29-5.55); ALBUMIN % 58.8 % (55.8-66.1); ALPHA-1-GLOBULIN % 4.2 % (2.9-4.9); ALPHA-1-GLOBULINS 0.32 GM/DL (0.17-0.41); ALPHA-2-GLOBULINS % 9.3 % (7.1-11.8); BETA-1-GLOBULINS 0.53 GM/DL (0.28-0.60); BETA-2-GLOBULINS 0.46 GM/DL (0.19-0.55); BETA-2-GLOBULINS % 6.1 % (3.2-6.5); GAMMA GLOBULIN % 14.6 % (11.1-18.8)
== END ==
LOC: M SFHCPLAZ 14:23
PROVIDERS: ATTEND Nurse Practitioner Adult Health
DX: D46.9 Myelodysplastic syndrome, unspecified (principal); E55.9 Vitamin D deficiency, unspecified; I10 Essential (primary) hypertension; E78.00 Pure hypercholesterolemia, unspecified; Z23 Encounter for immunization
CPT/HCPCS: 36415; 80053; 80061; 82306; 84165; 85027; 90682; G0008; G0463

== ENCOUNTER → 2019-04-11 | Outpatient (CLI) | payer MEDICARE, BC ==
--- NOTE | 2019-04-11 14:20 | REP ---
Duplex extremity venous ultrasound: Left lower extremity History: Pain in the left leg. Rule out DVT. Findings: The deep veins are anechoic and fully compressible from the groin to the popliteal fossa in the left lower extremity. Color flow imaging is homogeneous. Spectral Doppler interrogation demonstrates intact respiratory variation in flow and normal manual augmentation of flow. There is no evidence of deep vein thrombosis. Impression: Negative left lower extremity duplex venous ultrasound. No evidence of deep vein thrombosis. Electronically Signed by Edmar Banegas MD 04/11/2019 02:11 P
--- NOTE | 2019-04-11 14:27 | REP ---
Soft-tissue ultrasound left popliteal fossa: History: Mass in the left posterior knee. Left flank pain. Findings: Scanning in the region of the palpable abnormality demonstrates a elongate cystic structure consistent with a Angel's cyst. This measures 4.5 x 0.9 x 2.0 cm. There is no evidence of aneurysm or mass. 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 Electronically Signed by Edmar Banegas MD 04/11/2019 02:19 P
== END ==
LOC: M RAD 13:33
PROVIDERS: ATTEND Physician Assistant
DX: M71.22 Synovial cyst of popliteal space [Baker], left knee (principal)

== ENCOUNTER → 2019-06-14 | Outpatient (CLI) | payer MEDICARE, BC ==
[~2019-06-14] MED LIST changes: -DIGO0.12 PO; +DIGO0.123 PO; +QVAR80AE8 INH; +VENTAER INH; +VITA-157 PO; +VITA500079 PO; +[UNRECOGNIZED DRUG - CODE] PO
--- NOTE | 2019-06-14 20:33 | REP ---
LEFT KNEE, FIVE VIEWS: Five views of the left knee are performed. No acute fracture or dislocation is seen. There is mild diffuse joint space narrowing and subchondral sclerosis. There is mild spurring of the lateral patellar facet. I do not see a definite joint effusion. There are mild vascular calcifications posteriorly. IMPRESSION: Mild diffuse degenerative changes. Electronically Signed by Reilly Suh MD 06/15/2019 03:32 P
== END ==
LOC: M WUC 19:11
PROVIDERS: ATTEND Physician Assistant
DX: S80.02XA Contusion of left knee, initial encounter (principal); X58.XXXA Exposure to other specified factors, initial encounter; Y92.89 Other specified places as the place of occurrence of the external cause

== ENCOUNTER 2019-06-18 13:46 | Inpatient (IN) | payer MEDICARE, BC ==
[~2019-06-18] VITALS: Ht 162.6 cm; Wt 66.6 kg
[2019-06-18 10:50] VITALS: BP 134/62
[~2019-06-18 13:46] MED LIST changes: -VITA500079 PO
[2019-06-18 16:18] LABS: BASO % 0.3 % (0.0-1.0); EOS # 0.1 10^3/uL (0.0-0.5); EOS % 0.7 % (0.0-3.0); HEMATOCRIT 39.7 % (36.0-47.0); HEMOGLOBIN 12.9 g/dl (12.0-15.5); LYMPH # 1.1 10^3/uL (1.5-5.0); LYMPH % 8.6 % (24.0-44.0); MEAN CORPUSCULAR HEMOGLOBIN 29.3 pg (27.0-33.0); MEAN CORPUSCULAR HGB CONC 32.5 g/dl (32.0-36.5); MEAN CORPUSCULAR VOLUME 90.2 fl (80.0-96.0); MONO # 1.4 10^3/uL (0.0-0.8); MONO % 11.1 % (0.0-5.0); NEUTROPHILS # 9.7 10^3/uL (1.5-8.5); NEUTROPHILS % 78.9 % (36.0-66.0); PLATELET COUNT, AUTOMATED 200 10^3/uL (150-450); WHITE BLOOD COUNT 12.3 10^3/uL (4.0-10.0)
[2019-06-18] MEDS ORDERED: ISOVUE-370 76% 100ML VIAL (Q9967) As Ordered ONE (16:23)
[2019-06-18 16:46] LABS: ALBUMIN 3.5 GM/DL (3.2-5.2); ALT/SGPT 22 U/L (12-78); BLOOD UREA NITROGEN 17 MG/DL (7-18); CALCIUM LEVEL 8.5 MG/DL (8.8-10.2); CARBON DIOXIDE LEVEL 25 MEQ/L (21-32); CHLORIDE LEVEL 104 MEQ/L (98-107); CREATININE FOR GFR 0.77 MG/DL (0.55-1.30); GLOMERULAR FILTRATION RATE > 60.0 (>39); GLUCOSE, FASTING 93 MG/DL (70-100); POTASSIUM SERUM 3.7 MEQ/L (3.5-5.1); SODIUM LEVEL 137 MEQ/L (136-145); TOTAL PROTEIN 6.7 GM/DL (6.4-8.2)
[2019-06-18] MEDS ORDERED: ONDANSETRON 4MG/2ML VIAL (J2405) IV ONE (17:15)
[2019-06-18] MEDS ORDERED: VANCOMYCIN HCL 1,250 MG in D5W 250 ML IV ONE (17:15)
[2019-06-18] MEDS: MORPHINE 2 MG/ML 1ML VIAL (J2270) IV PRN ×2 (17:42→19:39)
[2019-06-18] MEDS ORDERED: VANCOMYCIN HCL 750 MG, VIAL MATE ADAPTER 1 EACH in D5W 250 ML IV ONE (18:00)
[2019-06-18] MEDS ORDERED: VITA500079 PO (18:07)
--- NOTE | 2019-06-18 18:32 | HPEPDOC ---
[facility] Medical History & Physical Date of Admission Jun 18, 2019 Date of Service: Jun 18, 2019 Attending Physician: AMOS LEON MD History and Physical CHIEF COMPLAINT: Sent by [employer] [facility] for cellulitis HISTORY OF PRESENT ILLNESS: 74-year-old female with past medical history of asthma, atrial fibrillation, status post cardiac ablation and hypertension, presents from [facility]'s office for cellulitis. Patient had a mechanical fall where she landed on her buttock 4 days ago, presented to the emergency department at that time for evaluation and was sent home. 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 In the ED, she does report having chills and sweats for the past couple of days, denies fever. She denies any other associated symptoms, such as shortness of breath, chest pain, nausea, vomiting, arm pain or diarrhea. 10 point review of system is negative except for above PAST MEDICAL HISTORY: 1. Atrial fibrillation. 2. Hypertension. 3. Asthma. PAST SURGICAL HISTORY: 1. . 2. Cardiac ablation. SOCIAL HISTORY: Previous smoker, smoked half a pack per day for 20 years. Denies alcohol use. Denies drug use FAMILY HISTORY: Father with heart disease ALLERGIES: Please see below. HOME MEDICATIONS: Please see below. PHYSICAL EXAMINATION: VITAL SIGNS: Please see below. GENERAL: No distress HEENT: Normocephalic, atraumatic, moist mucous membranes NECK: Supple CARDIOVASCULAR EXAMINATION: S1, S2, no murmurs RESPIRATORY EXAMINATION: Clear to auscultation, no wheezing ABDOMINAL EXAMINATION: Soft, nontender, nondistended, positive bowel sounds EXTREMITIES: Range of motion intact SKIN: Left buttock and inner thigh area with significant erythema, swelling and moderate tenderness to palpation NEUROLOGICAL EXAMINATION: Alert and oriented 3, no focal deficits PSYCHIATRIC EXAMINATION: Calm and cooperative LABORATORY DATA: See below. IMAGING: CT abdomen and pelvis showing cellulitis without any collection MICROBIOLOGY: Please see below. ASSESSMENT: 74-year-old female with past medical history of atrial fibrillation, hypertension and asthma is being admitted for cellulitis. PLAN: 1. Left buttock and inner thigh cellulitis. CT negative for collection, continue vancomycin, MRSA PCR ordered, cultures pending. 2. Atrial fibrillation. Status post cardiac ablation, continue Eliquis for anticoagulation and atenolol for rate control. 3. Hypertension. Continue home Norvasc and atenolol DVT prophylaxis: On Eliquis GI prophylaxis: Not needed Vital Signs Vital Signs Date Time Temp Pulse Resp B/P (MAP) Pulse Ox O2 Delivery O2 Flow Rate FiO2 06/18/19 18:17 100.8 74 20 139/63 (88) 96 Room Air Laboratory Data Labs 24H Laboratory Tests 2 06/18/19 16:05: Immature Granulocyte % (Auto) 0.4, Neutrophils (%) (Auto) 78.9H, Lymphocytes (%) (Auto) 8.6L, Monocytes (%) (Auto) 11.1H, Eosinophils (%) (Auto) 0.7, Basophils (%) (Auto) 0.3, Neutrophils # (Auto) 9.7H, Lymphocytes # (Auto) 1.1L, Monocytes # (Auto) 1.4H, Eosinophils # (Auto) 0.1, Basophils # (Auto) 0.0, Nucleated Red Blood Cells % (auto) 0.0 06/18/19 16:06: Anion Gap 8, Glomerular Filtration Rate > 60.0, Calcium Level 8.5L, Total Bilirubin 1.0, Aspartate Amino Transf (AST/SGOT) 17, Alanine Aminotransferase (ALT/SGPT) 22, Alkaline Phosphatase 81, Total Protein 6.7, Albumin 3.5, Albumin/Globulin Ratio 1.09 06/18/19 16:10: POC Glucose (Misc Panel) 99, POC Sodium (Misc Panel) 136, POC Potassium (Misc Panel) 3.6, POC Chloride (Misc Panel) 100, POC Total CO2 (Misc Panel) 24.0, POC Blood Urea Nitrogen (Misc Panel 17, POC Ionized Calcium (Misc Panel) 4.6, POC Creatinine (Misc Panel) 0.7, POC Hematocrit (Misc Panel) 38.0 CBC/BMP Laboratory Tests 06/18/19 16:05 06/18/19 16:06 Microbiology Microbiology 06/18/19 Blood Culture, Received Pending 06/18/19 Blood Culture, Received Pending Home Medications Scheduled Amlodipine Besylate (Amlodipine Besylate) 10 Mg Tab, 10 MG PO DAILY Apixaban (Eliquis) 5 Mg Tab, 5 MG PO BID Atenolol (Atenolol) 25 Mg Tab, 12.5 MG PO BID Beclomethasone Dipropionate (Qvar Redihaler) 80 Mcg/Act Hfa.aeroba, 1 PUFF INH BID Cholecalciferol (Vitamin D3) (Vitamin D3) 5,000 Unit Tab.rapdis, 5,000 UNIT PO DAILY Nizatidine (Nizatidine) 150 Mg Cap, 150 MG PO DAILY Scheduled PRN Albuterol Sulfate (Ventolin Hfa) 18 Gm Hfa.aer.ad, 2 PUFF INH Q4H PRN for SOB/WHEEZING Allergies Coded Allergies: Dust (Verified Allergy, Severe, SOB, 06/18/19) PERFUMES (Verified Allergy, Severe, SOB, 06/18/19) Peanut (Verified Allergy, Severe, ANAPHYLAXIS, 06/18/19) Penicillins (Verified Allergy, Severe, THROAT SWELLING, 06/18/19) Shrimp (Verified Allergy, Severe, ANAPHYLAXIS, 06/18/19) bee venom protein (honey bee) (Verified Allergy, Severe, ANAPHYLAXIS, 06/18/19) ciprofloxacin (Verified Allergy, Severe, THROAT SWELLING, 06/18/19) mold (Verified Allergy, Severe, SOB, 06/18/19) moxifloxacin (Verified Allergy, Severe, THROAT SWELLING, 06/18/19) latex (Verified Allergy, Intermediate, rash, 05/14/19) atorvastatin (Verified Allergy, Unknown, UNKNOWN REACTION, 06/18/19) codeine (Verified Allergy, Unknown, UNKNOWN REACTION, 06/18/19) nitrofurantoin (Verified Allergy, Unknown, UNKNOWN REACTION, 06/18/19) pitavastatin (Verified Allergy, Unknown, UNKNOWN REACTION, 06/18/19) pollen extracts (Verified Allergy, Unknown, 05/14/19) pravastatin (Verified Allergy, Unknown, UNKNOWN REACTION, 06/18/19) procaine (Verified Allergy, Unknown, UNKNOWN REACTION, 06/18/19) rosuvastatin (Verified Allergy, Unknown, UNKNOWN REACTION, 06/18/19) Sulfa (Sulfonamide Antibiotics) (Verified Adverse Reaction, Intermediate, N/V, 06/18/19) A-FIB/CHADSVASC A-FIB History Current/History of A-Fib/PAF?: Yes Current PO Anticoag Therapy: Yes AMOS LEON MD Jun 18, 2019 18:32
[2019-06-18] MEDS ORDERED: VANCOMYCIN HCL 500 MG in D5W MINI-BAG PLUS 100 ML IV ONE (19:00)
--- NOTE | 2019-06-18 19:36 | PHACANCOPD ---
PHARMACY VANCOMYCIN DOSING Pt Demographics Demographics Patient Age:74 , Weight:67.300 , Gender: female Adjusted Body Weight Date: 06/18/19, Adjusted Body Weight: Kg Events Past 24 Hours Events Past 24 Hours: YES: Fever, Elevation in WBC; NO: Dialysis, Diuretic Therapy, Change in CrCl, Pending Diagnostics, Pending Procedures, Other Vancomycin Vancomycin indication: SSTI Vancomycin Target Ranges: 10-20 mcg/ml Vancomycin Load Y/N: Yes Load Dose Date Time Vancomycin Load Dose: 1.25 grams Date: 06/18/19 Time: 1800 Vancomycin Dose Date: 06/18/19. Current Vancomycin Dose: [ 1 gram q12h ] Intermittent Dosing?: No Labs Labs Vital Signs Label Value Date Time Patient Temperature 98.6 degrees F 06/18/19 1347 Temperature Source Temporal 06/18/19 1347 Patient Temperature 100.8 degrees F 06/18/19 1817 Temperature Source Oral 06/18/19 181 Blood Pressure Assessment 112/59 (76) 06/18/19 1347 Location Left Arm Source Automatic Cuff (NIBP) Position Standing Blood Pressure Assessment 139/63 (88) 06/18/19 1817 Location Right Arm Source Automatic Cuff (NIBP) Position Supine Pulse 83 06/18/19 1347 Pulse 74 06/18/19 1817 Respiratory Rate 20 bpm 06/18/19 1347 Respiratory Rate 20 bpm 06/18/19 1817 Item Value Date Time White Blood Count 12.3 10^3/uL H 06/18/19 1605 Creatinine 0.77 MG/DL 06/18/19 1606 Glomerular Filtration Rate > 60.0 06/18/19 1606 Micro Microbiology 06/18/19 Blood Culture, Received Pending 06/18/19 Blood Culture, Received Pending Creatinine Clearance Date:06/18/19. Creatinine Clearance: [ 58.5 mL/min ]. Assessment and Plan Maintaining Current Dose?: Yes Reason for dose change: No Dose Change Pharmacist Note Pharmacist Note Date: 06/18/19. Pharmacist note: Patient is a 74 year old female who presented to the [facility] emergency department after a mechanical fall and was found to have swelling and redness of the left buttock and inner thigh. She was found to have an elevated white blood cell count with a fever. She was placed on antibiotic therapy consisting vancomycin. Ms. Johnson has no previous vancomycin therapy at [facility] and has decent renal function for her age, so in addition to the 1.25 gram loading dose ordered per the ED physician, she was scheduled a maintenance dose of 1 gram every 12 hours starting tomorrow morning @0600. A trough was sc heduled prior to the third dose, with a goal of 10-20mcg/dL. We will continue to monitor and make adjustments as needed. [facility] Jun 18, 2019 19:36
[2019-06-18] MEDS ORDERED: NON-FORMULARY 1 EA EA INH SCH (21:00)
[2019-06-18] MEDS: APIXABAN 5 MG TAB (ELIQUIS) PO SCH (21:00)
[2019-06-18 22:50] VITALS: BP 134/62
[2019-06-19] MEDS: ATENOLOL 12.5MG PER 1/2 TABLET PO SCH ×3 (00:03→22:01)
[2019-06-19 06:00] VITALS: BP 119/57
[2019-06-19] MEDS: VANCOMYCIN HCL 1,000 MG, VIAL MATE ADAPTER 1 EACH in D5W 250 ML IV SCH ×2 (06:10→18:15)
[2019-06-19 06:50] LABS: HEMATOCRIT 37.4 % (36.0-47.0); HEMOGLOBIN 12.1 g/dl (12.0-15.5); MEAN CORPUSCULAR HEMOGLOBIN 29.1 pg (27.0-33.0); MEAN CORPUSCULAR HGB CONC 32.4 g/dl (32.0-36.5); MEAN CORPUSCULAR VOLUME 89.9 fl (80.0-96.0); PLATELET COUNT, AUTOMATED 195 10^3/uL (150-450); RED BLOOD COUNT 4.16 10^6/uL (4.00-5.40); WHITE BLOOD COUNT 12.5 10^3/uL (4.0-10.0)
[2019-06-19 07:15] LABS: ALBUMIN 2.9 GM/DL (3.2-5.2); ALT/SGPT 22 U/L (12-78); BLOOD UREA NITROGEN 10 MG/DL (7-18); CALCIUM LEVEL 8.2 MG/DL (8.8-10.2); CARBON DIOXIDE LEVEL 24 MEQ/L (21-32); CHLORIDE LEVEL 105 MEQ/L (98-107); CREATININE FOR GFR 0.74 MG/DL (0.55-1.30); GLOMERULAR FILTRATION RATE > 60.0 (>39); GLUCOSE, FASTING 115 MG/DL (70-100); MAGNESIUM LEVEL 1.9 MG/DL (1.8-2.4); POTASSIUM SERUM 3.7 MEQ/L (3.5-5.1); SODIUM LEVEL 137 MEQ/L (136-145); TOTAL PROTEIN 6.7 GM/DL (6.4-8.2)
--- NOTE | 2019-06-19 07:29 | REP ---
CT ABDOMEN AND PELVIS WITH IV CONTRAST: TECHNIQUE: Axial contrast enhanced images from the lung bases to the pubic symphysis using 100 mL Isovue 370 intravenous contrast material with multiplanar reformations. COMPARISON: CT chest 10/19/2017 Visualized lung bases demonstrate no evidence of acute infiltrate. The liver demonstrates two adjacent enhancing nodules in the right lobe, consistent with hemangioma. They are unchanged since the prior CT scan. Spleen, adrenals, pancreas are unremarkable. There is no hydronephrosis. Subcentimeter hyperdensity in the upper pole of the right kidney probably represents a small cyst. There is atherosclerotic calcification of the abdominal aorta without aneurysm. There is no adenopathy. There is no free air or free fluid. There is no bowel wall thickening. No anterior abdominal defect is seen. No pelvic mass is seen. The patient has had a hysterectomy. Urinary bladder is mildly distended and grossly unremarkable. There is left perianal inflammatory change in the gluteal soft-tissues and perianal soft-tissues. No discrete abscess collection is seen. There are degenerative changes of the spine. IMPRESSION: Ill-defined inflammation in the soft-tissue in the left perianal region. No abscess is seen. No acute intraabdominal pathology. Electronically Signed by Reilly Suh MD 06/19/2019 05:33 P
[2019-06-19] MEDS: APIXABAN 5 MG TAB (ELIQUIS) PO SCH ×2 (09:22→22:01)
[2019-06-19] MEDS: amLODIPine 10 MG TAB PO SCH (09:23)
[2019-06-19] MEDS ORDERED: PERCOCET 5MG/325MG TAB PO PRN (12:45)
[2019-06-19 14:00] VITALS: BP 120/62
[2019-06-19] MEDS: PERCOCET 5MG/325MG TAB PO PRN ×2 (14:27→22:55)
[2019-06-19 21:22] VITALS: BP 142/68
--- NOTE | 2019-06-19 22:52 | IPNPDOC ---
Date Seen The patient was seen on 06/19/19. Progress Note HISTORY OF PRESENT ILLNESS: 74-year-old female with past medical history of asthma, atrial fibrillation, status post cardiac ablation and hypertension, presents from warp tier[facility] office for cellulitis. Patient had a mechanical fall where she landed on her buttock 4 days ago, presented to the emergency department at that time for evaluation and was sent home. She reports redness and pain in the left buttock and vaginal area, worsening over the past couple of days, went to the [facility] thinking it was a vaginal issue, but was told that it is not a AUTO BODY REPAIRMAN issue and she should go to the hospital for cellulitis. In the ED, she does report having chills and sweats for the past couple of days, denies fever. She denies any other associated symptoms, such as shortness of breath, chest pain, nausea, vomiting, arm pain or diarrhea. 06/19/19 She continues to have significant pain at the site of infection, no other complaints, pain adequately controlled. She denies any chills, sweats, CP, N/ V/D/ or abdominal pain. 10 point review of system is negative except for above HOME MEDICATIONS: Please see below. PHYSICAL EXAMINATION: VITAL SIGNS: Please see below. GENERAL: No distress HEENT: Normocephalic, atraumatic, moist mucous membranes NECK: Supple CARDIOVASCULAR EXAMINATION: S1, S2, no murmurs RESPIRATORY EXAMINATION: Clear to auscultation, no wheezing ABDOMINAL EXAMINATION: Soft, nontender, nondistended, positive bowel sounds EXTREMITIES: Range of motion intact SKIN: Left buttock and inner thigh area with significant erythema, swelling and moderate tenderness to palpation NEUROLOGICAL EXAMINATION: Alert and oriented 3, no focal deficits PSYCHIATRIC EXAMINATION: Calm and cooperative LABORATORY DATA: See below. IMAGING: CT abdomen and pelvis showing cellulitis without any collection MICROBIOLOGY: Please see below. ASSESSMENT: 74-year-old female with past medical history of atrial fibrillation, hypertension and asthma is being admitted for cellulitis. PLAN: 1. Left buttock and inner thigh cellulitis. CT negative for collection, continue vancomycin for now, MRSA PCR negative, cultures pending. 2. Atrial fibrillation. Status post cardiac ablation, continue Eliquis for anticoagulation and atenolol for rate control. 3. Hypertension. Continue home Norvasc and atenolol 4. GERD - Protonix DVT prophylaxis: On Eliquis GI prophylaxis: PPI VS, I&O, 24H, Fishbone Vital Signs/I&O Vital Signs Date Time Temp Pulse Resp B/P (MAP) Pulse Ox O2 Delivery O2 Flow Rate FiO2 06/19/19 22:01 73 142/68 06/19/19 21:22 99.6 18 95 Room Air I&O- Last 24 Hours up to 6 AM 06/19/19 06:00 Intake Total 0 ml Balance 0 ml Laboratory Data 24H LABS Laboratory Tests 2 06/19/19 06:26: Methicillin-Resist S.aureus DNA PCR NOT DETECTED 06/19/19 06:35: Nucleated Red Blood Cells % (auto) 0.0, Anion Gap 8, Glomerular Filtration Rate > 60.0, Calcium Level 8.2L, Magnesium Level 1.9, Total Bilirubin 1.0, Aspartate Amino Transf (AST/SGOT) 14, Alanine Aminotransferase (ALT/SGPT) 22, Alkaline Phosphatase 71, Total Protein 6.7, Albumin 2.9L, Albumin/Globulin Ratio 0.76L, Procalcitonin 0.36 06/19/19 17:02: Vancomycin Level Trough 9.7L CBC/BMP Laboratory Tests 06/19/19 06:35 Microbiology Microbiology 06/18/19 Blood Culture - Preliminary, Resulted No growth after 24 hours . All specim... 06/18/19 Blood Culture - Preliminary, Resulted No growth after 24 hours . All specim... AMOS LOEN MD Jun 19, 2019 22:52
[2019-06-20 05:48] VITALS: BP 120/58
[2019-06-20] MEDS: VANCOMYCIN HCL 1,000 MG, VIAL MATE ADAPTER 1 EACH in D5W 250 ML IV SCH ×2 (06:39→18:21)
[2019-06-20 06:49] LABS: HEMATOCRIT 36.2 % (36.0-47.0); HEMOGLOBIN 11.8 g/dl (12.0-15.5); MEAN CORPUSCULAR HEMOGLOBIN 29.5 pg (27.0-33.0); MEAN CORPUSCULAR HGB CONC 32.6 g/dl (32.0-36.5); MEAN CORPUSCULAR VOLUME 90.5 fl (80.0-96.0); PLATELET COUNT, AUTOMATED 193 10^3/uL (150-450); WHITE BLOOD COUNT 15.1 10^3/uL (4.0-10.0)
[2019-06-20 07:20] LABS: BLOOD UREA NITROGEN 23 MG/DL (7-18); CALCIUM LEVEL 8.5 MG/DL (8.8-10.2); CARBON DIOXIDE LEVEL 24 MEQ/L (21-32); CHLORIDE LEVEL 104 MEQ/L (98-107); GLOMERULAR FILTRATION RATE > 60.0 (>39); GLUCOSE, FASTING 128 MG/DL (70-100); PHOSPHORUS LEVEL 3.2 MG/DL (2.5-4.9); POTASSIUM SERUM 3.3 MEQ/L (3.5-5.1); SODIUM LEVEL 137 MEQ/L (136-145)
[2019-06-20] MEDS: APIXABAN 5 MG TAB (ELIQUIS) PO SCH ×2 (09:55→20:31)
[2019-06-20] MEDS: amLODIPine 10 MG TAB PO SCH (09:55)
[2019-06-20] MEDS: ATENOLOL 12.5MG PER 1/2 TABLET PO SCH ×2 (09:55→20:31)
[2019-06-20] MEDS: PANTOPRAZOLE 40MG TAB (PROTONIX) PO SCH (09:55)
[2019-06-20] MEDS ORDERED: ONDANSETRON 4MG/2ML VIAL (J2405) IV PRN (11:45)
[2019-06-20] MEDS: ACETAMINOPHEN TAB 650MG DOSE (2X325MG) PO PRN ×2 (12:58→20:29)
[2019-06-20] MEDS: MIRALAX *UNIT DOSE* 17GM PACKET PO SCH (12:58)
[2019-06-20] MEDS: POTASSIUM CHLORIDE 10 MEQ SR TABLET PO SCH ×2 (12:59→17:29)
[2019-06-20 14:00] VITALS: BP 117/71
[2019-06-20] MEDS: MEROPENEM INJ 1 GM in IV 1 EA IV SCH ×2 (14:09→20:31)
[2019-06-20] MEDS: NIZATIDINE 150 MG PO SCH (15:51)
--- NOTE | 2019-06-20 17:38 | IPNPDOC ---
Date Seen The patient was seen on 06/20/19. Progress Note HISTORY OF PRESENT ILLNESS: 74-year-old female with past medical history of asthma, atrial fibrillation, status post cardiac ablation and hypertension, presents from [facility] office for cellulitis. Patient had a mechanical fall where she landed on her buttock 4 days ago, presented to the emergency department at that time for evaluation and was sent home. She reports redness and pain in the left buttock and vaginal area, worsening over the past couple of days, went to the [facility] hurricane [facility] thinking it was a vaginal issue, but was told that it is not a SENIOR INTERNATIONAL TAX MANAGER issue and she should go to the hospital for cellulitis. In the ED, she does report having chills and sweats for the past couple of days, denies fever. She denies any other associated symptoms, such as shortness of breath, chest pain, nausea, vomiting, arm pain or diarrhea. 06/19/19 She continues to have significant pain at the site of infection, no other complaints, pain adequately controlled. She denies any chills, sweats, CP, N/ V/D/ or abdominal pain. 06/20/19 Patient continues to have pain at infection site and reports bloody/purulent drainage since last night. She also reports chills, no other complaints. She denies any SOB, CP, N/V/D or abdominal pain. 10 point review of system is negative except for above HOME MEDICATIONS: Please see below. PHYSICAL EXAMINATION: VITAL SIGNS: Please see below. GENERAL: No distress HEENT: Normocephalic, atraumatic, moist mucous membranes NECK: Supple CARDIOVASCULAR EXAMINATION: S1, S2, no murmurs RESPIRATORY EXAMINATION: Clear to auscultation, no wheezing ABDOMINAL EXAMINATION: Soft, nontender, nondistended, positive bowel sounds EXTREMITIES: Range of motion intact SKIN: Left buttock and inner thigh area with improvement in erythema but there is now a central area of swelling with bloody/purulent drainage and exquisite tenderness to palpation. NEUROLOGICAL EXAMINATION: Alert and oriented 3, no focal deficits PSYCHIATRIC EXAMINATION: Calm and cooperative LABORATORY DATA: See below. IMAGING: CT abdomen and pelvis showing cellulitis without any collection MICROBIOLOGY: Please see below. ASSESSMENT: 74-year-old female with past medical history of atrial fibrillation, hypertension and asthma is being admitted for cellulitis. PLAN: 1. Left buttock and inner thigh cellulitis. now with abscess formation, initial CT was negative for fluid collection, consulted general Surgery (Dr. Perera) for I&D, continue vancomycin, added Merrem as patient appears to be worsening clinically along with increasing WBC count, cultures pending. 2. Atrial fibrillation. Status post cardiac ablation, continue Eliquis for anticoagulation and atenolol for rate control. 3. Hypertension. Continue home Norvasc and atenolol 4. GERD - Protonix DVT prophylaxis: On Eliquis GI prophylaxis: PPI VS, I&O, 24H, Fishbone Vital Signs/I&O Vital Signs Date Time Temp Pulse Resp B/P (MAP) Pulse Ox O2 Delivery O2 Flow Rate FiO2 06/20/19 09:55 63 116/60 06/20/19 05:48 97.4 18 95 Room Air I&O- Last 24 Hours up to 6 AM 06/20/19 06:00 Intake Total 1680 ml Output Total 400 ml Balance 1280 ml Laboratory Data 24H LABS Laboratory Tests 2 06/20/19 06:36: Nucleated Red Blood Cells % (auto) 0.0, Anion Gap 9, Glomerular Filtration Rate > 60.0, Calcium Level 8.5L, Phosphorus Level 3.2 06/20/19 17:07: CBC/BMP Laboratory Tests 06/20/19 06:36 Microbiology Microbiology 06/18/19 Blood Culture - Preliminary, Resulted No Growth after 48 hours. All Specime... 06/18/19 Blood Culture - Preliminary, Resulted No Growth after 48 hours. All Specime... AMOS LEON MD Jun 20, 2019 17:38
[2019-06-20 20:11] VITALS: BP 106/76
[2019-06-20] MEDS: BECLOMETHASONE INH SCH (21:00)
[2019-06-21] MEDS ORDERED: LIDOCAINE 1% SDV INJ 30 ML VIAL SC SCH
[2019-06-21] MEDS: MEROPENEM INJ 1 GM in IV 1 EA IV SCH ×3 (04:58→23:02)
[2019-06-21] MEDS: VANCOMYCIN HCL 1,000 MG, VIAL MATE ADAPTER 1 EACH in D5W 250 ML IV SCH ×2 (05:46→18:43)
[2019-06-21 05:51] VITALS: BP 97/43
[2019-06-21 06:59] LABS: HEMATOCRIT 33.8 % (36.0-47.0); HEMOGLOBIN 11.3 g/dl (12.0-15.5); MEAN CORPUSCULAR HEMOGLOBIN 30.1 pg (27.0-33.0); MEAN CORPUSCULAR HGB CONC 33.4 g/dl (32.0-36.5); MEAN CORPUSCULAR VOLUME 90.1 fl (80.0-96.0); PLATELET COUNT, AUTOMATED 200 10^3/uL (150-450); RED BLOOD COUNT 3.75 10^6/uL (4.00-5.40); WHITE BLOOD COUNT 10.5 10^3/uL (4.0-10.0)
[2019-06-21 07:21] LABS: BLOOD UREA NITROGEN 16 MG/DL (7-18); CALCIUM LEVEL 8.3 MG/DL (8.8-10.2); CARBON DIOXIDE LEVEL 25 MEQ/L (21-32); CHLORIDE LEVEL 107 MEQ/L (98-107); CREATININE FOR GFR 0.67 MG/DL (0.55-1.30); GLOMERULAR FILTRATION RATE > 60.0 (>39); GLUCOSE, FASTING 121 MG/DL (70-100); SODIUM LEVEL 139 MEQ/L (136-145)
[2019-06-21] MEDS: BECLOMETHASONE INH SCH ×3 (07:35→23:03)
[2019-06-21] MEDS: PANTOPRAZOLE 40MG TAB (PROTONIX) PO SCH (08:45)
[2019-06-21] MEDS: APIXABAN 5 MG TAB (ELIQUIS) PO SCH ×2 (08:45→23:00)
[2019-06-21] MEDS: NIZATIDINE 150 MG PO SCH (08:46)
[2019-06-21] MEDS: MIRALAX *UNIT DOSE* 17GM PACKET PO SCH (08:58)
[2019-06-21] MEDS: amLODIPine 10 MG TAB PO SCH (08:59)
[2019-06-21] MEDS: ATENOLOL 12.5MG PER 1/2 TABLET PO SCH ×2 (08:59→23:01)
--- NOTE | 2019-06-21 12:46 | IPNPDOC ---
Date Seen The patient was seen on 06/21/19. Progress Note HISTORY OF PRESENT ILLNESS: 74-year-old female with past medical history of asthma, atrial fibrillation, status post cardiac ablation and hypertension, presents from [facility] office for cellulitis. Patient had a mechanical fall where she landed on her buttock 4 days ago, presented to the emergency department at that time for evaluation and was sent home. She reports redness and pain in the left buttock and vaginal area, worsening over the past couple of days, went to the regional driver thinking it was a vaginal issue, but was told that it is not a MARKET RELATIONSHIP MANAGER issue and she should go to the hospital for cellulitis. In the ED, she does report having chills and sweats for the past couple of days, denies fever. She denies any other associated symptoms, such as shortness of breath, chest pain, nausea, vomiting, arm pain or diarrhea. 06/19/19 She continues to have significant pain at the site of infection, no other complaints, pain adequately controlled. She denies any chills, sweats, CP, N/ V/D/ or abdominal pain. 06/20/19 Patient continues to have pain at infection site and reports bloody/purulent drainage since last night. She also reports chills, no other complaints. She denies any SOB, CP, N/V/D or abdominal pain. 06/21/19 Patient continues to have bloody/purulent discharge along with moderate to severe pain, no other complaints. She was noted by surgery and scheduled for bedside I&D later today. 10 point review of system is negative except for above HOME MEDICATIONS: Please see below. PHYSICAL EXAMINATION: VITAL SIGNS: Please see below. GENERAL: No distress HEENT: Normocephalic, atraumatic, moist mucous membranes NECK: Supple CARDIOVASCULAR EXAMINATION: S1, S2, no murmurs RESPIRATORY EXAMINATION: Clear to auscultation, no wheezing ABDOMINAL EXAMINATION: Soft, nontender, nondistended, positive bowel sounds EXTREMITIES: Range of motion intact SKIN: Left inner thigh with persistent swelling and bloody/purulent drainage in moderate to severe tenderness to palpation. NEUROLOGICAL EXAMINATION: Alert and oriented 3, no focal deficits PSYCHIATRIC EXAMINATION: Calm and cooperative LABORATORY DATA: See below. IMAGING: CT abdomen and pelvis showing cellulitis without any collection MICROBIOLOGY: Please see below. ASSESSMENT: 74-year-old female with past medical history of atrial fibrillation, hypertension and asthma is being admitted for cellulitis. PLAN: 1. Left buttock and inner thigh cellulitis. now with abscess formation, initial CT was negative for fluid collection, consulted general Surgery (Dr. Perera), plan for bedside I&D later today, cherri nue vancomycin and Merrem, blood cultures pending, will obtain cultures from I&D to optimize antibiotic selection. 2. Atrial fibrillation. Status post cardiac ablation, continue Eliquis for anticoagulation and atenolol for rate control. 3. Hypertension. Continue home Norvasc and atenolol 4. GERD - Protonix DVT prophylaxis: On Eliquis GI prophylaxis: PPI VS, I&O, 24H, Fishbone Vital Signs/I&O Vital Signs Date Time Temp Pulse Resp B/P (MAP) Pulse Ox O2 Delivery O2 Flow Rate FiO2 06/21/19 08:59 78 97/43 06/21/19 05:51 99.6 18 97 Room Air I&O- Last 24 Hours up to 6 AM 06/21/19 06:00 Intake Total 1530 ml Output Total 0 ml Balance 1530 ml Laboratory Data 24H LABS Laboratory Tests 2 06/20/19 17:07: Vancomycin Level Trough 16.4 06/21/19 06:33: Nucleated Red Blood Cells % (auto) 0.0, Anion Gap 7L, Glomerular Filtration Rate > 60.0, Calcium Level 8.3L CBC/BMP Laboratory Tests 06/21/19 06:33 Microbiology Microbiology 06/18/19 Blood Culture - Preliminary, Resulted No Growth after 48 hours. All Specime... 06/18/19 Blood Culture - Preliminary, Resulted No Growth after 48 hours. All Specime... AMOS LEON MD Jun 21, 2019 12:45
[2019-06-21 14:00] VITALS: BP 98/45
--- NOTE | 2019-06-21 18:36 | IPN ---
DATE: 06/21/2019 HISTORY: Patient has a left-sided perirectal abscess that has started to drain on its own but looks like it will benefit from additional drainage. She is now for incision and drainage. PROCEDURE: The patient was placed in a left lateral decubitus position. The perineum was prepped with Betadine. Local anesthesia was achieved around the area of spontaneous drainage with approximately 10 mL of 1% lidocaine. After allowing several minutes for this to take effect an incision was made at the edge of the roughly 1 cm skin opening and an approximately 1 cm V-shaped excision at the lateral aspect of this was performed of the skin and the immediate subcutaneous tissues. Probing of the wound showed that the subcutaneous pocket extended perhaps 4 cm anteriorly toward the vagina, several centimeters medially toward the rectum, and several centimeters deep and lateral. After probing there was a minimal increase in the amount of drainage noted. A Betadine gauze wick was inserted. A bulky bandage was applied. The patient tolerated the procedure fairly well though she was quite uncomfortable with the probing. She was counseled regarding the plan for wound care. VITALIY
--- NOTE | 2019-06-21 18:44 | CR ---
DATE OF CONSULTATION: REASON CONSULTATION: Perineal abscess. HISTORY OF PRESENT ILLNESS: The patient is a 74-year-old woman who was admitted on June 18 by the hospitalist service for management of an infection in the perineum. The patient reported that she had suffered a fall from her back porch or deck approximately on June 14. She reports that this would have been a fall of perhaps 4 feet. She indicates she landed on some flower pots when she landed. She said she was wearing blue jeans at the time. She does not recall having any sort of puncture through her jeans but had a lot of soreness in the perineum. She noted swelling over the ensuing several days, involving the area of the vagina. She was seen by her american indian policy specialist on June 18 and then referred to the emergency department for possible admission based on the finding of a large area of swelling and marked tenderness in the left perirectal area. She has been on antibiotics. Apparently she had a CT scan at the time of admission that did not show a definite fluid collection. Since admission, she has noticed increasing pain, and there is concern for an abscess, and I am consulted. MEDICATIONS: The patient's current medications include Norvasc, Eliquis, atenolol, vancomycin, Qvar, Tylenol, Percocet as needed, Protonix, MiraLax, Zofran as needed, meropenem, and nizatidine. ALLERGIES: Multiple and are listed on her chart. PAST SURGICAL HISTORY: Significant for: 1. Appendectomy. 2. She has had a section and subsequently a hysterectomy. 3. She had a cardiac ablation for atrial fibrillation in the spring. 4. She has had surgery for a right toe. MEDICAL HISTORY: Significant for: 1. Atrial fibrillation. She remains on anticoagulation. 2. She has hypertension. 3. History of asthma. The patient reports no prior history of any sort of perirectal or perineal infections. FAMILY HISTORY: The patient's father apparently has a history of heart disease. SOCIAL HISTORY: She is a former smoker who smoked approximately a half a pack a day for 20 years. She denies any alcohol use. REVIEW OF SYSTEMS: Reveals no history of chest pain, palpitations, or shortness of breath. She has no cough, wheezing, or sputum production. She denies any rectal bleeding. She denies any bone or joint issues. She has had no history of deep vein thrombosis (DVT) or pulmonary embolus. She does report having had some chills and sweats over the last couple of days before coming to the emergency department. PHYSICAL EXAMINATION: Reveals a pleasant older woman, lying quietly on the hospital bed. She is alert and oriented. Heart exam reveals a regular rhythm. Lungs are clear. The abdomen is soft and nontender. Examination of the perineum reveals a marked area of redness and swelling in the left medial buttock. There is a small open area, which is draining some bloody purulent-appearing fluid. There is exquisite tenderness over the central area of this infection. This is located right about at the lateral midline of the rectum. The swelling and redness extend anteriorly to the posterior aspect of the vagina and posteriorly approximately to the posterior midline. There is no inflammation identified on the right-hand side. LABORATORY STUDIES: Today show white count of 15,000, hemoglobin of 12, hematocrit of 36, and platelet count of 193,000. Chemistry profile shows sodium 137, potassium 3.3, chloride 106, CO2 of 24, BUN of 23, creatinine 0.7, and glucose of 128. Liver function tests on June 19 were normal. IMPRESSION: 1. Abscess of the perineum in the distribution that is most consistent with a perirectal abscess. The right side is uninvolved. I did ask her if there was a chance that she had had a puncture wound in this area associated with her fall, and she does not believe there was any sort of penetrating injury. It may be that this represents a coincidental occurrence of a routine perirectal abscess at the same time as her fall. I suppose it is possible that she had developed a hematoma in this area from her fall and this became secondarily infected. RECOMMENDATIONS: The area seems to be starting to drain on its own at this point. There is an area of skin breakdown about a centimeter in diameter, which appears to be seeping. The area is exquisitely tender. I have recommended that we perform an incision and drainage of this in the morning. I believe we can accomplish this at the bedside with local. She is agreeable with this plan. She should remain on her antibiotics, and I will see her in the morning for a drainage. [facility] CENTERAmanda
[2019-06-21 20:23] VITALS: BP 99/54
[2019-06-21 22:13] VITALS: BP 94/55
[2019-06-21] MEDS ORDERED: HALOPERIDOL 5 MG/ML VIAL (J1630) IV PRN (22:30)
[2019-06-21] MEDS ORDERED: HALOPERIDOL 5 MG/ML VIAL (J1630) IV ONE (22:30)
[2019-06-21] MEDS ORDERED: NS 1,000 ML IV ONE (22:30)
[2019-06-22 00:20] LABS: BLOOD UREA NITROGEN 12 MG/DL (7-18); CARBON DIOXIDE LEVEL 26 MEQ/L (21-32); CHLORIDE LEVEL 108 MEQ/L (98-107); CREATININE FOR GFR 0.65 MG/DL (0.55-1.30); GLOMERULAR FILTRATION RATE > 60.0 (>39); GLUCOSE, FASTING 92 MG/DL (70-100); MAGNESIUM LEVEL 1.8 MG/DL (1.8-2.4); POTASSIUM SERUM 3.7 MEQ/L (3.5-5.1); SODIUM LEVEL 142 MEQ/L (136-145)
[2019-06-22 00:24] VITALS: BP 125/64
[2019-06-22 00:29] LABS: HEMATOCRIT 34.7 % (36.0-47.0); HEMOGLOBIN 11.3 g/dl (12.0-15.5); MEAN CORPUSCULAR HGB CONC 32.6 g/dl (32.0-36.5); PLATELET COUNT, AUTOMATED 214 10^3/uL (150-450); RED BLOOD COUNT 3.77 10^6/uL (4.00-5.40)
[2019-06-22] MEDS: MEROPENEM INJ 1 GM in IV 1 EA IV SCH ×3 (04:27→21:52)
[2019-06-22 06:00] VITALS: BP 113/60
[2019-06-22] MEDS: VANCOMYCIN HCL 1,000 MG, VIAL MATE ADAPTER 1 EACH in D5W 250 ML IV SCH ×2 (06:21→18:05)
[2019-06-22 06:39] LABS: HEMATOCRIT 36.6 % (36.0-47.0); HEMOGLOBIN 11.8 g/dl (12.0-15.5); MEAN CORPUSCULAR HEMOGLOBIN 29.6 pg (27.0-33.0); MEAN CORPUSCULAR HGB CONC 32.2 g/dl (32.0-36.5); MEAN CORPUSCULAR VOLUME 91.7 fl (80.0-96.0); PLATELET COUNT, AUTOMATED 238 10^3/uL (150-450); RED BLOOD COUNT 3.99 10^6/uL (4.00-5.40); WHITE BLOOD COUNT 8.3 10^3/uL (4.0-10.0)
[2019-06-22 07:06] LABS: BLOOD UREA NITROGEN 8 MG/DL (7-18); CREATININE FOR GFR 0.61 MG/DL (0.55-1.30); GLUCOSE, FASTING 98 MG/DL (70-100)
[2019-06-22 07:07] LABS: CALCIUM LEVEL 8.6 MG/DL (8.8-10.2); CARBON DIOXIDE LEVEL 26 MEQ/L (21-32); CHLORIDE LEVEL 108 MEQ/L (98-107); GLOMERULAR FILTRATION RATE > 60.0 (>39); POTASSIUM SERUM 3.8 MEQ/L (3.5-5.1); SODIUM LEVEL 140 MEQ/L (136-145)
[2019-06-22] MEDS: BECLOMETHASONE INH SCH ×2 (08:18→21:00)
[2019-06-22] MEDS: ATENOLOL 12.5MG PER 1/2 TABLET PO SCH ×2 (09:00→21:00)
[2019-06-22] MEDS: amLODIPine 10 MG TAB PO SCH (09:00)
[2019-06-22] MEDS: MIRALAX *UNIT DOSE* 17GM PACKET PO SCH (09:12)
[2019-06-22] MEDS: APIXABAN 5 MG TAB (ELIQUIS) PO SCH ×2 (09:14→21:52)
[2019-06-22] MEDS: PANTOPRAZOLE 40MG TAB (PROTONIX) PO SCH (09:14)
[2019-06-22] MEDS: NIZATIDINE 150 MG PO SCH (09:17)
--- NOTE | 2019-06-22 12:54 | IPNPDOC ---
Text Note Date of Service The patient was seen on 06/22/19. NOTE Perineal abscess/perirectal abscess I examined her wound. There is a persistent area of subcutaneous induration roughly 3 x 3 cms, overlying skin with mild erythema ?bruising. No extensive cellulitis. There is about a 1 cm hole at the center, small amount of purulent drainage noted on palpation. I probed the wound and it is about 2 cms deep medial and superior. Seems to be adequately drained Plan: OK to go home on oral antibiotics warm shower/sitz bath as previously instructed by Dr. Perera Follow up in clinic next week with Dr. Perera VS,Elizabet, I+O VS, Elizabet I+O Laboratory Tests 06/21/19 23:42 06/22/19 06:03 Vital Signs Date Time Temp Pulse Resp B/P (MAP) Pulse Ox O2 Delivery O2 Flow Rate FiO2 06/22/19 09:00 60 113/60 06/22/19 06:00 98.7 18 94 Room Air I&O- Last 24 Hours up to 6 AM 06/22/19 06:00 Intake Total 2410 ml Balance 2410 ml LAURA MITCHELL MD Jun 22, 2019 12:22
[2019-06-22 14:29] VITALS: BP 102/60
--- NOTE | 2019-06-22 15:02 | IPNPDOC ---
Date Seen The patient was seen on 06/22/19. Progress Note HISTORY OF PRESENT ILLNESS: 74-year-old female with past medical history of asthma, atrial fibrillation, status post cardiac ablation and hypertension, presents from [facility] office for cellulitis. Patient had a mechanical fall where she landed on her buttock 4 days ago, presented to the emergency department at that time for evaluation and was sent home. She reports redness and pain in the left buttock and vaginal area, worsening over the past couple of days, went to the pastry chef thinking it was a vaginal issue, but was told that it is not a OB TECH issue and she should go to the hospital for cellulitis. In the ED, she does report having chills and sweats for the past couple of days, denies fever. She denies any other associated symptoms, such as shortness of breath, chest pain, nausea, vomiting, arm pain or diarrhea. 06/19/19 She continues to have significant pain at the site of infection, no other complaints, pain adequately controlled. She denies any chills, sweats, CP, N/ V/D/ or abdominal pain. 06/20/19 Patient continues to have pain at infection site and reports bloody/purulent drainage since last night. She also reports chills, no other complaints. She denies any SOB, CP, N/V/D or abdominal pain. 06/21/19 Patient continues to have bloody/purulent discharge along with moderate to severe pain, no other complaints. She was noted by surgery and scheduled for bedside I&D later today. 06/22/19 Patient underwent I&D yesterday with postprocedure fever and delirium, requiring Haldol and IV fluids. Seen in the morning, at baseline, without any complaints, significant improvement in pain around abscess. She denies any shortness of breath, chest pain, nausea, vomiting, diarrhea or chills. 10 point review of system is negative except for above HOME MEDICATIONS: Please see below. PHYSICAL EXAMINATION: VITAL SIGNS: Please see below. GENERAL: No distress HEENT: Normocephalic, atraumatic, moist mucous membranes NECK: Supple CARDIOVASCULAR EXAMINATION: S1, S2, no murmurs RESPIRATORY EXAMINATION: Clear to auscultation, no wheezing ABDOMINAL EXAMINATION: Soft, nontender, nondistended, positive bowel sounds EXTREMITIES: Range of motion intact SKIN: Left inner thigh with open wound, status post I&D with significant improvement surrounding erythema and tenderness to palpation. NEUROLOGICAL EXAMINATION: Alert and oriented 3, no focal deficits PSYCHIATRIC EXAMINATION: Calm and cooperative LABORATORY DATA: See below. IMAGING: CT abdomen and pelvis showing cellulitis without any collection MICROBIOLOGY: Please see below. ASSESSMENT: 74-year-old female with past medical history of atrial fibrillation, hypertension and asthma is being admitted for cellulitis. PLAN: 1. Left buttock and inner thigh cellulitis with abscess. Status post I&D at bedside yesterday, continue vancomycin and Merrem through today, blood cultures negative to date, tentatively plan for transition to oral antibiotics tomorrow. Discharge home. 2. Atrial fibrillation. Status post cardiac ablation, continue Eliquis for anticoagulation and atenolol for rate control. 3. Hypertension. Continue home Norvasc and atenolol 4. GERD - Protonix DVT prophylaxis: On Eliquis GI prophylaxis: PPI VS, I&O, 24H, Fishbone Vital Signs/I&O Vital Signs Date Time Temp Pulse Resp B/P (MAP) Pulse Ox O2 Delivery O2 Flow Rate FiO2 06/22/19 14:29 99.4 78 16 102/60 (74) 97 Room Air I&O- Last 24 Hours up to 6 AM 06/22/19 06:00 Intake Total 2410 ml Balance 2410 ml Laboratory Data 24H LABS Laboratory Tests 2 06/21/19 17:16: Vancomycin Level Trough 16.0 06/21/19 23:42: Nucleated Red Blood Cells % (auto) 0.0, Anion Gap 8, Glomerular Filtration Rate > 60.0, Lactic Acid Level 1.0, Calcium Level 8.0L, Magnesium Level 1.8 06/22/19 06:03: Nucleated Red Blood Cells % (auto) 0.0, Anion Gap 6L, Glomerular Filtration Rate > 60.0, Calcium Level 8.6L CBC/BMP Laboratory Tests 06/21/19 23:42 06/22/19 06:03 Microbiology Microbiology 06/21/19 Blood Culture, Received Pending 06/18/19 Blood Culture - Preliminary, Resulted No Growth after 72 hours. All specime... 06/18/19 Blood Culture - Preliminary, Resulted No Growth after 72 hours. All specime... AMOS LEON MD Jun 22, 2019 15:02
[2019-06-22 22:00] VITALS: BP 111/60
[2019-06-23 05:41] LABS: HEMATOCRIT 36.2 % (36.0-47.0); HEMOGLOBIN 11.5 g/dl (12.0-15.5); MEAN CORPUSCULAR HGB CONC 31.8 g/dl (32.0-36.5); MEAN CORPUSCULAR VOLUME 91.4 fl (80.0-96.0); PLATELET COUNT, AUTOMATED 251 10^3/uL (150-450); RED BLOOD COUNT 3.96 10^6/uL (4.00-5.40); WHITE BLOOD COUNT 8.6 10^3/uL (4.0-10.0)
[2019-06-23] MEDS: MEROPENEM INJ 1 GM in IV 1 EA IV SCH (05:55)
[2019-06-23 06:00] VITALS: BP 116/55
[2019-06-23 06:11] LABS: BLOOD UREA NITROGEN 13 MG/DL (7-18); CALCIUM LEVEL 8.4 MG/DL (8.8-10.2); CARBON DIOXIDE LEVEL 28 MEQ/L (21-32); CHLORIDE LEVEL 107 MEQ/L (98-107); CREATININE FOR GFR 0.66 MG/DL (0.55-1.30); GLOMERULAR FILTRATION RATE > 60.0 (>39); GLUCOSE, FASTING 96 MG/DL (70-100); MAGNESIUM LEVEL 2.1 MG/DL (1.8-2.4); POTASSIUM SERUM 3.9 MEQ/L (3.5-5.1); SODIUM LEVEL 141 MEQ/L (136-145); VANCOMYCIN LEVEL TROUGH 17.3 UG/ML (10.0-20.0)
--- NOTE | 2019-06-23 06:16 | PHACANCOPD ---
PHARMACY VANCOMYCIN DOSING Pt Demographics Demographics Patient Age:74 , Weight:66.600 , Gender: female Adjusted Body Weight Date: 06/18/19, Adjusted Body Weight: Kg Events Past 24 Hours Events Past 24 Hours: NO: Dialysis, Diuretic Therapy, Change in CrCl, Fever, Elevation in WBC, Pending Diagnostics, Pending Procedures, Other Vancomycin Vancomycin indication: SSTI Vancomycin Target Ranges: 10-20 mcg/ml Vancomycin Load Y/N: Yes Load Dose Date Time Vancomycin Load Dose: 1.25 grams Date: 06/18/19 Time: 1800 Vancomycin Dose Date: 06/23/19. Current Vancomycin Dose: [ 1 gram q12h ] Intermittent Dosing?: No Labs Labs Item Value Date Time White Blood Count 8.6 10^3/uL 06/23/19 0523 Glomerular Filtration Rate > 60.0 06/23/19 0523 Creatinine 0.66 MG/DL 06/23/19 0523 Blood Urea Nitrogen 13 MG/DL # 06/23/19 0523 Vancomycin Level Trough 17.3 UG/ML 06/23/19 0523 Vital Signs Label Value Date Time Patient Temperature 99.4 degrees F 06/22/19 2200 Temperature Source Oral 06/22/19 2200 Micro Microbiology 06/21/19 Blood Culture - Preliminary, Resulted No growth after 24 hours . All specim... 06/18/19 Blood Culture - Preliminary, Resulted No Growth after 72 hours. All specime... 06/18/19 Blood Culture - Preliminary, Resulted No Growth after 72 hours. All specime... Creatinine Clearance Date:06/23/19. Creatinine Clearance: [~74 ]. Assessment and Plan Maintaining Current Dose?: Yes Reason for dose change: No Dose Change Pharmacist Note Pharmacist Note Date: 06/23/19. Pharmacist note: Trough of 17.3 is within target range, will continue current dosing. Will monitor and make adjustments as needed. [facility] Jun 23, 2019 06:16
[2019-06-23] MEDS: VANCOMYCIN HCL 1,000 MG, VIAL MATE ADAPTER 1 EACH in D5W 250 ML IV SCH (06:55)
[2019-06-23] MEDS: MIRALAX *UNIT DOSE* 17GM PACKET PO SCH (08:54)
[2019-06-23] MEDS: PANTOPRAZOLE 40MG TAB (PROTONIX) PO SCH (08:57)
[2019-06-23] MEDS: APIXABAN 5 MG TAB (ELIQUIS) PO SCH (08:57)
[2019-06-23] MEDS: NIZATIDINE 150 MG PO SCH (08:58)
[2019-06-23] MEDS: ATENOLOL 12.5MG PER 1/2 TABLET PO SCH (08:59)
[2019-06-23 09:00] VITALS: BP 110/55
[2019-06-23] MEDS: amLODIPine 10 MG TAB PO SCH (09:00)
[2019-06-23] MEDS: BECLOMETHASONE INH SCH (09:00)
[2019-06-23] MEDS ORDERED: CLIN150C14 PO (11:10)
--- NOTE | 2019-06-23 11:13 | DS.PDOC ---
Discharge Summary General Date of Admission Jun 18, 2019 at 18:22 Date of Discharge 06/23/19 Attending Physician: AMOS LEON MD Discharge Summary PROCEDURES PERFORMED DURING STAY: None. ADMITTING DIAGNOSES: 1. Cellulitis with abscess. DISCHARGE DIAGNOSES: 1. Cellulitis with abscess. COMPLICATIONS/CHIEF COMPLAINT: A Fib Chronic;Bladder Prolapse;Cellulitis;Htn. HISTORY OF PRESENT ILLNESS: 74-year-old female with past medical history of atrial fibrillation, asthma, was admitted for cellulitis with abscess in her left inner thigh/buttock. She underwent I&D by general surgery and responded well to IV antibiotics. There is significant improvement in erythema surrounding the abscess site with wound currently draining minimal discharge. She has been cleared by general surgery for discharge and outpatient follow-up. She will be discharged on clindamycin for 7 days to complete her antibiotic course. She is clinically and hemodynamically stable for discharge and outpatient follow-up at this time.. HOSPITAL COURSE: As above. DISCHARGE MEDICATIONS: Please see below. ALLERGIES: Please see below. PHYSICAL EXAMINATION: VITAL SIGNS: Please see below. GENERAL: No distress HEENT: Normocephalic, atraumatic, moist mucous membranes NECK: Supple CARDIOVASCULAR EXAMINATION: S1, S2, no murmurs RESPIRATORY EXAMINATION: Clear to auscultation, no wheezing ABDOMINAL EXAMINATION: Soft, nontender, nondistended, positive bowel sounds EXTREMITIES: Range of motion intact SKIN: Left inner thigh with open wound, status post I&D with significant improvement in surrounding erythema and tenderness to palpation, no drainage today. NEUROLOGICAL EXAMINATION: Alert and oriented 3, no focal deficits PSYCHIATRIC EXAMINATION: Calm and cooperative LABORATORY DATA: Please see below. IMAGING: Initial CAT scan without abscess or collection PROGNOSIS: Fair ACTIVITY: As tolerated. DIET: Cardiac DISCHARGE PLAN: Follow with PCP and general surgery within 1-2 weeks DISPOSITION: Home. DISCHARGE INSTRUCTIONS: 1. As above. DISCHARGE CONDITION: Stable. TIME SPENT ON DISCHARGE: Greater than 28 minutes. Vital Signs/I&Os Vital Signs Date Time Temp Pulse Resp B/P (MAP) Pulse Ox O2 Delivery O2 Flow Rate FiO2 06/23/19 09:00 63 110/55 06/23/19 07:36 98.7 06/23/19 06:00 18 93 Room Air I&O- Last 24 Hours up to 6 AM 06/23/19 06:00 Intake Total 1725 ml Balance 1725 ml Laboratory Data Labs 24H Laboratory Tests 2 1/19/20 05:23: Nucleated Red Blood Cells % (auto) 0.0, Anion Gap 6L, Glomerular Filtration Rate > 60.0, Calcium Level 8.4L, Magnesium Level 2.1, Vancomycin Level Trough 17.3 CBC/BMP Laboratory Tests 06/23/19 05:23 Microbiology Microbiology 06/21/19 Blood Culture - Preliminary, Resulted No growth after 24 hours . All specim... 06/18/19 Blood Culture - Preliminary, Resulted No Growth after 72 hours. All specime... 06/18/19 Blood Culture - Preliminary, Resulted No Growth after 72 hours. All specime... Discharge Medications Scheduled Amlodipine Besylate (Amlodipine Besylate) 10 Mg Tab, 10 MG PO DAILY, (Reported) Apixaban (Eliquis) 5 Mg Tab, 5 MG PO BID, (Reported) Atenolol (Atenolol) 25 Mg Tab, 12.5 MG PO BID, (Reported) Beclomethasone Dipropionate (Qvar Redihaler) 80 Mcg/Act Hfa.aeroba, 1 PUFF INH BID, (Reported) Cholecalciferol (Vitamin D3) (Vitamin D3) 5,000 Unit Tab.rapdis, 5,000 UNIT PO DAILY, (Reported) Clindamycin Hcl (Clindamycin HCl) 150 Mg Capsule, 300 MG PO TID Nizatidine (Nizatidine) 150 Mg Cap, 150 MG PO DAILY, (Reported) Scheduled PRN Albuterol Sulfate (Ventolin Hfa) 18 Gm Hfa.aer.ad, 2 PUFF INH Q4H PRN for SOB/WHEEZING, (Reported) Allergies Coded Allergies: Dust (Verified Allergy, Severe, SOB, 06/18/19) PERFUMES (Verified Allergy, Severe, SOB, 06/18/19) Peanut (Verified Allergy, Severe, ANAPHYLAXIS, 06/18/19) Penicillins (Verified Allergy, Severe, THROAT SWELLING, 06/18/19) Shrimp (Verified Allergy, Severe, ANAPHYLAXIS, 06/18/19) bee venom protein (honey bee) (Verified Allergy, Severe, ANAPHYLAXIS, 06/18/19) ciprofloxacin (Verified Allergy, Severe, THROAT SWELLING, 06/18/19) mold (Verified Allergy, Severe, SOB, 06/18/19) moxifloxacin (Verified Allergy, Severe, THROAT SWELLING, 06/18/19) latex (Verified Allergy, Intermediate, rash, 05/14/19) atorvastatin (Verified Allergy, Unknown, UNKNOWN REACTION, 06/18/19) codeine (Verified Allergy, Unknown, UNKNOWN REACTION, 06/18/19) nitrofurantoin (Verified Allergy, Unknown, UNKNOWN REACTION, 06/18/19) pitavastatin (Verified Allergy, Unknown, UNKNOWN REACTION, 06/18/19) pollen extracts (Verified Allergy, Unknown, 05/14/19) pravastatin (Verified Allergy, Unknown, UNKNOWN REACTION, 06/18/19) procaine (Verified Allergy, Unknown, UNKNOWN REACTION, 06/18/19) rosuvastatin (Verified Allergy, Unknown, UNKNOWN REACTION, 06/18/19) Sulfa (Sulfonamide Antibiotics) (Verified Adverse Reaction, Intermediate, N/V, 06/18/19) AMOS LEON MD Jun 23, 2019 11:13
== END 2019-06-23 12:13 | disposition home or self-care (01) | DRG 982 ==
LOC: M ED 13:46 → M ED INP 18:22 → ENRESERV 22:12 → M MS4PR 22:50 → M MS5PR 06-20 16:29
PROVIDERS: ADMIT Internal Medicine; ATTEND Internal Medicine
PROC: 0D9P0ZZ Drainage of Rectum, Open Approach (ICD-10-PCS; principal; 2019-06-21)
DX: L03.317 Cellulitis of buttock (principal); L03.116 Cellulitis of left lower limb; I48.20 Chronic atrial fibrillation, unspecified; K61.1 Rectal abscess; I10 Essential (primary) hypertension; J45.909 Unspecified asthma, uncomplicated; Z79.899 Other long term (current) drug therapy; Z88.0 Allergy status to penicillin; Z88.2 Allergy status to sulfonamides; Z91.030 Bee allergy status; Z91.013 Allergy to seafood; Z91.010 Allergy to peanuts; Z91.040 Latex allergy status; Z88.5 Allergy status to narcotic agent; Z87.891 Personal history of nicotine dependence; K21.9 Gastro-esophageal reflux disease without esophagitis

== ENCOUNTER → 2019-07-05 | Outpatient (CLI) | payer MEDICARE, BC ==
[~2019-07-05] MED LIST changes: +VITA500079 PO
--- NOTE | 2019-07-05 12:01 | REP ---
BILATERAL SCREENING DIGITAL MAMMOGRAM WITH 3D TOMOSYNTHESIS: There are no palpable abnormalities or other breast complaints. The the patient states she has not had a clinical breast examination in over a year. The Tyrer-Cuzick Score is: 1.6% . Comparison is the 05/06/2014. The the patient has had bilateral ultrasound-guided breast biopsies. The biopsies have been negative for carcinoma. There are scattered areas of fibroglandular density. There is no dominant mass, micro calcific cluster or architectural distortion that would indicate malignancy. There are benign calcifications bilaterally. There is a biopsy marking clip in the left breast, unchanged. There are no additional findings on 3D tomosynthesiss. There is no change from the prior study. Impression: BIRADS/ACR category II mammogram. Benign findings. Recommendation: Routine annual screening mammography. This mammogram was interpreted with the aid of a FDA approved computer-aided detection system. A. Negative mammogram reports should not delay biopsy if a dominant or clinically suspicious mass is present. B. Not all breast cancers are identified by mammography or tomosynthesis. C. Adenosis and dense breasts may obscure an underlying neoplasm. Patient letter M1. Electronically Signed by Reilly Oliveira MD 07/05/2019 11:53 A
== END ==
LOC: M RAD 10:55
PROVIDERS: ATTEND Nurse Practitioner Adult Health
DX: Z12.31 Encounter for screening mammogram for malignant neoplasm of breast (principal)

== ENCOUNTER 2019-07-17 16:27 | Emergency (ER) | payer MEDICARE, BC ==
[~2019-07-17] VITALS: Ht 160 cm; Wt 70.3 kg
[2019-07-17] MEDS ORDERED: CETIRIZINE (ZyrTEC) 10 MG TAB PO ONE (17:00)
[2019-07-17 17:56] VITALS: BP 129/65
--- NOTE | 2019-07-17 18:15 | REP ---
CHEST, TWO VIEWS: Two views of the chest were performed. There is no acute infiltrate. Heart is upper limits of normal in size. There is calcification and tortuosity of the thoracic aorta. The mediastinal silhouette is unchanged. There are mild degenerative changes of the spine. IMPRESSION: No acute infiltrate or pulmonary edema. Electronically Signed by Reilly Suh MD 07/17/2019 06:43 P
== END 2019-07-17 18:08 | disposition home or self-care (01) ==
LOC: M ED 16:27
DX: F41.9 Anxiety disorder, unspecified (principal); I10 Essential (primary) hypertension; Z88.0 Allergy status to penicillin; Z88.2 Allergy status to sulfonamides; Z88.8 Allergy status to other drugs, medicaments and biological substances; Z88.5 Allergy status to narcotic agent; Z91.030 Bee allergy status; Z91.040 Latex allergy status; Z91.010 Allergy to peanuts; Z91.013 Allergy to seafood; Z91.048 Other nonmedicinal substance allergy status

== ENCOUNTER → 2019-10-15 | Outpatient (REF) | payer MEDICARE, BC ==
[2019-10-15 12:31] LABS: BASO # 0.1 10^3/uL (0.0-0.2); EOS # 0.3 10^3/uL (0.0-0.5); EOS % 3.4 % (0.0-3.0); HEMATOCRIT 42.5 % (36.0-47.0); HEMOGLOBIN 13.8 g/dl (12.0-15.5); LYMPH # 1.1 10^3/uL (1.5-5.0); LYMPH % 13.3 % (24.0-44.0); MEAN CORPUSCULAR HEMOGLOBIN 29.8 pg (27.0-33.0); MEAN CORPUSCULAR HGB CONC 32.5 g/dl (32.0-36.5); MEAN CORPUSCULAR VOLUME 91.8 fl (80.0-96.0); MONO # 0.8 10^3/uL (0.0-0.8); MONO % 9.6 % (0.0-5.0); NEUTROPHILS # 5.8 10^3/uL (1.5-8.5); NEUTROPHILS % 72.6 % (36.0-66.0); PLATELET COUNT, AUTOMATED 243 10^3/uL (150-450); RED BLOOD COUNT 4.63 10^6/uL (4.00-5.40)
[2019-10-15 13:42] LABS: ERYTHROCYTE SEDIMENTATION RATE 27 mm/hr (0-30)
== END ==
LOC: M SFHCPLAZ 11:33
PROVIDERS: ATTEND Family Medicine
DX: M25.521 Pain in right elbow (principal)

== ENCOUNTER → 2019-10-15 | Outpatient (CLI) | payer MEDICARE, BC ==
--- NOTE | 2019-10-15 12:46 | REPPI ---
REASON: Atraumatic pain and swelling. FINDINGS: There is no acute fracture, dislocation, subluxation or joint effusion. 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 No soft tissue swelling is seen in that region today. Electronically Signed by Gilson Lombardo DO 10/15/2019 02:13 P
== END ==
LOC: M PLAIMG 11:34
PROVIDERS: ATTEND Family Medicine
DX: M25.521 Pain in right elbow (principal)
CPT/HCPCS: 36415; 73080; 85025; 85652; 86140; G0463

== ENCOUNTER → 2019-10-21 | Outpatient (CLI) | payer MEDICARE, BC ==
[~2019-10-21] MED LIST changes: +BACI500O21 TOP
--- NOTE | 2019-10-21 16:40 | REP ---
LEFT ELBOW, FOUR VIEWS: There is no evidence of an acute fracture, dislocation or intrinsic bone disease. There is mild spurring of the proximal ulna. IMPRESSION: No fracture or dislocation. Electronically Signed by Reilly Suh MD 10/21/2019 07:33 P
--- NOTE | 2019-10-21 16:40 | REP ---
RIGHT KNEE, FOUR VIEWS: Four views, right knee performed. There is no acute fracture or dislocation. There is mild diffuse joint space narrowing. There are vascular calcifications posteriorly. I do not see evidence of a significant joint effusion. IMPRESSION: Mild degenerative changes. No evidence of fracture or dislocation. Electronically Signed by Reilly Suh MD 10/21/2019 07:33 P
== END ==
LOC: M WUC 13:35
PROVIDERS: ATTEND Physician Assistant
DX: S50.02XA Contusion of left elbow, initial encounter (principal); S80.01XA Contusion of right knee, initial encounter; M17.11 Unilateral primary osteoarthritis, right knee; M77.9 Enthesopathy, unspecified; X58.XXXA Exposure to other specified factors, initial encounter; Y92.9 Unspecified place or not applicable

== ENCOUNTER 2019-11-07 22:20 | Emergency (ER) | payer MEDICARE, BC ==
[~2019-11-07] VITALS: Ht 160 cm; Wt 69.4 kg
[~2019-11-07 22:20] MED LIST changes: -BACI500O21 TOP
[2019-11-07 22:21] VITALS: BP 131/66
[2019-11-07] MEDS ORDERED: BACI500O21 TOP (23:08)
[2019-11-07] MEDS ORDERED: BACITRACIN OINTMENT 30GM TUBE TOP STA (23:10)
== END 2019-11-07 23:22 | disposition home or self-care (01) ==
LOC: M ED 22:20
DX: S30.861A Insect bite (nonvenomous) of abdominal wall, initial encounter (principal); W57.XXXA Bitten or stung by nonvenomous insect and other nonvenomous arthropods, initial encounter; Y92.89 Other specified places as the place of occurrence of the external cause; Y93.9 Activity, unspecified; Y99.9 Unspecified external cause status; Z87.891 Personal history of nicotine dependence; Z88.0 Allergy status to penicillin; Z88.1 Allergy status to other antibiotic agents; Z91.040 Latex allergy status; Z91.010 Allergy to peanuts; Z91.013 Allergy to seafood

== ENCOUNTER → 2019-12-17 | Outpatient (REF) | payer MEDICARE, BC ==
[~2019-12-17] MED LIST changes: -AMLO10TA5 PO; +AMLO1TAB25 PO; +BACI500O21 TOP; +D31000TA2 PO
== END ==
LOC: M WUC 09:57
PROVIDERS: ATTEND Nurse Practitioner Family
DX: J02.9 Acute pharyngitis, unspecified (principal)

== ENCOUNTER → 2020-01-29 | Outpatient (CLI) | payer MEDICARE, BC | LOC: M LABSMTC 09:28 | PROVIDERS: ATTEND Anesthesiology | DX: Z03.818 Encounter for observation for suspected exposure to other biological agents ruled out (principal); Z11.59 Encounter for screening for other viral diseases | CPT/HCPCS: C9803; U0003 ==

== ENCOUNTER 2020-02-03 08:03 | Day surgery (SDC) | payer MEDICARE, BC ==
[~2020-02-03] VITALS: Ht 160 cm; Wt 68.4 kg
[2020-02-03] MEDS ORDERED: LIDOCAINE 2% 100MG/5ML SDV (FOR ANES.) As Ordered ONE (08:28)
[2020-02-03] MEDS ORDERED: propofoL 200 MG/20 ML VIAL As Ordered ONE (08:28)
[2020-02-03] MEDS ORDERED: ePHEDrine SULFATE 25 MG/5 ML(5MG/ML) SYRINGE As Ordered ONE ×2 (08:31→09:48)
[2020-02-03] MEDS ORDERED: NS 1,000 ML IV ONE (08:45)
[2020-02-03] MEDS ORDERED: fentaNYL 100 MCG/2 ML INJECTION (J3010) As Ordered ONE (09:38)
[2020-02-03] MEDS ORDERED: PHENYLephrine HCL 500 MCG/5 ML (100MCG/ML) SYRINGE (J2370) As Ordered ONE (09:54)
[2020-02-03 10:46] VITALS: BP 116/56
--- NOTE | 2020-02-12 11:36 | ROOR ---
Patient Name: Gaby Johnson Procedure Date: 02/03/2020 8:15 AM Date of : 1945 Age: 74 Room: [facility] Gender: Female Note Status: Finalized Procedure: Total Colonoscopy to Cecum Indications: Screening for colorectal malignant neoplasm Providers: Tommy Leon MD Referring MD: Ally BOWENS NP Requesting Provider: Medicines: Monitored Anesthesia Care Complications: No immediate complications. Procedure: Pre-Anesthesia Assessment: - The heart rate, respiratory rate, oxygen saturations, blood pressure, adequacy of pulmonary ventilation, and response to care were monitored throughout the procedure. The Colonoscope was introduced through the anus and advanced to the cecum, identified by appendiceal orifice and ileocecal valve. The colonoscopy was performed without difficulty. The patient tolerated the procedure well. The quality of the bowel preparation was excellent. Findings: The perianal and digital rectal examinations were normal. Non-bleeding internal hemorrhoids were found during retroflexion. The hemorrhoids were small and Grade I (internal hemorrhoids that do not prolapse). Multiple small and large-mouthed diverticula were found in the recto-sigmoid colon, sigmoid colon and descending colon. The exam was otherwise without abnormality on direct and retroflexion views. Impression: - Non-bleeding internal hemorrhoids. - Diverticulosis in the recto-sigmoid colon, in the sigmoid colon and in the descending colon. - The examination was otherwise normal on direct and retroflexion views. - No specimens collected. - The exam was otherwise normal to the cecum. Recommendation: - Patient has a contact number available for emergencies. The signs and symptoms of potential delayed complications were discussed with the patient. Return to normal activities tomorrow. Written discharge instructions were provided to the patient. - High fiber diet. - Discharge patient to home. - Continue present medications. - Repeat colonoscopy for symptoms only. - Return to referring physician. - The findings and recommendations were discussed with the patient. Tommy Leon MD Tommy Leon MD 02/03/2020 10:07:44 AM Number of Addenda: 0 Note Initiated On: 02/03/2020 8:15 AM Estimated Blood Loss: Estimated blood loss: none.
--- NOTE | 2020-02-12 11:37 | ROOR ---
Patient Name: Gaby Johnson Procedure Date: 02/03/2020 8:15 AM Date of : 1945 Age: 74 Room: [facility] Gender: Female Note Status: Finalized Procedure: Upper Endoscopy + Biopsies Indications: Heartburn, Exclusion of Martinez's esophagus Providers: Tommy Leon MD Referring MD: Ally BOWENS NP Requesting Provider: Medicines: Monitored Anesthesia Care Complications: No immediate complications. Procedure: Pre-Anesthesia Assessment: - The heart rate, respiratory rate, oxygen saturations, blood pressure, adequacy of pulmonary ventilation, and response to care were monitored throughout the procedure. The Endoscope was introduced through the mouth, and advanced to the second part of duodenum. The upper GI endoscopy was accomplished without difficulty. The patient tolerated the procedure well. Findings: The Z-line was regular and was found 35 cm from the incisors. Multiple biopsies were obtained with cold forceps for evaluation to rule out Martinez's Esophagus randomly at the gastroesophageal junction. A small hiatal hernia was present. No other significant abnormalities were identified in a careful examination of the stomach. Biopsies were taken with a cold forceps in the gastric antrum for Helicobacter pylori testing. The exam of the duodenum was otherwise normal. Impression: - Z-line regular, 35 cm from the incisors. - Small hiatal hernia. - Multiple biopsies were obtained at the gastroesophageal junction. - Biopsies were taken with a cold forceps for Helicobacter pylori testing. - The examination was otherwise normal. Recommendation: - Patient has a contact number available for emergencies. The signs and symptoms of potential delayed complications were discussed with the patient. Return to normal activities tomorrow. Written discharge instructions were provided to the patient. - High fiber diet. - Discharge patient to home. - Follow an antireflux regimen. - Continue present medications. - Await pathology results. - Telephone GI clinic for pathology results in 1 week. - Return to referring physician. - Repeat upper endoscopy for surveillance based on pathology results. - The findings and recommendations were discussed with the patient. Tommy Leon MD Tommy Leon MD 02/03/2020 9:52:03 AM Number of Addenda: 0 Note Initiated On: 02/03/2020 8:15 AM Estimated Blood Loss: Estimated blood loss: none.
== END 2020-02-03 10:47 | disposition home or self-care (01) ==
LOC: M OPP 08:03
PROVIDERS: ATTEND Internal Medicine Gastroenterology
DX: Z12.11 Encounter for screening for malignant neoplasm of colon (principal); Z86.010 Personal history of colon polyps; K64.0 First degree hemorrhoids; K57.30 Diverticulosis of large intestine without perforation or abscess without bleeding; K44.9 Diaphragmatic hernia without obstruction or gangrene; R12 Heartburn; I10 Essential (primary) hypertension; Z79.899 Other long term (current) drug therapy; Z88.0 Allergy status to penicillin; Z88.1 Allergy status to other antibiotic agents; Z88.2 Allergy status to sulfonamides; Z88.8 Allergy status to other drugs, medicaments and biological substances; Z91.013 Allergy to seafood; Z91.030 Bee allergy status; Z91.040 Latex allergy status; Z87.891 Personal history of nicotine dependence
CPT/HCPCS: 43239; 45378; 88305; 88342; J2370; J3010

== ENCOUNTER 2020-02-29 20:50 | Emergency (ER) | payer MEDICARE, BC ==
[~2020-02-29] VITALS: Ht 160 cm; Wt 68.2 kg
[2020-02-29] MEDS ORDERED: NITROGLYCERIN 0.4 MG SUBL TABLET SL PRN (21:30)
[2020-02-29] MEDS ORDERED: ASPIRIN 325 MG TAB PO ONE (21:30)
[2020-02-29 21:35] LABS: BASO # 0.1 10^3/uL (0.0-0.2); BASO % 1.4 % (0.0-1.0); EOS # 0.3 10^3/uL (0.0-0.5); EOS % 3.7 % (0.0-3.0); HEMATOCRIT 42.1 % (36.0-47.0); HEMOGLOBIN 13.9 g/dl (12.0-15.5); LYMPH # 1.6 10^3/uL (1.5-5.0); LYMPH % 21.5 % (24.0-44.0); MEAN CORPUSCULAR HEMOGLOBIN 29.2 pg (27.0-33.0); MEAN CORPUSCULAR VOLUME 88.4 fl (80.0-96.0); MONO # 0.8 10^3/uL (0.0-0.8); MONO % 10.3 % (0.0-5.0); NEUTROPHILS # 4.6 10^3/uL (1.5-8.5); PLATELET COUNT, AUTOMATED 238 10^3/uL (150-450); RED BLOOD COUNT 4.76 10^6/uL (4.00-5.40); WHITE BLOOD COUNT 7.3 10^3/uL (4.0-10.0)
[2020-02-29 21:48] LABS: INR 1.06
[2020-02-29 22:01] LABS: BLOOD UREA NITROGEN 15 MG/DL (7-18); CALCIUM LEVEL 8.8 MG/DL (8.8-10.2); CARBON DIOXIDE LEVEL 27 MEQ/L (21-32); CHLORIDE LEVEL 107 MEQ/L (98-107); CK-MB VALUE MASS 1.7 NG/ML (<3.6); CPK CREATINE PHOSPHOKINASE 76 U/L (26-192); CREATININE FOR GFR 0.68 MG/DL (0.55-1.30); GLOMERULAR FILTRATION RATE > 60.0 (>39); GLUCOSE, FASTING 103 MG/DL (70-100); MB/CK RELATIVE INDEX 2.24 (< OR =4); POTASSIUM SERUM 4.1 MEQ/L (3.5-5.1); SODIUM LEVEL 140 MEQ/L (136-145); TROPONIN I < 0.02 NG/ML (< 0.10)
--- NOTE | 2020-02-29 22:07 | REPVR ---
PROCEDURE INFORMATION: Exam: XR Chest, 1 View Exam date and time: 02/29/2020 9:34 PM Age: 74 years old Clinical indication: Chest pain; Type not specified TECHNIQUE: Imaging protocol: XR of the chest Views: 1 view. COMPARISON: CR Chest, 2 view PA, Lat 07/17/2019 4:59 PM FINDINGS: Lungs: Unremarkable. No consolidation. Pleural space: Unremarkable. No pleural effusion. No pneumothorax. Heart/Mediastinum: Heart size is at upper limits of normal. Vasculature: The aorta is slightly tortuous and calcified. Bones/joints: Unremarkable. IMPRESSION: No acute findings. Electronically signed by: Alex Chowdhury On 02/29/2020 22:06:39 PM
[2020-03-01 03:01] VITALS: BP 156/68
--- NOTE | 2020-03-01 15:28 | ECGEPIP ---
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
--- NOTE | 2020-03-01 15:30 | ECGEPIP ---
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
== END 2020-03-01 03:26 | disposition home or self-care (01) ==
LOC: M ED 20:50
DX: R07.89 Other chest pain (principal); R00.1 Bradycardia, unspecified; I11.9 Hypertensive heart disease without heart failure; E78.5 Hyperlipidemia, unspecified; M25.551 Pain in right hip; M25.552 Pain in left hip; Z88.1 Allergy status to other antibiotic agents; Z88.6 Allergy status to analgesic agent; Z88.8 Allergy status to other drugs, medicaments and biological substances; Z91.010 Allergy to peanuts; Z91.013 Allergy to seafood; Z91.030 Bee allergy status; Z91.040 Latex allergy status; Z79.51 Long term (current) use of inhaled steroids; Z79.899 Other long term (current) drug therapy

== ENCOUNTER 2020-03-17 16:12 | Emergency (ER) | payer MEDICARE, BC ==
[~2020-03-17] VITALS: Ht 160 cm; Wt 69.8 kg
--- NOTE | 2020-03-17 18:41 | REPVR ---
PROCEDURE INFORMATION: Exam: US Duplex Left Lower Extremity Veins, Limited Exam date and time: 03/17/2020 6:33 PM Age: 74 years old Clinical indication: Pain; Leg, lower; Left; Additional info: Swelling/pain TECHNIQUE: Imaging protocol: Real-time Duplex ultrasound of the Left Lower Extremity with 2-D lyon scale, color Doppler flow and spectral waveform analysis with image documentation. Limited exam focused on the left lower extremity veins. COMPARISON: US Duplex, Ext,LOWER veins,unilat 04/11/2019 1:47 PM FINDINGS: Left deep veins: Unremarkable. The common femoral, femoral, proximal profunda femoral and popliteal veins are patent without thrombus. Normal Doppler waveforms. Normal compressibility and/or augmentation response. Left superficial veins: Unremarkable. Saphenofemoral junction is patent without thrombus. Soft tissues: Unremarkable. IMPRESSION: No evidence of deep vein thrombosis. Electronically signed by: Fransico Villegas On 03/17/2020 18:41:23 PM
[2020-03-17 19:01] VITALS: BP 158/68
== END 2020-03-17 19:04 | disposition home or self-care (01) ==
LOC: M ED 16:12
DX: R60.0 Localized edema (principal); I48.91 Unspecified atrial fibrillation; I10 Essential (primary) hypertension; E78.5 Hyperlipidemia, unspecified; K21.9 Gastro-esophageal reflux disease without esophagitis; J45.909 Unspecified asthma, uncomplicated; M54.9 Dorsalgia, unspecified; Z88.0 Allergy status to penicillin; Z88.1 Allergy status to other antibiotic agents; Z88.2 Allergy status to sulfonamides; Z88.6 Allergy status to analgesic agent; Z88.8 Allergy status to other drugs, medicaments and biological substances; Z79.01 Long term (current) use of anticoagulants; Z79.899 Other long term (current) drug therapy

== ENCOUNTER → 2020-05-04 | Outpatient (CLI) | payer MEDICARE, BC ==
--- NOTE | 2020-05-04 08:46 | REP ---
INDICATION: ABNORMAL CHEST CT COMPARISON: 03/12/2019 TECHNIQUE: Axial noncontrast images from the thoracic inlet to the upper abdomen using low-dose lung screening technique (LDCT). FINDINGS: Lung [place] demonstrate stable emphysematous changes and chronic interstitial changes. Previously noted atelectasis and ground-glass opacities have resolved. There is a stable 2 mm subpleural density along the lateral aspect of the left lung (image 33). No effusion. No pneumothorax. IMPRESSION: Lung-RADS category 2. No new suspicious nodule or mass lesion. Management recommendations include annual low-dose CT surveillance. <Electronically signed by Tam Cunningham > 05/04/20 [id number]
== END ==
LOC: M RAD 07:58
PROVIDERS: ATTEND Nurse Practitioner Adult Health
DX: Z12.2 Encounter for screening for malignant neoplasm of respiratory organs (principal); R93.89 Abnormal findings on diagnostic imaging of other specified body structures; R91.8 Other nonspecific abnormal finding of lung field; Z87.891 Personal history of nicotine dependence

== ENCOUNTER → 2020-05-04 | Outpatient (CLI) | payer MEDICARE, BC ==
[2020-05-04 09:01] VITALS: BP 181/77
--- NOTE | 2020-05-04 09:05 | REP ---
INDICATION: ASPERIATION OF BAKERS-CYST OF POPLITEAL SPACE-L KNEE- CT 1ST COMPARISON: 05/27/2019 TECHNIQUE: Real time lyon scale ultrasound examination using linear high-frequency transducer. FINDINGS: Left popliteal fossa demonstrates a small Angel's cyst measuring 2.8 x 0.5 x 1.5 cm (previously measuring 4.5 x 0.9 x 2.0 cm). No aspiration performed due to decrease in size without the intervention and overall risk as compared to benefit. IMPRESSION: Angel's cyst decreased in size from prior examination. Aspiration not performed. <Electronically signed by Tam Cunningham > 05/04/20 0902
== END ==
LOC: M IRPRO 08:02
PROVIDERS: ATTEND Orthopaedic Surgery
DX: M71.22 Synovial cyst of popliteal space [Baker], left knee (principal); Z12.2 Encounter for screening for malignant neoplasm of respiratory organs; R93.89 Abnormal findings on diagnostic imaging of other specified body structures; R91.8 Other nonspecific abnormal finding of lung field; Z87.891 Personal history of nicotine dependence; Z53.8 Procedure and treatment not carried out for other reasons
CPT/HCPCS: 76882; G0297; G0463

== ENCOUNTER → 2020-06-16 | Outpatient (CLI) | payer MEDICARE, BC ==
[~2020-06-16] MED LIST changes: -CLIN150C14 PO; +CLIN150C15 PO
--- NOTE | 2020-06-16 12:22 | REP ---
INDICATION: UNS ATH GINNA ART OF ROSARIO LEGS, VENOUS INSUFFIENCY COMPARISON: None. TECHNIQUE: Real time suh scale and Duplex Doppler evaluation of the bilateral lower extremity arterial vasculature using linear high frequency transducer. FINDINGS: Suh scale and duplex doppler images demonstrate hskv-dh-xmtzyyef plaquing in the bilateral common femoral arteries with moderate to severe plaquing in the mid to distal superficial femoral arteries. There is severe stenosis of the mid right superficial femoral artery approximately 12-1. There is post stenotic turbulence distal to this. Biphasic waveforms are seen in the right common femoral artery and proximal superficial femoral artery, with monophasic waveforms more distally. There is eqhv-yo-osbdbvuo stenosis of the mid left superficial femoral artery approximately 2-1 with post stenotic turbulence. Diffuse biphasic and triphasic waveforms are seen in the left lower extremity with monophasic waveforms noted in left profunda and proximal posterior tibial artery. Peak systolic velocities (cm/sec) Common femoral artery: Right 89; Left 134 Profunda femoris: Right 122; Left 111 SFA (proximal): Right 109; Left 158 SFA (mid): Right 430; Left 225 SFA (distal): Right 126; Left 112 Popliteal artery: Right 51; Left 85 ASHLEY (prox.): Right 42; Left 49 Tibioperoneal trunk: Right 66; Left this 80 TRIAL ATTORNEY (prox.): Right 64; Left 22 TRIAL ATTORNEY (distal): Right 26; Left 54 ASHLEY (distal): Right 36; Left 56 IMPRESSION: Zdws-es-fnlrrbkd plaque in the bilateral common femoral arteries with moderate severe plaque in the mid to distal superficial femoral arteries. Severe stenosis mid right SFA. Jfzz-bd-octqoaad stenosis mid left SFA. <Electronically signed by Reilly Suh > 06/16/20 [id number]
== END ==
LOC: M RAD 10:30
PROVIDERS: ATTEND Physician Assistant
DX: I70.213 Atherosclerosis of native arteries of extremities with intermittent claudication, bilateral legs (principal)

== ENCOUNTER → 2020-06-18 | Outpatient (CLI) | payer MEDICARE, BC ==
--- NOTE | 2020-06-18 14:00 | REP ---
INDICATION: VENOUS INSUFFIENCY ROSARIO LEGS COMPARISON: None. TECHNIQUE: Real time compression and duplex Doppler interrogation of the bilateral lower extremity deep venous system is performed. FINDINGS: Bilaterally, the common femoral, superficial femoral and popliteal veins are fully compressible with transducer pressure and demonstrate normal spontaneous and phasic flow, without evidence of deep venous thrombosis. Evaluation for venous reflux is performed. On the right no reflux is seen in any of the superficial veins nor deep veins. Collateral venous structures are visualized. There is an anterior accessory greater saphenous vein present without reflux. The greater saphenous vein measures between 2 and 3 mm. The lesser saphenous vein measures 3 mm. On the left there is evidence of reflux in the common femoral and superficial femoral vein with no reflux in the popliteal vein. There is an anterior accessory greater saphenous vein present without reflux. There is no reflux in the greater saphenous vein at the saphenofemoral junction, which measures 3 mm, nor thigh which measures 2 mm. There is reflux in the greater saphenous vein at the knee for duration of 1.7 seconds, AP diameter 5 mm, with a collateral vein communicating at this location. Lesser saphenous vein measures 2 mm. IMPRESSION: No evidence of deep venous thrombosis of the bilateral lower extremity femoral popliteal venous system. Reflux left greater saphenous vein at the knee as discussed above. <Electronically signed by Reilly Suh > 06/18/20 [id number]
== END ==
LOC: M RAD 11:39
PROVIDERS: ATTEND Physician Assistant
DX: I87.2 Venous insufficiency (chronic) (peripheral) (principal); I70.203 Unspecified atherosclerosis of native arteries of extremities, bilateral legs; I83.813 Varicose veins of bilateral lower extremities with pain

== ENCOUNTER → 2020-07-28 | Outpatient (CLI) | payer MEDICARE, BC | LOC: M LABSMTC 10:24 | PROVIDERS: ATTEND Family Medicine | DX: Z11.52 Encounter for screening for COVID-19 (principal) | CPT/HCPCS: C9803; U0003 ==

== ENCOUNTER → 2020-09-24 | Outpatient (REF) | payer MEDICARE, BC ==
[~2020-09-24] MED LIST changes: -VITA-157 PO; +VITAE40CA PO
[2020-09-24 10:22] LABS: HEMATOCRIT 44.2 % (36.0-47.0); HEMOGLOBIN 14.1 g/dl (12.0-15.5); MEAN CORPUSCULAR HEMOGLOBIN 29.4 pg (27.0-33.0); MEAN CORPUSCULAR HGB CONC 31.9 g/dl (32.0-36.5); MEAN CORPUSCULAR VOLUME 92.1 fl (80.0-96.0); PLATELET COUNT, AUTOMATED 213 10^3/uL (150-450); WHITE BLOOD COUNT 8.8 10^3/uL (4.0-10.0)
[2020-09-24 10:47] LABS: HEMOGLOBIN A1c 5.4 %
[2020-09-24 10:57] LABS: ALBUMIN 3.9 GM/DL (3.2-5.2); ALT/SGPT 23 U/L (12-78); BILIRUBIN,TOTAL 0.9 MG/DL (0.2-1.0); BLOOD UREA NITROGEN 14 MG/DL (7-18); CALCIUM LEVEL 9.1 MG/DL (8.8-10.2); CARBON DIOXIDE LEVEL 31 MEQ/L (21-32); CHLORIDE LEVEL 104 MEQ/L (98-107); CHOLESTEROL LEVEL 189 MG/DL (<200); CHOLESTEROL RISK RATIO 2.739 (<5); CREATININE FOR GFR 0.76 MG/DL (0.55-1.30); GLOMERULAR FILTRATION RATE > 60.0 (>39); GLUCOSE, FASTING 102 MG/DL (70-100); HDL CHOLESTEROL 69 MG/DL (>40); LDL CHOLESTEROL 102 MG/DL (<100); NON-HDL-C 120 MG/DL; POTASSIUM SERUM 4.7 MEQ/L (3.5-5.1); SODIUM LEVEL 138 MEQ/L (136-145); TOTAL PROTEIN 7.4 GM/DL (6.4-8.2); TRIGLYCERIDES LEVEL 92 MG/DL (<150)
== END ==
LOC: M SFHCPLAZ 08:23
PROVIDERS: ATTEND Nurse Practitioner Adult Health
DX: E78.00 Pure hypercholesterolemia, unspecified (principal); I10 Essential (primary) hypertension; I48.0 Paroxysmal atrial fibrillation; Z83.3 Family history of diabetes mellitus; Z79.899 Other long term (current) drug therapy

== ENCOUNTER → 2020-09-24 | Outpatient (CLI) | payer MEDICARE, BC ==
--- NOTE | 2020-09-24 09:01 | REPPI ---
INDICATION: PAIN LEFT HIP COMPARISON: None. TECHNIQUE: AP and frog-lateral views of the left hip FINDINGS: Generalized age-related changes include increased sclerosis to the acetabulum with mild joint space narrowing. No further overt osteoarthritic or significant degenerative changes are appreciated. No evidence for acute or healed injury. Surrounding soft tissues are normal. IMPRESSION: Generalized age-related arthritic changes. <Electronically signed by Tam Cunningham > 09/24/20 0857
== END ==
LOC: M PLAIMG 08:23
PROVIDERS: ATTEND Nurse Practitioner Adult Health
DX: M16.12 Unilateral primary osteoarthritis, left hip (principal); M25.552 Pain in left hip
CPT/HCPCS: 73502; 85027; G0463

== ENCOUNTER → 2020-10-26 | Outpatient (CLI) | payer MEDICARE, BC ==
--- NOTE | 2020-10-26 10:17 | REPMRS ---
Patient History The patient states she has not had a clinical breast exam in over a year. Family history of colorectal cancer at age 80 in maternal uncle. Benign US guided breast biopsy of both breasts. Took hormonal contraceptives for 2 months. Took estrogen for 5 years. Patient states no breast complaints today. Patient has signed MRS History Sheet. Digital Woman Screen Mammo: October 26, 2020 - Exam #: [id number] Bilateral CC and MLO view(s) were taken. Technologist: Doris Hudson Technologist Prior study comparison: July 05, 2019, bilateral digital mammo screening bilat, performed at [facility]. July 03, 2018, bilateral digital mammo screening bilat, performed at [facility]. July 03, 2017, digital woman screen mammo performed at [facility]. FINDINGS: There are scattered fibroglandular densities. The Volpara volumetric breast density category is:B. There is a needle biopsy marker clip again noted in the left breast. There has been no change in the appearance of the mammogram from the prior studies. There is a mild amount of scattered fibroglandular density which is fairly symmetric. There is no interval development of dominant mass, architectural distortion, or grouped microcalcification suggestive of malignancy. 3-D tomosynthesis shows no additional findings. Assessment: BI-RADS/ACR category 2 mammogram. Benign Findings. Recommendation Routine screening mammogram of both breasts in 1 year (for women over age 40). This patient's [facility] Lifetime Breast Cancer Risk is estimated at 1.5 %.This mammogram was interpreted with the aid of an DA-approved computer-aided dectection system. Electronically Signed By: Clif Banegas MD 10/26/20 [id number]
== END ==
LOC: M WHC 09:31
PROVIDERS: ATTEND Nurse Practitioner Adult Health
DX: Z12.31 Encounter for screening mammogram for malignant neoplasm of breast (principal)

== ENCOUNTER 2020-11-03 14:50 | Emergency (ER) | payer MEDICARE, BC ==
[~2020-11-03] VITALS: Ht 157.5 cm; Wt 67.5 kg
[2020-11-03 16:48] VITALS: BP 137/66
== END 2020-11-03 17:03 | disposition home or self-care (01) ==
LOC: M ED 14:50
DX: M79.674 Pain in right toe(s) (principal); Z88.0 Allergy status to penicillin; Z88.1 Allergy status to other antibiotic agents; Z88.2 Allergy status to sulfonamides; Z88.8 Allergy status to other drugs, medicaments and biological substances; Z91.010 Allergy to peanuts

== ENCOUNTER 2020-11-15 10:39 | Emergency (ER) | payer MEDICARE, BC ==
[~2020-11-15] VITALS: Ht 162.6 cm; Wt 65.9 kg
[2020-11-15] MEDS ORDERED: CLIN75CA PO (12:32)
[2020-11-15 12:53] VITALS: BP 143/79
== END 2020-11-15 12:50 | disposition home or self-care (01) ==
LOC: M ED 10:39
DX: M79.674 Pain in right toe(s) (principal); I10 Essential (primary) hypertension; I48.91 Unspecified atrial fibrillation; Z79.01 Long term (current) use of anticoagulants; Z79.2 Long term (current) use of antibiotics; Z79.51 Long term (current) use of inhaled steroids; Z87.891 Personal history of nicotine dependence; Z88.0 Allergy status to penicillin; Z88.1 Allergy status to other antibiotic agents; Z88.2 Allergy status to sulfonamides; Z88.8 Allergy status to other drugs, medicaments and biological substances; Z91.013 Allergy to seafood; Z91.010 Allergy to peanuts

== ENCOUNTER → 2020-12-15 | Outpatient (CLI) | payer MEDICARE, BC ==
[~2020-12-15] MED LIST changes: -CLIN150C15 PO; +CLIN150C17 PO; +CLIN75CA PO; +NIZA150C10 PO; -NIZA150C4 PO
[2020-12-15 11:18] LABS: HEMATOCRIT 43.5 % (36.0-47.0); HEMOGLOBIN 13.8 g/dl (12.0-15.5); MEAN CORPUSCULAR HEMOGLOBIN 28.6 pg (27.0-33.0); MEAN CORPUSCULAR HGB CONC 31.7 g/dl (32.0-36.5); MEAN CORPUSCULAR VOLUME 90.2 fl (80.0-96.0); PLATELET COUNT, AUTOMATED 213 10^3/uL (150-450); RED BLOOD COUNT 4.82 10^6/uL (4.00-5.40); WHITE BLOOD COUNT 6.6 10^3/uL (4.0-10.0)
[2020-12-15 12:07] LABS: ALBUMIN 3.8 GM/DL (3.2-5.2); ALT/SGPT 22 U/L (12-78); BILIRUBIN,TOTAL 0.7 MG/DL (0.2-1.0); BLOOD UREA NITROGEN 14 MG/DL (7-18); CALCIUM LEVEL 8.8 MG/DL (8.8-10.2); CARBON DIOXIDE LEVEL 29 MEQ/L (21-32); CHLORIDE LEVEL 107 MEQ/L (98-107); CHOLESTEROL LEVEL 203 MG/DL (<200); CHOLESTEROL RISK RATIO 2.985 (<5); CREATININE FOR GFR 0.76 MG/DL (0.55-1.30); GLOMERULAR FILTRATION RATE > 60.0 (>39); GLUCOSE, FASTING 94 MG/DL (70-100); HDL CHOLESTEROL 68 MG/DL (>40); LDL CHOLESTEROL 124 MG/DL (<100); MAGNESIUM LEVEL 2.1 MG/DL (1.8-2.4); NON-HDL-C 135 MG/DL; POTASSIUM SERUM 4.2 MEQ/L (3.5-5.1); SODIUM LEVEL 141 MEQ/L (136-145); TOTAL PROTEIN 7.1 GM/DL (6.4-8.2); TRIGLYCERIDES LEVEL 57 MG/DL (<150)
== END ==
LOC: M PLALAB 07:42
PROVIDERS: ATTEND Physician Assistant
DX: I48.0 Paroxysmal atrial fibrillation (principal); E78.00 Pure hypercholesterolemia, unspecified

== ENCOUNTER → 2021-01-18 | Outpatient (CLI) | payer MEDICARE, BC ==
[~2021-01-18] MED LIST changes: -NIZA150C10 PO; +NIZA150C4 PO
--- NOTE | 2021-01-18 15:06 | REP ---
INDICATION: PAIN IN LEFT HIP. COMPARISON: 09/24/2020 TECHNIQUE: AP and frog-lateral views FINDINGS: There is asymmetric hip joint space narrowing status quo. There is no acute fracture, dislocation, or subluxation. IMPRESSION: Stable chronic changes <Electronically signed by Gilson Lombardo > 01/18/21 [id number]
== END ==
LOC: M PLAIMG 13:54
PROVIDERS: ATTEND Nurse Practitioner Adult Health
DX: M25.552 Pain in left hip (principal)

== ENCOUNTER → 2021-02-12 | Outpatient (CLI) | payer MEDICARE, BC ==
--- NOTE | 2021-02-12 12:13 | REP ---
INDICATION: UNSPECIFIED arm PAIN. Fell on right arm 2 days ago COMPARISON: None. TECHNIQUE: AP and lateral views FINDINGS: No acute fracture or destructive osseous lesion. IMPRESSION: No acute abnormality <Electronically signed by Gilson Lombardo > 02/12/21 [id number]
--- NOTE | 2021-02-12 12:25 | REP ---
INDICATION: UNSPECIFIED ABDOMINAL PAIN. COMPARISON: Two view chest of 07/17/2019 and right rib series of 07/31/2018 TECHNIQUE: Four views right ribs with frontal view of the chest FINDINGS: The frontal view the chest is unchanged from the prior exam showing cardiomegaly but no evidence of acute cardiopulmonary disease. Four views of the right ribs show no significant changes from the prior exam. There is no evidence of an acute fracture. IMPRESSION: Negative right rib series. <Electronically signed by Gilson Lombardo > 02/12/21 [id number]
== END ==
LOC: M PLALAB 11:32
PROVIDERS: ATTEND Nurse Practitioner Family
DX: R10.9 Unspecified abdominal pain (principal)
CPT/HCPCS: 71101; 73090; G0463

== ENCOUNTER → 2021-04-17 | Outpatient (CLI) | payer MEDICARE, BC | LOC: M LABSMTC 10:01 | PROVIDERS: ATTEND Pediatrics | DX: Z20.822 Contact with and (suspected) exposure to COVID-19 (principal) | CPT/HCPCS: C9803; U0003 ==

== ENCOUNTER 2021-06-16 16:10 | Emergency (ER) | payer MEDICARE, BC ==
[~2021-06-16] VITALS: Ht 162.6 cm; Wt 66.7 kg
[~2021-06-16 16:10] MED LIST changes: +NIZA150C10 PO; -NIZA150C4 PO
[2021-06-16] MEDS ORDERED: ASPIRIN 81 MG CHEW TABLET PO ONE (16:35)
[2021-06-16] MEDS ORDERED: GI COCKTAIL 50ML BTL(HYOSCYAMINE/MAALOX/LIDOCAINE VISCOUS)(1:3:1) PO ONE (16:35)
[2021-06-16 17:21] LABS: BASO # 0.1 10^3/uL (0.0-0.2); BASO % 1.2 % (0.0-1.0); EOS # 0.3 10^3/uL (0.0-0.5); EOS % 3.7 % (0.0-3.0); HEMATOCRIT 42.4 % (36.0-47.0); HEMOGLOBIN 13.7 g/dl (12.0-15.5); LYMPH # 1.6 10^3/uL (1.5-5.0); LYMPH % 22.1 % (24.0-44.0); MEAN CORPUSCULAR HEMOGLOBIN 28.8 pg (27.0-33.0); MEAN CORPUSCULAR HGB CONC 32.3 g/dl (32.0-36.5); MEAN CORPUSCULAR VOLUME 89.3 fl (80.0-96.0); MONO # 0.8 10^3/uL (0.0-0.8); MONO % 10.8 % (2.0-8.0); NEUTROPHILS # 4.5 10^3/uL (1.5-8.5); NEUTROPHILS % 62.1 % (36.0-66.0); PLATELET COUNT, AUTOMATED 283 10^3/uL (150-450); RED BLOOD COUNT 4.75 10^6/uL (4.00-5.40); WHITE BLOOD COUNT 7.3 10^3/uL (4.0-10.0)
[2021-06-16 17:37] LABS: MB/CK RELATIVE INDEX 1.72 (< OR =4)
[2021-06-16 17:45] LABS: ALBUMIN 3.9 GM/DL (3.2-5.2); ALT/SGPT 25 U/L (12-78); BILIRUBIN,DIRECT 0.1 MG/DL (0.0-0.2); BILIRUBIN,TOTAL 0.3 MG/DL (0.2-1.0); BLOOD UREA NITROGEN 10 MG/DL (7-18); CALCIUM LEVEL 9.3 MG/DL (8.8-10.2); CARBON DIOXIDE LEVEL 27 MEQ/L (21-32); CHLORIDE LEVEL 106 MEQ/L (98-107); CREATININE FOR GFR 0.81 MG/DL (0.55-1.30); FREE T4 0.99 NG/DL (0.76-1.46); GLOMERULAR FILTRATION RATE > 60.0 (>39); GLUCOSE, FASTING 89 MG/DL (70-100); LIPASE 1202 U/L (73-393); NT-PRO BNP 990 PG/ML (<450); POTASSIUM SERUM 4.5 MEQ/L (3.5-5.1); SODIUM LEVEL 138 MEQ/L (136-145); TOTAL PROTEIN 7.7 GM/DL (6.4-8.2)
[2021-06-16 18:34] LABS: CK-MB VALUE MASS 2.6 NG/ML (<3.6); MB/CK RELATIVE INDEX 1.73 (< OR =4)
[2021-06-16] MEDS ORDERED: ISOVUE-370 76% 100ML VIAL As Ordered ONE (18:40)
[2021-06-16 20:16] VITALS: BP 114/65
[2021-06-16 20:28] LABS: CK-MB VALUE MASS 2.4 NG/ML (<3.6); MB/CK RELATIVE INDEX 1.76 (< OR =4)
== END 2021-06-16 21:00 | disposition home or self-care (01) ==
LOC: M ED 16:10
DX: K85.90 Acute pancreatitis without necrosis or infection, unspecified (principal); F43.0 Acute stress reaction; R00.1 Bradycardia, unspecified; F41.9 Anxiety disorder, unspecified; K21.9 Gastro-esophageal reflux disease without esophagitis; I10 Essential (primary) hypertension; E78.5 Hyperlipidemia, unspecified; Z90.89 Acquired absence of other organs; Z90.79 Acquired absence of other genital organ(s); Z88.2 Allergy status to sulfonamides; Z88.5 Allergy status to narcotic agent; Z91.010 Allergy to peanuts; Z91.013 Allergy to seafood; Z91.030 Bee allergy status; Z79.01 Long term (current) use of anticoagulants; Z79.899 Other long term (current) drug therapy

== ENCOUNTER → 2021-07-26 | Outpatient (CLI) | payer MEDICARE, BC ==
[2021-07-26 14:14] LABS: ALBUMIN 3.6 GM/DL (3.2-5.2); ALT/SGPT 24 U/L (12-78); AMYLASE 41 U/L (25-115); BILIRUBIN,TOTAL 0.6 MG/DL (0.2-1.0); BLOOD UREA NITROGEN 13 MG/DL (7-18); CALCIUM LEVEL 8.9 MG/DL (8.8-10.2); CARBON DIOXIDE LEVEL 27 MEQ/L (21-32); CHLORIDE LEVEL 106 MEQ/L (98-107); GLOMERULAR FILTRATION RATE > 60.0 (>39); GLUCOSE, FASTING 69 MG/DL (70-100); LIPASE 225 U/L (73-393); POTASSIUM SERUM 4.2 MEQ/L (3.5-5.1); SODIUM LEVEL 138 MEQ/L (136-145)
== END ==
LOC: M PLALAB 09:30
PROVIDERS: ATTEND Nurse Practitioner Adult Health
DX: K85.00 Idiopathic acute pancreatitis without necrosis or infection (principal)

== ENCOUNTER → 2021-08-20 | Outpatient (REF) | payer MEDICARE, BC ==
[~2021-08-20] MED LIST changes: -D31000TA2 PO; +VITA100093 PO
== END ==
LOC: M SFHCPLAZ 17:00
PROVIDERS: ATTEND Physician Assistant
DX: R05.9 Cough, unspecified (principal)

== ENCOUNTER → 2021-09-02 | Outpatient (CLI) | payer MEDICARE, BC ==
[2021-09-02 17:11] LABS: BASO # 0.1 10^3/uL (0.0-0.2); EOS # 0.2 10^3/uL (0.0-0.5); EOS % 1.6 % (0.0-3.0); HEMATOCRIT 42.4 % (36.0-47.0); HEMOGLOBIN 13.8 g/dl (12.0-15.5); LYMPH % 10.2 % (24.0-44.0); MEAN CORPUSCULAR HEMOGLOBIN 28.8 pg (27.0-33.0); MEAN CORPUSCULAR HGB CONC 32.5 g/dl (32.0-36.5); MEAN CORPUSCULAR VOLUME 88.3 fl (80.0-96.0); MONO % 9.7 % (2.0-8.0); NEUTROPHILS # 7.7 10^3/uL (1.5-8.5); NEUTROPHILS % 76.3 % (36.0-66.0); PLATELET COUNT, AUTOMATED 303 10^3/uL (150-450); WHITE BLOOD COUNT 10.1 10^3/uL (4.0-10.0)
[2021-09-02 17:25] LABS: FERRITIN 41 NG/ML (8-252); IRON (FE) 47 UG/DL (50-170)
== END ==
LOC: M PLALAB 15:05
PROVIDERS: ATTEND Physician Assistant Medical
DX: K92.1 Melena (principal)

== ENCOUNTER → 2021-11-04 | Outpatient (REF) | payer MEDICARE, BC | LOC: M SFHCPLAZ 17:28 | PROVIDERS: ATTEND Nurse Practitioner Adult Health | DX: R41.0 Disorientation, unspecified (principal) ==

== ENCOUNTER → 2021-11-09 | Outpatient (CLI) | payer MEDICARE, BC | LOC: M PLAIMG 13:42 | PROVIDERS: ATTEND Nurse Practitioner Adult Health | DX: R41.0 Disorientation, unspecified (principal); Z84.89 Family history of other specified conditions ==

== ENCOUNTER → 2021-11-11 | Outpatient (CLI) | payer MEDICARE, BC | LOC: M WHC 14:28 | PROVIDERS: ATTEND Nurse Practitioner Adult Health | DX: Z12.31 Encounter for screening mammogram for malignant neoplasm of breast (principal); Z53.9 Procedure and treatment not carried out, unspecified reason ==

== ENCOUNTER → 2021-11-12 | Outpatient (CLI) | payer MEDICARE, BC | LOC: M WHC 10:44 | PROVIDERS: ATTEND Nurse Practitioner Adult Health | DX: Z12.31 Encounter for screening mammogram for malignant neoplasm of breast (principal) ==

== ENCOUNTER → 2021-12-24 | Outpatient (CLI) | payer MEDICARE, BC ==
[2021-12-24 18:51] LABS: INR 1.05; PROTHROMBIN TIME 14.1 SECONDS (12.7-14.5)
[2021-12-24 18:52] LABS: PARTIAL THROMBOPLASTIN TIME 33.9 SECONDS (25.9-37.0)
[2021-12-24 19:29] LABS: CHOLESTEROL RISK RATIO 2.825 (<5); TOTAL PROTEIN 7.1 GM/DL (6.4-8.2)
[2021-12-24 19:36] LABS: HEMOGLOBIN A1c 5.8 %
[2021-12-27 15:07] LABS: ANTINUCLEAR ANTIBODIES DIRECT Negative (Negative)
== END ==
LOC: M LAB 16:54
PROVIDERS: ATTEND Optometrist
DX: H34.8122 Central retinal vein occlusion, left eye, stable (principal)

== ENCOUNTER → 2021-12-28 | Outpatient (CLI) | payer MEDICARE, BC | LOC: M PLAIMG 14:21 | PROVIDERS: ATTEND Optometrist | DX: R41.3 Other amnesia (principal); R44.3 Hallucinations, unspecified ==

== ENCOUNTER → 2022-04-14 | Outpatient (CLI) | payer MEDICARE, BC | LOC: M RAD 13:38 | PROVIDERS: ATTEND Physician Assistant | DX: I65.23 Occlusion and stenosis of bilateral carotid arteries (principal) ==

== ENCOUNTER → 2022-04-14 | Outpatient (REF) | payer MEDICARE, BC ==
[2022-04-14 12:28] LABS: HEMATOCRIT 39.7 % (36.0-47.0); MEAN CORPUSCULAR HEMOGLOBIN 29.2 pg (27.0-33.0); MEAN CORPUSCULAR HGB CONC 32.7 g/dl (32.0-36.5); MEAN CORPUSCULAR VOLUME 89.2 fl (80.0-96.0); PLATELET COUNT, AUTOMATED 251 10^3/uL (150-450); RED BLOOD COUNT 4.45 10^6/uL (4.00-5.40); WHITE BLOOD COUNT 6.7 10^3/uL (4.0-10.0)
[2022-04-14 13:11] LABS: CALCIUM LEVEL 9.2 MG/DL (8.8-10.2); CREATININE FOR GFR 1.01 MG/DL (0.55-1.30); GLOMERULAR FILTRATION RATE 56.4 (>39); MAGNESIUM LEVEL 2.2 MG/DL (1.8-2.4); POTASSIUM SERUM 4.2 MEQ/L (3.5-5.1)
== END ==
LOC: M LABDRAWC 11:33
PROVIDERS: ATTEND Physician Assistant
DX: I48.0 Paroxysmal atrial fibrillation (principal); I11.9 Hypertensive heart disease without heart failure

== ENCOUNTER 2022-09-08 17:04 | Observation (INO) | payer MEDICARE, BC ==
[~2022-09-08] VITALS: Ht 162.6 cm; Wt 67.2 kg
[2022-09-08 18:23] LABS: BASO # 0.1 10^3/uL (0.0-0.2); BASO % 1.3 % (0.0-1.0); EOS # 0.5 10^3/uL (0.0-0.5); EOS % 6.4 % (0.0-3.0); HEMATOCRIT 39.2 % (36.0-47.0); HEMOGLOBIN 12.9 g/dl (12.0-15.5); LYMPH # 1.1 10^3/uL (1.5-5.0); LYMPH % 15.9 % (24.0-44.0); MEAN CORPUSCULAR HEMOGLOBIN 29.1 pg (27.0-33.0); MEAN CORPUSCULAR HGB CONC 32.9 g/dl (32.0-36.5); MEAN CORPUSCULAR VOLUME 88.5 fl (80.0-96.0); MONO # 0.7 10^3/uL (0.0-0.8); NEUTROPHILS # 4.7 10^3/uL (1.5-8.5); NEUTROPHILS % 66.1 % (36.0-66.0); PLATELET COUNT, AUTOMATED 242 10^3/uL (150-450); RED BLOOD COUNT 4.43 10^6/uL (4.00-5.40); WHITE BLOOD COUNT 7.2 10^3/uL (4.0-10.0)
[2022-09-08] MEDS ORDERED: atenoloL 25 MG TAB PO ONE (18:25)
[2022-09-08 18:32] LABS: AMPHETAMINES LEVEL URINE NEGATIVE (NEGATIVE); BARBITURATES URINE NEGATIVE (NEGATIVE); BENZODIAZEPINES URINE NEGATIVE (NEGATIVE); CANNABINOIDS URINE NEGATIVE (NEGATIVE); COCAINE METABOLITE URINE NEGATIVE (NEGATIVE); METHADONE URINE NEGATIVE (NEGATIVE); OPIATES URINE NEGATIVE (NEGATIVE); PHENCYCLIDINE URINE NEGATIVE (NEGATIVE)
[2022-09-08 18:33] LABS: ETHYL ALCOHOL (ETHANOL) < 0.003 % (0.000-0.010)
[2022-09-08 18:34] LABS: ALBUMIN 3.7 G/DL (3.2-5.2); ALKALINE PHOSPHATASE 100 U/L (46-116); ALT/SGPT 16 U/L (7.0-40); AST/SGOT 19 U/L (<34); BILIRUBIN,DIRECT 0.2 MG/DL (<0.4); BILIRUBIN,TOTAL 0.7 MG/DL (0.3-1.2); BLOOD UREA NITROGEN 22 MG/DL (9-23); CALCIUM LEVEL 8.5 MG/DL (8.3-10.6); CARBON DIOXIDE LEVEL 29 MMOL/L (20-31); CHLORIDE LEVEL 104 MMOL/L (98-107); CREATININE FOR GFR 0.97 MG/DL (0.55-1.30); GLOMERULAR FILTRATION RATE 59.1 (>39); GLUCOSE, FASTING 89 MG/DL (74-106); POTASSIUM SERUM 3.6 MMOL/L (3.5-5.1); SODIUM LEVEL 139 MMOL/L (136-145)
[2022-09-08 18:36] LABS: THYROID STIMULATING HORMONE 1.968 uIU/ML (0.55-4.78)
[2022-09-08 19:07] LABS: RSV AMPLIFICATION NEGATIVE (NEGATIVE)
[2022-09-08] MEDS ORDERED: ACETAMINOPHEN TAB 650MG DOSE (2X325MG) PO PRN (21:10)
[2022-09-08] MEDS ORDERED: IPRATROPIUM 0.5MG/ALBUTEROL 2.5MG INH SOL UD 3ML (DUONEB) NEB PRN (21:10)
[2022-09-08 22:00] VITALS: BP 165/77
[2022-09-08] MEDS ORDERED: FUROSEMIDE 20MG/2ML VIAL IV ONE (22:00)
[2022-09-08] MEDS ORDERED: LEVA45AE INH (22:07)
[2022-09-08] MEDS ORDERED: SERT50TA29 PO (22:07)
[2022-09-08] MEDS ORDERED: QVAR80AE8 INH (22:07)
[2022-09-08] MEDS ORDERED: OLAN2.5T25 PO (22:07)
[2022-09-08] MEDS ORDERED: HOME MED LIST COMPLETE! XX SCH (22:10)
[2022-09-08 23:17] LABS: INR 1.02; PROTHROMBIN TIME 13.6 SECONDS (12.5-14.5)
[2022-09-08 23:18] LABS: PARTIAL THROMBOPLASTIN TIME 30.8 SECONDS (24.8-34.2)
[2022-09-09] MEDS: APIXABAN 5 MG TAB (ELIQUIS) PO SCH ×3 (00:12→20:24)
[2022-09-09] MEDS: SERTRALINE HCL 50 MG TAB PO SCH ×2 (00:12→20:24)
[2022-09-09 05:16] VITALS: BP 111/74
[2022-09-09 06:57] LABS: HEMATOCRIT 37.9 % (36.0-47.0); HEMOGLOBIN 12.5 g/dl (12.0-15.5); MEAN CORPUSCULAR HEMOGLOBIN 28.9 pg (27.0-33.0); MEAN CORPUSCULAR VOLUME 87.7 fl (80.0-96.0); PLATELET COUNT, AUTOMATED 227 10^3/uL (150-450); RED BLOOD COUNT 4.32 10^6/uL (4.00-5.40); WHITE BLOOD COUNT 6.1 10^3/uL (4.0-10.0)
[2022-09-09 07:20] LABS: BLOOD UREA NITROGEN 17 MG/DL (9-23); CALCIUM LEVEL 8.4 MG/DL (8.3-10.6); CARBON DIOXIDE LEVEL 28 MMOL/L (20-31); CHLORIDE LEVEL 104 MMOL/L (98-107); CREATININE FOR GFR 0.91 MG/DL (0.55-1.30); GLOMERULAR FILTRATION RATE > 60.0 (>39); GLUCOSE, FASTING 98 MG/DL (74-106); POTASSIUM SERUM 3.8 MMOL/L (3.5-5.1); SODIUM LEVEL 139 MMOL/L (136-145)
[2022-09-09] MEDS: ATENOLOL 12.5MG PER 1/2 TABLET PO SCH ×2 (09:31→20:25)
[2022-09-09] MEDS ORDERED: LEVALBUTEROL HFA 45MCG/ACT 15GM INHALER INH PRN (09:35)
[2022-09-09] MEDS ORDERED: FLUTICASONE HFA 110MCG 12GM INHALER (FLOVENT) INH SCH (10:00)
[2022-09-09] MEDS: BUDESONIDE 180MCG INHALER (PULMICORT FLEXHALER) INH SCH ×2 (10:57→19:42)
[2022-09-09 14:00] VITALS: BP 147/63
[2022-09-09] MEDS ORDERED: OLANZapine 2.5MG TABLET PO SCH (21:00)
[2022-09-09 21:49] VITALS: BP_SYST 131; BP_SYST 142; BP_DIAS 60; BP_DIAS 61
[2022-09-10 06:00] VITALS: BP 139/63
[2022-09-10] MEDS: BUDESONIDE 180MCG INHALER (PULMICORT FLEXHALER) INH SCH ×3 (07:51→19:40)
[2022-09-10] MEDS: OLANZapine INTRAMUSCULAR 10MG VIAL IM ONE ×2 (10:05→10:24)
[2022-09-10] MEDS ORDERED: OLANZapine 2.5MG TABLET PO ONE (10:05)
[2022-09-10] MEDS: ATENOLOL 12.5MG PER 1/2 TABLET PO SCH ×2 (11:26→20:37)
[2022-09-10] MEDS: APIXABAN 5 MG TAB (ELIQUIS) PO SCH ×2 (11:26→20:36)
[2022-09-10 20:35] VITALS: BP 134/69
[2022-09-10] MEDS: OLANZapine 5 MG TAB PO SCH (20:37)
[2022-09-10] MEDS: SERTRALINE HCL 50 MG TAB PO SCH (20:37)
[2022-09-10] MEDS ORDERED: OLANZapine INTRAMUSCULAR 10MG VIAL IM PRN (21:00)
[2022-09-10] MEDS ORDERED: OLANZapine 2.5MG TABLET PO SCH (21:00)
[2022-09-11 06:00] VITALS: BP 178/60
[2022-09-11 06:08] LABS: BASO # 0.1 10^3/uL (0.0-0.2); BASO % 1.4 % (0.0-1.0); EOS # 0.5 10^3/uL (0.0-0.5); EOS % 9.2 % (0.0-3.0); HEMATOCRIT 38.3 % (36.0-47.0); HEMOGLOBIN 12.4 g/dl (12.0-15.5); LYMPH % 17.9 % (24.0-44.0); MEAN CORPUSCULAR HEMOGLOBIN 28.6 pg (27.0-33.0); MEAN CORPUSCULAR HGB CONC 32.4 g/dl (32.0-36.5); MEAN CORPUSCULAR VOLUME 88.2 fl (80.0-96.0); MONO # 0.6 10^3/uL (0.0-0.8); MONO % 11.1 % (2.0-8.0); NEUTROPHILS # 3.5 10^3/uL (1.5-8.5); NEUTROPHILS % 60.1 % (36.0-66.0); PLATELET COUNT, AUTOMATED 239 10^3/uL (150-450); RED BLOOD COUNT 4.34 10^6/uL (4.00-5.40); WHITE BLOOD COUNT 5.8 10^3/uL (4.0-10.0)
[2022-09-11 06:30] LABS: CALCIUM LEVEL 8.4 MG/DL (8.3-10.6); CREATININE FOR GFR 0.96 MG/DL (0.55-1.30); GLOMERULAR FILTRATION RATE 59.8 (>39)
[2022-09-11] MEDS: BUDESONIDE 180MCG INHALER (PULMICORT FLEXHALER) INH SCH ×2 (07:49→20:00)
[2022-09-11] MEDS: ATENOLOL 12.5MG PER 1/2 TABLET PO SCH ×2 (07:53→20:05)
[2022-09-11] MEDS: APIXABAN 5 MG TAB (ELIQUIS) PO SCH ×2 (07:53→20:05)
[2022-09-11] MEDS: OLANZapine 5 MG TAB PO SCH ×2 (07:53→20:04)
[2022-09-11] MEDS: SERTRALINE HCL 50 MG TAB PO SCH (20:05)
[2022-09-12] MEDS: BUDESONIDE 180MCG INHALER (PULMICORT FLEXHALER) INH SCH ×2 (07:33→21:19)
[2022-09-12 08:00] VITALS: BP 157/74
[2022-09-12] MEDS: APIXABAN 5 MG TAB (ELIQUIS) PO SCH ×2 (08:13→19:31)
[2022-09-12] MEDS: ATENOLOL 12.5MG PER 1/2 TABLET PO SCH ×2 (08:13→19:30)
[2022-09-12] MEDS: OLANZapine 5 MG TAB PO SCH ×2 (08:13→19:31)
[2022-09-12] MEDS: SERTRALINE HCL 50 MG TAB PO SCH (19:31)
[2022-09-13 06:00] VITALS: BP 109/61
[2022-09-13] MEDS: BUDESONIDE 180MCG INHALER (PULMICORT FLEXHALER) INH SCH ×2 (08:09→19:41)
[2022-09-13 08:33] VITALS: BP 110/62
[2022-09-13] MEDS: APIXABAN 5 MG TAB (ELIQUIS) PO SCH ×2 (08:34→20:49)
[2022-09-13] MEDS: ATENOLOL 12.5MG PER 1/2 TABLET PO SCH ×2 (08:34→20:48)
[2022-09-13] MEDS: OLANZapine 5 MG TAB PO SCH ×2 (08:34→20:48)
[2022-09-13] MEDS: SERTRALINE HCL 50 MG TAB PO SCH (20:49)
[2022-09-14 06:00] VITALS: BP 132/59
[2022-09-14] MEDS: BUDESONIDE 180MCG INHALER (PULMICORT FLEXHALER) INH SCH ×2 (07:21→19:24)
[2022-09-14] MEDS: APIXABAN 5 MG TAB (ELIQUIS) PO SCH ×2 (08:31→19:58)
[2022-09-14] MEDS: OLANZapine 5 MG TAB PO SCH ×2 (08:32→19:58)
[2022-09-14] MEDS: ATENOLOL 12.5MG PER 1/2 TABLET PO SCH ×2 (08:34→19:59)
[2022-09-14] MEDS: SERTRALINE HCL 50 MG TAB PO SCH (19:59)
[2022-09-15 04:40] VITALS: BP 165/74
[2022-09-15] MEDS: BUDESONIDE 180MCG INHALER (PULMICORT FLEXHALER) INH SCH ×2 (07:25→19:37)
[2022-09-15] MEDS: OLANZapine 5 MG TAB PO SCH ×2 (09:26→19:49)
[2022-09-15] MEDS: APIXABAN 5 MG TAB (ELIQUIS) PO SCH ×2 (09:27→19:49)
[2022-09-15] MEDS: ATENOLOL 12.5MG PER 1/2 TABLET PO SCH (09:28)
[2022-09-15] MEDS: ANUSOL HC CREAM 30GM TOP SCH ×2 (14:35→19:50)
[2022-09-15] MEDS: SERTRALINE HCL 50 MG TAB PO SCH (19:48)
[2022-09-15] MEDS: atenoloL 25 MG TAB PO SCH (19:49)
[2022-09-16 06:00] VITALS: BP 153/80
[2022-09-16] MEDS: BUDESONIDE 180MCG INHALER (PULMICORT FLEXHALER) INH SCH ×2 (07:57→19:50)
[2022-09-16] MEDS: OLANZapine 5 MG TAB PO SCH ×2 (08:07→20:08)
[2022-09-16] MEDS: APIXABAN 5 MG TAB (ELIQUIS) PO SCH ×2 (08:07→20:08)
[2022-09-16] MEDS: atenoloL 25 MG TAB PO SCH ×2 (08:11→20:08)
[2022-09-16] MEDS: ANUSOL HC CREAM 30GM TOP SCH ×2 (08:13→21:00)
[2022-09-16] MEDS: SERTRALINE HCL 50 MG TAB PO SCH (20:08)
[2022-09-17 06:34] VITALS: BP 154/59
[2022-09-17] MEDS: BUDESONIDE 180MCG INHALER (PULMICORT FLEXHALER) INH SCH ×2 (07:32→20:09)
[2022-09-17] MEDS: OLANZapine 5 MG TAB PO SCH ×2 (08:29→19:47)
[2022-09-17] MEDS: APIXABAN 5 MG TAB (ELIQUIS) PO SCH ×2 (08:29→19:47)
[2022-09-17] MEDS: ANUSOL HC CREAM 30GM TOP SCH ×2 (08:30→19:48)
[2022-09-17] MEDS: atenoloL 25 MG TAB PO SCH ×2 (08:30→19:48)
[2022-09-17] MEDS: SERTRALINE HCL 50 MG TAB PO SCH (19:47)
[2022-09-18 07:06] VITALS: BP 158/78
[2022-09-18] MEDS: BUDESONIDE 180MCG INHALER (PULMICORT FLEXHALER) INH SCH ×2 (07:21→21:02)
[2022-09-18] MEDS: APIXABAN 5 MG TAB (ELIQUIS) PO SCH ×2 (08:19→20:23)
[2022-09-18] MEDS: OLANZapine 5 MG TAB PO SCH ×2 (08:19→20:23)
[2022-09-18] MEDS: atenoloL 25 MG TAB PO SCH ×2 (08:20→20:24)
[2022-09-18] MEDS: ANUSOL HC CREAM 30GM TOP SCH ×2 (08:21→20:24)
[2022-09-18] MEDS: SERTRALINE HCL 50 MG TAB PO SCH (20:23)
[2022-09-19 06:00] VITALS: BP 155/69
[2022-09-19] MEDS: BUDESONIDE 180MCG INHALER (PULMICORT FLEXHALER) INH SCH ×2 (07:13→20:47)
[2022-09-19] MEDS: atenoloL 25 MG TAB PO SCH ×2 (09:00→20:13)
[2022-09-19] MEDS: APIXABAN 5 MG TAB (ELIQUIS) PO SCH ×2 (09:47→20:10)
[2022-09-19] MEDS: OLANZapine 5 MG TAB PO SCH ×2 (09:47→20:11)
[2022-09-19] MEDS: ANUSOL HC CREAM 30GM TOP SCH ×2 (09:50→20:11)
[2022-09-19] MEDS: SERTRALINE HCL 50 MG TAB PO SCH (20:11)
[2022-09-20 06:00] VITALS: BP 151/49
[2022-09-20] MEDS: BUDESONIDE 180MCG INHALER (PULMICORT FLEXHALER) INH SCH ×2 (07:32→20:55)
[2022-09-20] MEDS: APIXABAN 5 MG TAB (ELIQUIS) PO SCH ×2 (08:26→20:28)
[2022-09-20] MEDS: OLANZapine 5 MG TAB PO SCH ×2 (08:26→20:28)
[2022-09-20] MEDS: ANUSOL HC CREAM 30GM TOP SCH ×2 (08:27→20:29)
[2022-09-20] MEDS: atenoloL 25 MG TAB PO SCH ×2 (08:27→20:28)
[2022-09-20] MEDS: SERTRALINE HCL 50 MG TAB PO SCH (20:28)
[2022-09-21 05:40] VITALS: BP 122/55
[2022-09-21] MEDS: BUDESONIDE 180MCG INHALER (PULMICORT FLEXHALER) INH SCH ×2 (07:31→20:00)
[2022-09-21] MEDS: APIXABAN 5 MG TAB (ELIQUIS) PO SCH ×2 (08:36→20:09)
[2022-09-21] MEDS: OLANZapine 5 MG TAB PO SCH ×2 (08:36→20:09)
[2022-09-21] MEDS: ANUSOL HC CREAM 30GM TOP SCH ×2 (08:37→20:10)
[2022-09-21] MEDS: atenoloL 25 MG TAB PO SCH ×2 (08:37→20:09)
[2022-09-21] MEDS: SERTRALINE HCL 50 MG TAB PO SCH (20:09)
[2022-09-22 05:26] VITALS: BP 153/71
[2022-09-22] MEDS: BUDESONIDE 180MCG INHALER (PULMICORT FLEXHALER) INH SCH ×2 (07:26→19:37)
[2022-09-22] MEDS: APIXABAN 5 MG TAB (ELIQUIS) PO SCH ×2 (08:07→20:06)
[2022-09-22] MEDS: OLANZapine 5 MG TAB PO SCH ×2 (08:07→20:06)
[2022-09-22] MEDS: atenoloL 25 MG TAB PO SCH ×2 (08:07→20:07)
[2022-09-22] MEDS: SERTRALINE HCL 50 MG TAB PO SCH (20:06)
[2022-09-23 06:00] VITALS: BP 175/70
[2022-09-23] MEDS: BUDESONIDE 180MCG INHALER (PULMICORT FLEXHALER) INH SCH ×2 (07:25→19:25)
[2022-09-23] MEDS: APIXABAN 5 MG TAB (ELIQUIS) PO SCH ×2 (07:57→20:11)
[2022-09-23] MEDS: OLANZapine 5 MG TAB PO SCH ×2 (07:57→20:10)
[2022-09-23] MEDS: atenoloL 25 MG TAB PO SCH ×2 (07:57→20:10)
[2022-09-23] MEDS: SERTRALINE HCL 50 MG TAB PO SCH (20:09)
[2022-09-24] MEDS: BUDESONIDE 180MCG INHALER (PULMICORT FLEXHALER) INH SCH ×2 (07:21→18:54)
[2022-09-24] MEDS: APIXABAN 5 MG TAB (ELIQUIS) PO SCH ×2 (08:54→20:03)
[2022-09-24] MEDS: OLANZapine 5 MG TAB PO SCH ×2 (08:55→20:03)
[2022-09-24] MEDS: atenoloL 25 MG TAB PO SCH ×2 (08:55→20:05)
[2022-09-24] MEDS: SERTRALINE HCL 50 MG TAB PO SCH (20:05)
[2022-09-25 06:00] VITALS: BP 153/61
[2022-09-25] MEDS: BUDESONIDE 180MCG INHALER (PULMICORT FLEXHALER) INH SCH ×2 (07:32→19:01)
[2022-09-25] MEDS: OLANZapine 5 MG TAB PO SCH ×2 (08:56→21:16)
[2022-09-25] MEDS: APIXABAN 5 MG TAB (ELIQUIS) PO SCH ×2 (08:56→21:17)
[2022-09-25] MEDS: atenoloL 25 MG TAB PO SCH ×2 (08:57→21:17)
[2022-09-25] MEDS: SERTRALINE HCL 50 MG TAB PO SCH (21:16)
[2022-09-25 21:17] VITALS: BP 142/59
[2022-09-26] MEDS: BUDESONIDE 180MCG INHALER (PULMICORT FLEXHALER) INH SCH (07:26)
[2022-09-26] MEDS: OLANZapine 5 MG TAB PO SCH (08:01)
[2022-09-26] MEDS: APIXABAN 5 MG TAB (ELIQUIS) PO SCH (08:01)
[2022-09-26] MEDS: atenoloL 25 MG TAB PO SCH (08:01)
[2022-09-26] MEDS ORDERED: ATEN25TA PO (09:35)
[2022-09-26] MEDS ORDERED: OLAN1TAB16 PO (09:35)
[2022-09-26] MEDS ORDERED: BUDE180INH INH (09:35)
== END 2022-09-26 13:32 ==
LOC: M ED 17:04 → INTOOBSV 21:10 → M ED INP 21:10 → M MSPAV 22:02
PROVIDERS: ADMIT Internal Medicine; ATTEND Internal Medicine
DX: G93.40 Encephalopathy, unspecified (principal); F02.80 Dementia in other diseases classified elsewhere, unspecified severity, without behavioral disturbance, psychotic disturbance, mood disturbance, and anxiety; L23.9 Allergic contact dermatitis, unspecified cause; R60.0 Localized edema; I48.0 Paroxysmal atrial fibrillation; F41.9 Anxiety disorder, unspecified; F32.A Depression, unspecified; J45.909 Unspecified asthma, uncomplicated; Z79.01 Long term (current) use of anticoagulants; E78.5 Hyperlipidemia, unspecified; I10 Essential (primary) hypertension; Z79.899 Other long term (current) drug therapy; Z88.1 Allergy status to other antibiotic agents; Z91.010 Allergy to peanuts; Z91.013 Allergy to seafood; Z88.0 Allergy status to penicillin; Z91.030 Bee allergy status; Z88.2 Allergy status to sulfonamides; Z88.8 Allergy status to other drugs, medicaments and biological substances; M25.569 Pain in unspecified knee; W01.0XXA Fall on same level from slipping, tripping and stumbling without subsequent striking against object, initial encounter; Y92.239 Unspecified place in hospital as the place of occurrence of the external cause; Y99.9 Unspecified external cause status
CPT/HCPCS: 36415; 70450; 71045; 73564; 80048; 80076; 80307; 81001; 82077; 82140; 83605; 83880; 84443; 85025; 85027; 85610; 85730; 87040; 87631; 87635; 93005; 93041; 93971; 94640; 94760; 96374; 97161; 97165; 99285; G0378; J1940

== ENCOUNTER 2022-11-13 20:37 | Emergency (ER) | payer MEDICARE, BC ==
[2022-11-13 20:37] VITALS: BP 162/72; TEMP 98.6; O2SAT 96
[~2022-11-13 20:37] MED LIST changes: +BUDE180INH INH; +LEVA45AE INH; +OLAN1TAB16 PO; +OLAN2.5T25 PO; +SERT50TA29 PO
== END 2022-11-13 22:33 | disposition home or self-care (01) ==
LOC: M ED 20:37
DX: S62.91XA Unspecified fracture of right hand, initial encounter for closed fracture (principal); M51.36 Other intervertebral disc degeneration, lumbar region; M46.92 Unspecified inflammatory spondylopathy, cervical region; W19.XXXA Unspecified fall, initial encounter; F03.90 Unspecified dementia, unspecified severity, without behavioral disturbance, psychotic disturbance, mood disturbance, and anxiety; Z86.79 Personal history of other diseases of the circulatory system; Z88.0 Allergy status to penicillin; Z88.1 Allergy status to other antibiotic agents; Z88.2 Allergy status to sulfonamides; Z88.5 Allergy status to narcotic agent; Z88.8 Allergy status to other drugs, medicaments and biological substances; Z91.010 Allergy to peanuts; Z91.030 Bee allergy status; Z91.048 Other nonmedicinal substance allergy status; Z79.01 Long term (current) use of anticoagulants; Z79.899 Other long term (current) drug therapy

== ENCOUNTER → 2022-11-14 | Outpatient (REF) | payer MEDICARE, BC ==
[2022-11-14 08:42] LABS: HEMATOCRIT 37.1 % (36.0-47.0); HEMOGLOBIN 11.8 g/dl (12.0-15.5); MEAN CORPUSCULAR HEMOGLOBIN 27.8 pg (27.0-33.0); MEAN CORPUSCULAR HGB CONC 31.8 g/dl (32.0-36.5); MEAN CORPUSCULAR VOLUME 87.3 fl (80.0-96.0); PLATELET COUNT, AUTOMATED 337 10^3/uL (150-450); RED BLOOD COUNT 4.25 10^6/uL (4.00-5.40); WHITE BLOOD COUNT 9.8 10^3/uL (4.0-10.0)
[2022-11-14 09:09] LABS: ALBUMIN 3.1 G/DL (3.2-5.2); BILIRUBIN,TOTAL 0.6 MG/DL (0.3-1.2); CALCIUM LEVEL 8.6 MG/DL (8.3-10.6); CREATININE FOR GFR 0.99 MG/DL (0.55-1.30); GLOMERULAR FILTRATION RATE 57.8 (>39); POTASSIUM SERUM 4.4 MMOL/L (3.5-5.1); TOTAL PROTEIN 6.8 G/DL (5.7-8.2)
== END ==
LOC: SKLAB8 07:22
PROVIDERS: ATTEND Internal Medicine
DX: U07.1 COVID-19 (principal); Z79.899 Other long term (current) drug therapy

== ENCOUNTER → 2022-11-17 | Outpatient (REF) | payer MEDICARE, BC ==
[~2022-11-17] MED LIST changes: +SERT25TA21 PO
[2022-11-17 10:31] LABS: HEMATOCRIT 37.7 % (36.0-47.0); HEMOGLOBIN 11.9 g/dl (12.0-15.5); MEAN CORPUSCULAR HEMOGLOBIN 27.9 pg (27.0-33.0); MEAN CORPUSCULAR HGB CONC 31.6 g/dl (32.0-36.5); MEAN CORPUSCULAR VOLUME 88.5 fl (80.0-96.0); PLATELET COUNT, AUTOMATED 352 10^3/uL (150-450); RED BLOOD COUNT 4.26 10^6/uL (4.00-5.40); WHITE BLOOD COUNT 9.4 10^3/uL (4.0-10.0)
[2022-11-17 10:58] LABS: THYROID STIMULATING HORMONE 2.747 uIU/ML (0.55-4.78)
[2022-11-17 10:59] LABS: VITAMIN B12 LEVEL 523 PG/ML (211-911)
[2022-11-17 11:07] LABS: ALBUMIN 3.3 G/DL (3.2-5.2); ALKALINE PHOSPHATASE 104 U/L (46-116); ALT/SGPT 21 U/L (7.0-40); AST/SGOT 22 U/L (<34); BILIRUBIN,TOTAL 0.5 MG/DL (0.3-1.2); BLOOD UREA NITROGEN 17 MG/DL (9-23); CALCIUM LEVEL 8.7 MG/DL (8.3-10.6); CARBON DIOXIDE LEVEL 25 MMOL/L (20-31); CHLORIDE LEVEL 106 MMOL/L (98-107); CHOLESTEROL LEVEL 152 MG/DL (<200); CHOLESTEROL RISK RATIO 3.55 (<5); CREATININE FOR GFR 0.89 MG/DL (0.55-1.30); GLOMERULAR FILTRATION RATE > 60.0 (>39); GLUCOSE, FASTING 85 MG/DL (74-106); HDL CHOLESTEROL 42.8 MG/DL (>40); LDL CHOLESTEROL 89.4 MG/DL (<100); NON-HDL-C 109.2 MG/DL; POTASSIUM SERUM 4.6 MMOL/L (3.5-5.1); SODIUM LEVEL 137 MMOL/L (136-145); TOTAL PROTEIN 7.2 G/DL (5.7-8.2); TRIGLYCERIDES LEVEL 99 MG/DL (<150)
== END ==
LOC: SKLAB8 07:00
PROVIDERS: ATTEND Internal Medicine
DX: F03.90 Unspecified dementia, unspecified severity, without behavioral disturbance, psychotic disturbance, mood disturbance, and anxiety (principal); I10 Essential (primary) hypertension; E78.5 Hyperlipidemia, unspecified

== ENCOUNTER → 2022-11-25 | Outpatient (CLI) | payer MEDICARE | LOC: M WHC 12:24 | PROVIDERS: ATTEND Nurse Practitioner | DX: Z53.9 Procedure and treatment not carried out, unspecified reason (principal) ==

== ENCOUNTER → 2022-11-30 | Day surgery (SDC) | payer MEDICARE, BC ==
[~2022-11-30] VITALS: Ht 30.5 cm; Wt 66.7 kg
[~2022-11-30] MED LIST changes: +LIDOCAINE 2% 100MG/5ML SDV (FOR ANES.) As Ordered ONE; +LR 1,000 ML IV SCH; +MIDAZOLAM INJ 2MG/2ML VIAL As Ordered ONE; +ONDANSETRON 4MG 2ML VIAL As Ordered ONE; +fentaNYL 100 MCG/2 ML INJECTION As Ordered ONE; +propofoL 200 MG/20 ML VIAL As Ordered ONE
[2022-11-30 06:40] VITALS: BP 137/63; TEMP 97.6; O2SAT 95
== END | disposition home or self-care (01) ==
LOC: M SDC 06:06
PROVIDERS: ATTEND Orthopaedic Surgery Hand Surgery
DX: S52.501A Unspecified fracture of the lower end of right radius, initial encounter for closed fracture (principal); Z53.8 Procedure and treatment not carried out for other reasons
CPT/HCPCS: J2250; J3010

== ENCOUNTER → 2022-12-22 | Outpatient (CLI) | payer MEDICARE, BC ==
[~2022-12-22] MED LIST changes: -LIDOCAINE 2% 100MG/5ML SDV (FOR ANES.) As Ordered ONE; -LR 1,000 ML IV SCH; -MIDAZOLAM INJ 2MG/2ML VIAL As Ordered ONE; -ONDANSETRON 4MG 2ML VIAL As Ordered ONE; -fentaNYL 100 MCG/2 ML INJECTION As Ordered ONE; -propofoL 200 MG/20 ML VIAL As Ordered ONE
[2022-12-22 11:36] LABS: BASO # 0.1 10^3/uL (0.0-0.2); BASO % 0.6 % (0.0-1.0); HEMATOCRIT 37.7 % (36.0-47.0); HEMOGLOBIN 12.2 g/dl (12.0-15.5); LYMPH # 0.8 10^3/uL (1.5-5.0); LYMPH % 6.9 % (24.0-44.0); MEAN CORPUSCULAR HEMOGLOBIN 27.8 pg (27.0-33.0); MEAN CORPUSCULAR HGB CONC 32.4 g/dl (32.0-36.5); MEAN CORPUSCULAR VOLUME 85.9 fl (80.0-96.0); MONO # 1.2 10^3/uL (0.0-0.8); NEUTROPHILS # 8.9 10^3/uL (1.5-8.5); NEUTROPHILS % 74.1 % (36.0-66.0); PLATELET COUNT, AUTOMATED 248 10^3/uL (150-450); RED BLOOD COUNT 4.39 10^6/uL (4.00-5.40)
[2022-12-22 11:58] LABS: ERYTHROCYTE SEDIMENTATION RATE 82 mm/hr (0-30)
[2022-12-22 12:03] LABS: C REACTIVE PROTEIN QUANTITATIV 4.1 MG/DL (<1.0)
[2022-12-22 12:04] LABS: ALBUMIN 3.2 G/DL (3.2-5.2); BILIRUBIN,TOTAL 0.7 MG/DL (0.3-1.2); CALCIUM LEVEL 8.6 MG/DL (8.3-10.6); CREATININE FOR GFR 0.99 MG/DL (0.55-1.30); GLOMERULAR FILTRATION RATE 57.8 (>39); POTASSIUM SERUM 4.6 MMOL/L (3.5-5.1); TOTAL PROTEIN 7.1 G/DL (5.7-8.2)
== END ==
LOC: M LAB 10:58
PROVIDERS: ATTEND Nurse Practitioner Family
DX: R21 Rash and other nonspecific skin eruption (principal)

== ENCOUNTER → 2023-01-17 | Outpatient (CLI) | payer MEDICARE, BC, MEDICAID | LOC: M SOG 15:26 | PROVIDERS: ATTEND Orthopaedic Surgery Hand Surgery | DX: S52.501A Unspecified fracture of the lower end of right radius, initial encounter for closed fracture (principal) ==

== ENCOUNTER → 2023-02-14 | Outpatient (REF) | payer MEDICARE, MEDICAID | LOC: SKLAB8 07:00 | PROVIDERS: ATTEND Internal Medicine | DX: L12.0 Bullous pemphigoid (principal) ==

== ENCOUNTER → 2023-02-22 | Outpatient (REF) | payer MEDICARE, MEDICAID, OTHER ==
[2023-02-22 12:15] LABS: HEMATOCRIT 33.1 % (36.0-47.0); HEMOGLOBIN 10.2 g/dl (12.0-15.5); MEAN CORPUSCULAR HEMOGLOBIN 26.6 pg (27.0-33.0); MEAN CORPUSCULAR HGB CONC 30.8 g/dl (32.0-36.5); MEAN CORPUSCULAR VOLUME 86.2 fl (80.0-96.0); PLATELET COUNT, AUTOMATED 338 10^3/uL (150-450); RED BLOOD COUNT 3.84 10^6/uL (4.00-5.40); WHITE BLOOD COUNT 12.4 10^3/uL (4.0-10.0)
[2023-02-22 12:47] LABS: CALCIUM LEVEL 8.5 MG/DL (8.3-10.6); CREATININE FOR GFR 1.74 MG/DL (0.55-1.30); GLOMERULAR FILTRATION RATE 30.1 (>39); POTASSIUM SERUM 4.5 MMOL/L (3.5-5.1)
[2023-02-22 14:58] LABS: APPEARANCE, URINE HAZY (CLEAR); BACTERIA, URINE AUTO NEGATIVE (NEGATIVE); BILIRUBIN, URINE AUTO NEGATIVE (NEGATIVE); BLOOD, URINE BLOOD 3+ (NEGATIVE); COLOR, URINE YELLOW (YELLOW); GLUCOSE, URINE (UA) AUTO NEGATIVE (NEGATIVE); KETONE, URINE AUTO NEGATIVE (NEGATIVE); LEUKOCYTE ESTERASE, URINE AUTO NEGATIVE (NEGATIVE); MUCUS, URINE SMALL (NEGATIVE); NITRITE, URINE AUTO NEGATIVE (NEGATIVE); PROTEIN, URINE AUTO 2+ mg/dL (NEGATIVE); RBC, URINE AUTO 32 /HPF (0-3); SPECIFIC GRAVITY URINE AUTO 1.014 (1.002-1.035); SQUAMOUS EPITHELIAL CELL UR AU 1 /HPF (0-6); UROBILINOGEN, URINE AUTO 0.2 mg/dL (0.0-2.0); WBC, URINE AUTO 5 /HPF (0-3)
== END ==
LOC: SKLAB8 11:24
PROVIDERS: ATTEND Internal Medicine
DX: R41.82 Altered mental status, unspecified (principal)

== ENCOUNTER → 2023-03-06 | Outpatient (REF) | payer MEDICARE, MEDICAID, OTHER ==
[2023-03-06 15:25] LABS: CALCIUM LEVEL 8.5 MG/DL (8.3-10.6); CREATININE FOR GFR 1.78 MG/DL (0.55-1.30); GLOMERULAR FILTRATION RATE 29.3 (>39); PHOSPHORUS LEVEL 4.1 MG/DL (2.4-5.1); POTASSIUM SERUM 4.9 MMOL/L (3.5-5.1)
[2023-03-06 15:27] LABS: PTH INTACT 142.9 PG/ML (18.5-88.0)
[2023-03-06 15:29] LABS: TOTAL 25(OH) VITAMIN D 38.5 NG/ML (20.0-100.0)
== END ==
LOC: SKLAB8 07:00
PROVIDERS: ATTEND Internal Medicine
DX: Z13.29 Encounter for screening for other suspected endocrine disorder (principal); Z79.899 Other long term (current) drug therapy

== ENCOUNTER → 2023-03-14 | Outpatient (REF) | payer OTHER, MEDICAID | LOC: M SFHCDERM 15:28 | PROVIDERS: ATTEND Nurse Practitioner Family | DX: Z53.9 Procedure and treatment not carried out, unspecified reason (principal); L20.9 Atopic dermatitis, unspecified ==

== ENCOUNTER → 2023-03-15 | Outpatient (CLI) | payer MEDICARE, MEDICAID | LOC: M RAD 09:11 | PROVIDERS: ATTEND Nurse Practitioner Adult Health | DX: N18.9 Chronic kidney disease, unspecified (principal) ==

== ENCOUNTER → 2023-03-16 | Outpatient (REF) | payer MEDICARE, MEDICAID ==
[2023-03-16 16:06] LABS: HEMATOCRIT 30.6 % (36.0-47.0); HEMOGLOBIN 9.6 g/dl (12.0-15.5); MEAN CORPUSCULAR HEMOGLOBIN 27.7 pg (27.0-33.0); MEAN CORPUSCULAR HGB CONC 31.4 g/dl (32.0-36.5); MEAN CORPUSCULAR VOLUME 88.2 fl (80.0-96.0); PLATELET COUNT, AUTOMATED 263 10^3/uL (150-450); RED BLOOD COUNT 3.47 10^6/uL (4.00-5.40)
[2023-03-16 16:34] LABS: CREATININE FOR GFR 1.7 MG/DL (0.55-1.30); GLOMERULAR FILTRATION RATE 30.9 (>39); POTASSIUM SERUM 4.7 MMOL/L (3.5-5.1)
== END ==
LOC: SKLAB8 13:43
PROVIDERS: ATTEND Internal Medicine
DX: N17.9 Acute kidney failure, unspecified (principal)

== ENCOUNTER → 2023-04-14 | Outpatient (REF) | payer MEDICARE, MEDICAID, OTHER ==
[2023-04-14 12:48] LABS: BASO # 0.1 10^3/uL (0.0-0.2); BASO % 1.1 % (0.0-1.0); EOS # 0.7 10^3/uL (0.0-0.5); EOS % 8.2 % (0.0-3.0); HEMATOCRIT 33.1 % (36.0-47.0); HEMOGLOBIN 10.3 g/dl (12.0-15.5); LYMPH % 11.4 % (24.0-44.0); MEAN CORPUSCULAR HEMOGLOBIN 26.5 pg (27.0-33.0); MEAN CORPUSCULAR HGB CONC 31.1 g/dl (32.0-36.5); MEAN CORPUSCULAR VOLUME 85.1 fl (80.0-96.0); MONO # 0.9 10^3/uL (0.0-0.8); MONO % 10.6 % (2.0-8.0); NEUTROPHILS # 5.8 10^3/uL (1.5-8.5); NEUTROPHILS % 68.3 % (36.0-66.0); PLATELET COUNT, AUTOMATED 268 10^3/uL (150-450); RED BLOOD COUNT 3.89 10^6/uL (4.00-5.40); WHITE BLOOD COUNT 8.4 10^3/uL (4.0-10.0)
[2023-04-14 12:54] LABS: ALBUMIN 3.3 G/DL (3.2-5.2); CALCIUM LEVEL 8.7 MG/DL (8.3-10.6); CREATININE FOR GFR 1.28 MG/DL (0.55-1.30); GLOMERULAR FILTRATION RATE 42.8 (>39); MAGNESIUM LEVEL 1.9 MG/DL (1.8-2.4); PHOSPHORUS LEVEL 4.6 MG/DL (2.4-5.1); POTASSIUM SERUM 4.7 MMOL/L (3.5-5.1)
== END ==
LOC: SKLAB8 11:31
PROVIDERS: ATTEND Nurse Practitioner Adult Health
DX: N18.9 Chronic kidney disease, unspecified (principal)

== ENCOUNTER → 2023-04-17 | Outpatient (REF) | payer MEDICARE, MEDICAID, OTHER ==
[2023-04-17 23:45] LABS: APPEARANCE, URINE CLEAR (CLEAR); BACTERIA, URINE AUTO 1+ (NEGATIVE); BILIRUBIN, URINE AUTO NEGATIVE (NEGATIVE); BLOOD, URINE BLOOD 3+ (NEGATIVE); COLOR, URINE YELLOW (YELLOW); GLUCOSE, URINE (UA) AUTO NEGATIVE (NEGATIVE); KETONE, URINE AUTO NEGATIVE (NEGATIVE); LEUKOCYTE ESTERASE, URINE AUTO NEGATIVE (NEGATIVE); MUCUS, URINE SMALL (NEGATIVE); NITRITE, URINE AUTO NEGATIVE (NEGATIVE); PROTEIN, URINE AUTO NEGATIVE (NEGATIVE); RBC, URINE AUTO 7 /HPF (0-3); SPECIFIC GRAVITY URINE AUTO 1.009 (1.002-1.035); SQUAMOUS EPITHELIAL CELL UR AU 0 /HPF (0-6); UROBILINOGEN, URINE AUTO 0.2 mg/dL (0.0-2.0); WBC, URINE AUTO 2 /HPF (0-3)
== END ==
LOC: SKLAB8 22:30
PROVIDERS: ATTEND Internal Medicine
DX: Z01.818 Encounter for other preprocedural examination (principal); Z79.899 Other long term (current) drug therapy

== ENCOUNTER → 2023-05-25 | Outpatient (REF) | payer MEDICARE, MEDICAID, OTHER ==
[2023-05-25 09:33] LABS: HEMATOCRIT 37.2 % (36.0-47.0); HEMOGLOBIN 11.7 g/dl (12.0-15.5); MEAN CORPUSCULAR HEMOGLOBIN 26.4 pg (27.0-33.0); MEAN CORPUSCULAR HGB CONC 31.5 g/dl (32.0-36.5); MEAN CORPUSCULAR VOLUME 83.8 fl (80.0-96.0); PLATELET COUNT, AUTOMATED 243 10^3/uL (150-450); RED BLOOD COUNT 4.44 10^6/uL (4.00-5.40); WHITE BLOOD COUNT 5.4 10^3/uL (4.0-10.0)
[2023-05-25 10:02] LABS: ALBUMIN 3.3 G/DL (3.2-5.2); BILIRUBIN,TOTAL 0.5 MG/DL (0.3-1.2); CALCIUM LEVEL 9.4 MG/DL (8.3-10.6); CHOLESTEROL RISK RATIO 3.96 (<5); CREATININE FOR GFR 1.17 MG/DL (0.55-1.30); GLOMERULAR FILTRATION RATE 47.5 (>39); HDL CHOLESTEROL 49.2 MG/DL (>40); LDL CHOLESTEROL 127.4 MG/DL (<100); NON-HDL-C 145.8 MG/DL; POTASSIUM SERUM 4.3 MMOL/L (3.5-5.1); TOTAL PROTEIN 7.2 G/DL (5.7-8.2)
[2023-05-25 10:04] LABS: THYROID STIMULATING HORMONE 3.981 uIU/ML (0.55-4.78)
== END ==
LOC: SKLAB8 07:00
PROVIDERS: ATTEND Internal Medicine
DX: F03.90 Unspecified dementia, unspecified severity, without behavioral disturbance, psychotic disturbance, mood disturbance, and anxiety (principal); I10 Essential (primary) hypertension; E78.5 Hyperlipidemia, unspecified

== ENCOUNTER → 2023-06-01 | Outpatient (REF) | payer MEDICARE, MEDICAID, OTHER ==
[2023-06-01 06:42] LABS: BASO # 0.1 10^3/uL (0.0-0.2); BASO % 0.8 % (0.0-1.0); EOS # 0.1 10^3/uL (0.0-0.5); HEMATOCRIT 35.1 % (36.0-47.0); HEMOGLOBIN 11.2 g/dl (12.0-15.5); LYMPH % 16.9 % (24.0-44.0); MEAN CORPUSCULAR HEMOGLOBIN 26.5 pg (27.0-33.0); MEAN CORPUSCULAR HGB CONC 31.9 g/dl (32.0-36.5); MONO # 0.9 10^3/uL (0.0-0.8); MONO % 14.9 % (2.0-8.0); NEUTROPHILS # 3.8 10^3/uL (1.5-8.5); NEUTROPHILS % 65.1 % (36.0-66.0); PLATELET COUNT, AUTOMATED 204 10^3/uL (150-450); RED BLOOD COUNT 4.23 10^6/uL (4.00-5.40); WHITE BLOOD COUNT 5.9 10^3/uL (4.0-10.0)
[2023-06-01 07:09] LABS: ALBUMIN 3.2 G/DL (3.2-5.2); CALCIUM LEVEL 8.5 MG/DL (8.3-10.6); CREATININE FOR GFR 1.18 MG/DL (0.55-1.30); PHOSPHORUS LEVEL 3.3 MG/DL (2.4-5.1); POTASSIUM SERUM 4.1 MMOL/L (3.5-5.1)
== END ==
LOC: SKLAB8 07:00
PROVIDERS: ATTEND Internal Medicine
DX: N18.9 Chronic kidney disease, unspecified (principal)

== ENCOUNTER → 2023-06-02 | Outpatient (REF) | payer MEDICARE, MEDICAID, OTHER ==
[2023-06-02 14:40] LABS: APPEARANCE, URINE CLEAR (CLEAR); BACTERIA, URINE AUTO NEGATIVE (NEGATIVE); BILIRUBIN, URINE AUTO NEGATIVE (NEGATIVE); BLOOD, URINE BLOOD 2+ (NEGATIVE); COLOR, URINE YELLOW (YELLOW); GLUCOSE, URINE (UA) AUTO NEGATIVE (NEGATIVE); KETONE, URINE AUTO NEGATIVE (NEGATIVE); LEUKOCYTE ESTERASE, URINE AUTO NEGATIVE (NEGATIVE); NITRITE, URINE AUTO NEGATIVE (NEGATIVE); PROTEIN, URINE AUTO NEGATIVE (NEGATIVE); RBC, URINE AUTO 25 /HPF (0-3); SPECIFIC GRAVITY URINE AUTO 1.015 (1.002-1.035); SQUAMOUS EPITHELIAL CELL UR AU 2 /HPF (0-6); UROBILINOGEN, URINE AUTO 0.2 mg/dL (0.0-2.0); WBC, URINE AUTO 1 /HPF (0-3)
[2023-06-02 15:05] LABS: TOTAL PROTEIN,RANDOM URINE 23.9 MG/DL (0.0-14.0)
[2023-06-02 15:10] LABS: CREATININE,RANDOM URINE 73.9 MG/DL
== END ==
LOC: SKLAB8 14:04
PROVIDERS: ATTEND Internal Medicine Nephrology
DX: N17.9 Acute kidney failure, unspecified (principal)

== ENCOUNTER → 2023-08-28 | Outpatient (REF) | payer MEDICARE, MEDICAID ==
[2023-08-28 11:20] LABS: HEMATOCRIT 39.2 % (36.0-47.0); HEMOGLOBIN 12.3 g/dl (12.0-15.5); MEAN CORPUSCULAR HEMOGLOBIN 27.5 pg (27.0-33.0); MEAN CORPUSCULAR HGB CONC 31.4 g/dl (32.0-36.5); MEAN CORPUSCULAR VOLUME 87.5 fl (80.0-96.0); PLATELET COUNT, AUTOMATED 221 10^3/uL (150-450); RED BLOOD COUNT 4.48 10^6/uL (4.00-5.40); WHITE BLOOD COUNT 9.3 10^3/uL (4.0-10.0)
[2023-08-28 11:52] LABS: CALCIUM LEVEL 8.9 MG/DL (8.3-10.6); CREATININE FOR GFR 1.11 MG/DL (0.55-1.30); GLOMERULAR FILTRATION RATE 50.5 (>39); POTASSIUM SERUM 4.3 MMOL/L (3.5-5.1)
== END ==
LOC: SKLAB8 09:05
PROVIDERS: ATTEND Internal Medicine
DX: N18.9 Chronic kidney disease, unspecified (principal)

== ENCOUNTER → 2023-09-07 | Outpatient (REF) | payer MEDICARE, MEDICAID ==
[~2023-09-07] MED LIST changes: -CLIN75CA PO; +CLIN75CA2 PO
[2023-09-07 09:11] LABS: BASO # 0.1 10^3/uL (0.0-0.2); BASO % 1.1 % (0.0-1.0); EOS # 0.5 10^3/uL (0.0-0.5); EOS % 6.4 % (0.0-3.0); HEMATOCRIT 40.4 % (36.0-47.0); HEMOGLOBIN 13.1 g/dl (12.0-15.5); MEAN CORPUSCULAR HEMOGLOBIN 27.6 pg (27.0-33.0); MEAN CORPUSCULAR HGB CONC 32.4 g/dl (32.0-36.5); MEAN CORPUSCULAR VOLUME 85.2 fl (80.0-96.0); MONO # 0.8 10^3/uL (0.0-0.8); MONO % 10.9 % (2.0-8.0); NEUTROPHILS # 4.8 10^3/uL (1.5-8.5); NEUTROPHILS % 67.5 % (36.0-66.0); PLATELET COUNT, AUTOMATED 218 10^3/uL (150-450); RED BLOOD COUNT 4.74 10^6/uL (4.00-5.40); WHITE BLOOD COUNT 7.2 10^3/uL (4.0-10.0)
[2023-09-07 09:40] LABS: ALBUMIN 3.4 G/DL (3.2-5.2); CREATININE FOR GFR 1.06 MG/DL (0.55-1.30); GLOMERULAR FILTRATION RATE 53.2 (>39); MAGNESIUM LEVEL 1.9 MG/DL (1.8-2.4); PHOSPHORUS LEVEL 3.5 MG/DL (2.4-5.1); POTASSIUM SERUM 4.7 MMOL/L (3.5-5.1)
== END ==
LOC: SKLAB8 07:00
PROVIDERS: ATTEND Internal Medicine
DX: N18.9 Chronic kidney disease, unspecified (principal)

== ENCOUNTER 2023-09-24 12:40 | Observation (INO) | payer MEDICARE, MEDICAID ==
[~2023-09-24] VITALS: Ht 160 cm; Wt 74.5 kg
[2023-09-24 14:47] LABS: BASO # 0.1 10^3/uL (0.0-0.2); BASO % 0.7 % (0.0-1.0); EOS # 0.3 10^3/uL (0.0-0.5); EOS % 3.6 % (0.0-3.0); HEMATOCRIT 38.7 % (36.0-47.0); HEMOGLOBIN 12.8 g/dl (12.0-15.5); LYMPH # 1.2 10^3/uL (1.5-5.0); MEAN CORPUSCULAR HEMOGLOBIN 28.6 pg (27.0-33.0); MEAN CORPUSCULAR HGB CONC 33.1 g/dl (32.0-36.5); MEAN CORPUSCULAR VOLUME 86.4 fl (80.0-96.0); MONO # 1.1 10^3/uL (0.0-0.8); MONO % 13.1 % (2.0-8.0); NEUTROPHILS % 68.4 % (36.0-66.0); PLATELET COUNT, AUTOMATED 235 10^3/uL (150-450); RED BLOOD COUNT 4.48 10^6/uL (4.00-5.40); WHITE BLOOD COUNT 8.7 10^3/uL (4.0-10.0)
[2023-09-24 15:00] LABS: INR 1.22; PARTIAL THROMBOPLASTIN TIME 30.9 SECONDS (24.8-34.2); PROTHROMBIN TIME 15.1 SECONDS (12.5-14.5)
[2023-09-24] MEDS: ONDANSETRON 4MG 2ML VIAL IV ONE (15:02)
[2023-09-24] MEDS: ACETAMINOPHEN *IV* 1,000 MG in IV 1 EA IV ONE (15:03)
[2023-09-24 15:15] LABS: CK-MB VALUE MASS 2.1 NG/ML (<3.6); CREATININE FOR GFR 1.17 MG/DL (0.55-1.30); GLOMERULAR FILTRATION RATE 47.5 (>39); MB/CK RELATIVE INDEX 3.23 (< OR =4); POTASSIUM SERUM 4.3 MMOL/L (3.5-5.1)
[2023-09-24] MEDS: FACTOR XA,INACTIVATED-ZHZO 400 MG in APPROPRIATE DILUENT 40 ML IV ONE (15:20)
[2023-09-24] MEDS ORDERED: FLEEENE12 PR (15:20)
[2023-09-24] MEDS ORDERED: MILKSUS3 PO (15:20)
[2023-09-24] MEDS ORDERED: ENSU-12 PO (15:20)
[2023-09-24] MEDS ORDERED: LEVA45AE INH (15:20)
[2023-09-24] MEDS ORDERED: SERT-141 PO (15:20)
[2023-09-24] MEDS ORDERED: LORA-622 PO (15:20)
[2023-09-24] MEDS ORDERED: AMLO1TAB24 PO (15:20)
[2023-09-24] MEDS ORDERED: ALPR0.25 PO (15:20)
[2023-09-24] MEDS ORDERED: OLAN1TAB16 PO (15:20)
[2023-09-24] MEDS ORDERED: BISA10SU4 PR (15:20)
[2023-09-24] MEDS ORDERED: ACET1TAB55 PO (15:20)
[2023-09-24] MEDS ORDERED: HOME MED LIST COMPLETE! XX SCH (15:25)
[2023-09-24] MEDS: FACTOR XA,INACTIVATED-ZHZO 480 MG in APPROPRIATE DILUENT 48 ML IV ONE (16:12)
[2023-09-24] MEDS ORDERED: MOM 30ML SUSPENSION UDC PO PRN (16:55)
[2023-09-24] MEDS ORDERED: SCOPOLAMINE 1MG TRANSDERMAL PATCH TOP PRN (16:55)
[2023-09-24] MEDS ORDERED: BISACODYL 10MG SUPP PR PRN (16:55)
[2023-09-24] MEDS ORDERED: ACETAMINOPHEN TAB 650MG DOSE (2X325MG) PO PRN (16:55)
[2023-09-24] MEDS ORDERED: HYOSCYAMINE SULFATE 0.125 MG SUBL TABLET PO PRN (16:55)
[2023-09-24] MEDS ORDERED: LEVALBUTEROL 1.25MG 0.5ML CONCENTRATE NEB INH PRN (17:25)
[2023-09-24 17:31] VITALS: BP 142/65; TEMP 97.8; O2SAT 95
[2023-09-24] MEDS: ALPRAZolam 0.25 MG TAB PO SCH (19:43)
[2023-09-24] MEDS: atenoloL 25 MG TAB PO SCH (19:43)
[2023-09-24] MEDS: OLANZapine 5 MG TAB PO SCH (19:43)
[2023-09-24] MEDS: LORazepam 1 MG TAB PO PRN (19:43)
[2023-09-24] MEDS: SERTRALINE HCL 25 MG TABLET PO SCH (19:44)
[2023-09-24] MEDS: BUDESONIDE 180MCG INHALER (PULMICORT FLEXHALER) INH SCH (20:00)
[2023-09-25] MEDS: BUDESONIDE 0.5 MG/2 ML INHALATION SUSPENSION NEB SCH (08:00)
[2023-09-25] MEDS: MORPHINE 10MG/0.5ML ORAL CONCENTRATE SOLUTION U/D SL PRN (08:56)
[2023-09-25] MEDS: ONDANSETRON 4MG 2ML VIAL IV PRN (08:56)
[2023-09-25] MEDS ORDERED: MORPHINE 10MG/0.5ML ORAL CONCENTRATE SOLUTION U/D SL PRN (10:55)
[2023-09-25] MEDS ORDERED: LORazepam 0.5 MG TAB PO PRN (10:55)
[2023-09-25] MEDS ORDERED: MORP1SOL5 PO (13:48)
[2023-09-25] MEDS ORDERED: ATIV1TAB10 PO (13:48)
[2023-09-25] MEDS ORDERED: HYOS125TA PO (13:48)
== END 2023-09-25 14:25 ==
LOC: M ED 12:40 → M ED INP 12:41 → M MS5PR 18:00
PROVIDERS: ADMIT Internal Medicine Nephrology; ATTEND Internal Medicine Nephrology
DX: I62.9 Nontraumatic intracranial hemorrhage, unspecified (principal); Z51.5 Encounter for palliative care; F03.93 Unspecified dementia, unspecified severity, with mood disturbance; I48.0 Paroxysmal atrial fibrillation; I13.0 Hypertensive heart and chronic kidney disease with heart failure and stage 1 through stage 4 chronic kidney disease, or unspecified chronic kidney disease; J45.909 Unspecified asthma, uncomplicated; E78.5 Hyperlipidemia, unspecified; I87.2 Venous insufficiency (chronic) (peripheral); F32.A Depression, unspecified; F41.9 Anxiety disorder, unspecified; K59.00 Constipation, unspecified; N18.30 Chronic kidney disease, stage 3 unspecified; N25.81 Secondary hyperparathyroidism of renal origin; D68.59 Other primary thrombophilia; M19.90 Unspecified osteoarthritis, unspecified site; H93.19 Tinnitus, unspecified ear; I50.32 Chronic diastolic (congestive) heart failure; Z90.49 Acquired absence of other specified parts of digestive tract; Z90.79 Acquired absence of other genital organ(s); Z87.891 Personal history of nicotine dependence; Z79.01 Long term (current) use of anticoagulants; Z79.899 Other long term (current) drug therapy; Z88.0 Allergy status to penicillin; Z88.1 Allergy status to other antibiotic agents; Z88.2 Allergy status to sulfonamides; Z88.5 Allergy status to narcotic agent; Z88.8 Allergy status to other drugs, medicaments and biological substances; Z91.010 Allergy to peanuts; Z91.030 Bee allergy status; Z91.040 Latex allergy status; Z91.048 Other nonmedicinal substance allergy status; Z66 Do not resuscitate
CPT/HCPCS: 70450; 71045; 80048; 82550; 82553; 84484; 85025; 85610; 85730; 93005; 93041; 94760; 96365; 96367; 96375; 96376; 99285; G0378; J0131; J2405; J7169